=== PATIENT | female | born 1995 ===

== ENCOUNTER 2018-08-09 00:13 | Emergency (ER) | payer SELFPAY | END 2018-08-09 00:42 | disposition left against medical advice (07) | LOC: ED 00:13 | DX: F41.9 Anxiety disorder, unspecified (principal); Z53.21 Procedure and treatment not carried out due to patient leaving prior to being seen by health care provider ==

== ENCOUNTER 2018-11-16 14:07 | Inpatient (IN) | payer SELFPAY ==
[2018-11-16] MEDS ORDERED: NACL 0.9% 1000 ML 1,000 ML IV ONE ×2 (14:32→19:52)
[2018-11-16 15:27] LABS: Basophils % (Auto) 0.5 % (0.0-1.8); Eosinophils % (Auto) 0.5 % (0.0-4.3); Hematocrit 40.1 % (30.3-42.9); Hemoglobin 13.4 gm/dl (10.1-14.3); Lymphocytes # (Auto) 1.4 K/mm3 (1.2-5.4); Lymphocytes % (Auto) 19.7 % (13.4-35.0); Mean Corpuscular HGB Conc 33 % (30-34); Mean Corpuscular Volume 91 fl (79-97); Monocytes # (Auto) 0.7 K/mm3 (0.0-0.8); Monocytes % (Auto) 10.2 % (0.0-7.3); Platelet Count 155 K/mm3 (140-440); Red Blood Count 4.43 M/mm3 (3.65-5.03); Red Cell Distribution Width 18.9 % (13.2-15.2)
[2018-11-16 15:37] LABS: Alanine Aminotransferase 14 units/L (7-56); Albumin 4.5 g/dL (3.9-5); BUN/Creatinine Ratio 10; Blood Urea Nitrogen 9 mg/dL (7-17); Calcium 9.8 mg/dL (8.4-10.2); Hemolysis Index 5
[2018-11-16] MEDS ORDERED: DILAUDID IV ONE (17:46)
[2018-11-16] MEDS ORDERED: ZOFRAN IV ONE (17:46)
--- NOTE | 2018-11-16 17:53 | Emergency Department Report ---
<RODRI JONES - Last Filed: 11/16/18 21:58> ED Abdominal Pain HPI - General Chief Complaint: Abdominal Pain Stated Complaint: EXTREME GASTRIC PAIN Source: patient Mode of arrival: Ambulatory Limitations: No Limitations - History of Present Illness Initial Comments: This is a 22-year-old female that presents with abdominal pain, nausea, vomiting, and diarrhea for 3-4 days. Patient states diarrhea started 2 weeks ago and was intermittent. Patient states she drank 2 large beers per day. When symptoms subsided she will start drinking. Patient reports abdominal pain and vomiting increased since this morning. She also reports chest discomfort. She reports pain is 7 out of 10 on pain scale. A dull achy sensation to upper abdomen. She denies frequency, urgency, dysuria, vaginal bleeding, or vaginal discharge. MD Complaint: abdominal pain Onset/Timin -: days(s) Location: LUQ, RUQ Radiation: none Migration to: epigastric Severity: moderate Severity scale (0 -10): 7 Quality: aching, dull Consistency: constant Improves With: nothing Worsens With: eating, bowel movement Associated Symptoms: nausea, vomiting, diarrhea. denies: fever, chills, constipation, dysuria, hematemesis, hematochezia, melena, hematuria, anorexia, syncope Treatments Prior to Arrival: NSAIDs - Related Data LMP Date: 10/22/18 Allergies Allergy/AdvReac Type Severity Reaction Status Date / Time apple Allergy Itching Verified 11/16/18 14:29 Fish Containing Products Allergy Itching Verified 11/16/18 14:29 ED Review of Systems Constitutional: denies: chills, fever Respiratory: denies: cough, shortness of breath, wheezing Cardiovascular: chest pain (epigastric pain). denies: palpitations Gastrointestinal: abdominal pain (upper abdominal pain), nausea, vomiting, diarrhea Musculoskeletal: denies: back pain, joint swelling, arthralgia Skin: denies: rash, lesions Neurological: denies: headache, weakness, paresthesias Psychiatric: denies: anxiety, depression ED Past Medical Hx - Past Medical History Previous Medical History?: No - Surgical History Past Surgical History?: No - Social History Smoking Status: Current Every Day Smoker Substance Use Type: Alcohol ED Physical Exam - General Limitations: No Limitations General appearance: alert, in no apparent distress - Respiratory Respiratory exam: Present: normal lung sounds bilaterally. Absent: respiratory distress - Cardiovascular Cardiovascular Exam: Present: regular rate, normal rhythm. Absent: systolic murmur, diastolic murmur, rubs, gallop - GI/Abdominal GI/Abdominal exam: Present: soft, tenderness (left upper quadrant tenderness), normal bowel sounds. Absent: distended, guarding, rebound, rigid, organomegaly, mass - Back Exam Back exam: Absent: CVA tenderness (R), CVA tenderness (L) - Neurological Exam Neurological exam: Present: alert, oriented X3 - Psychiatric Psychiatric exam: Present: normal affect, normal mood - Skin Skin exam: Present: warm, dry, intact, normal color. Absent: rash ED Medical Decision Making - Lab Data Result diagrams: 11/16/18 15:08 11/16/18 15:08 Lab Results 11/16/18 11/16/18 11/16/18 Range/Units 15:08 15:08 19:38 WBC 7.1 (4.5-11.0) K/mm3 RBC 4.43 (3.65-5.03) M/mm3 Hgb 13.4 (10.1-14.3) gm/dl Hct 40.1 (30.3-42.9) % MCV 91 (79-97) fl MCH 30 (28-32) pg MCHC 33 (30-34) % RDW 18.9 H (13.2-15.2) % Plt Count 155 (140-440) K/mm3 Lymph % (Auto) 19.7 (13.4-35.0) % [place] % (Auto) 10.2 H (0.0-7.3) % Eos % (Auto) 0.5 (0.0-4.3) % Baso % (Auto) 0.5 (0.0-1.8) % Lymph # 1.4 (1.2-5.4) K/mm3 [place] # 0.7 (0.0-0.8) K/mm3 Eos # 0.0 (0.0-0.4) K/mm3 Baso # 0.0 (0.0-0.1) K/mm3 Seg Neutrophils % 69.1 (40.0-70.0) % Seg Neutrophils # 4.9 (1.8-7.7) K/mm3 Sodium 138 (137-145) mmol/L Potassium 3.8 (3.6-5.0) mmol/L Chloride 99.4 (98-107) mmol/L Carbon Dioxide 23 (22-30) mmol/L Anion Gap 19 mmol/L BUN 9 (7-17) mg/dL Creatinine 0.9 (0.7-1.2) mg/dL Estimated GFR > 60 ml/min BUN/Creatinine Ratio 10 % Glucose 110 H (65-100) mg/dL Calcium 9.8 (8.4-10.2) mg/dL Total Bilirubin 1.90 H (0.1-1.2) mg/dL AST 43 H (5-40) units/L ALT 14 (7-56) units/L Alkaline Phosphatase 73 (35-129) units/L Total Protein 8.3 H (6.3-8.2) g/dL Albumin 4.5 (3.9-5) g/dL Albumin/Globulin Ratio 1.2 % Lipase 464 H (13-60) units/L Urine Color Chey (Yellow) Urine Turbidity Slightly-cloudy (Clear) Urine pH 8.0 H (5.0-7.0) Ur Specific [place] 1.028 (1.003-1.030) Urine Protein 100 mg/dl (Negative) mg/dL Urine Glucose (UA) Neg (Negative) mg/dL Urine Ketones 20 (Negative) mg/dL Urine Blood Neg (Negative) Urine Nitrite Neg (Negative) Ur Reducing Substances Not Reportable Urine Bilirubin Sm (Negative) Urine Ictotest Negative (Negative) Urine Urobilinogen < 2.0 (<2.0) mg/dL Ur Leukocyte Esterase Tr (Negative) Urine WBC (Auto) 2.0 (0.0-6.0) /HPF Urine RBC (Auto) 1.0 (0.0-6.0) /HPF U Epithel Cells (Auto) 39.0 H (0-13.0) /HPF Urine Mucus 3+ /HPF Urine HCG, Qual Negative (Negative) - Radiology Data Radiology results: report reviewed FINAL REPORT PROCEDURE: US ABDOMEN LIMITED TECHNIQUE: Real-time sonography was performed of the right upper quadrant with image documentation. CPT 44844 HISTORY: LUQ tenderness, elevated lipase COMPARISON: No prior studies are available for comparison. FINDINGS: Liver, right kidney and visualized pancreatic head and body demonstrate normal echotexture. Gallbladder is well distended with normal outlines are normal wall thickness without calculi or pericholecystic collections. Common duct is 6 millimeters in caliber. Portal vein is patent with antegrade flow. Proximal abdominal aorta is 16 millimeters in caliber. Right kidney measures 10 x 4 x 4.4 centimeters without calculi or hydronephrosis.. IMPRESSION: Common duct is 6 millimeters in caliber. Otherwise negative study ultrasound right upper quadrant. - Medical Decision Making Patient was examined by me. Vitals are normal and patient is in slight distress. IV site obtained. Given normal saline 1 L bolus 2, Zofran 4 mg IV, and Dilaudid 2 mg IV. Obtained labs and ultrasound of abdomen. Ultrasound dictated by radiologist and report reviewed by myself. Common duct is 6 millimeters in caliber. Otherwise negative study ultrasound right upper quadrant. There is an elevation in bili young, liver enzymes, and lipase. Consulted with the attending Dr. Da Silva. Order CT of abdomen and pelvis with IV contrast, pending. Chart signed to Elise PACK J. ED Disposition Clinical Impression: Pancreatitis, alcoholic, acute Qualifiers: Acute pancreatitis complication: unspecified Qualified Code(s): K85.20 - Alcohol induced acute pancreatitis without necrosis or infection Disposition: OP ADMIT IP TO THIS HOSP Condition: Stable Instructions: Abdominal Pain (ED) Referrals: PRIMARY CARE, [Primary Care Provider] - 3-5 Days <ERICH CHOU - Last Filed: 11/17/18 01:51> ED Abdominal Pain HPI - History of Present Illness Initial Comments: Spoke to hospitalists regarding patient needed to be admitted. Hospitalist reports he'll be down to evaluate. ED Review of Systems ROS: Stated complaint: EXTREME GASTRIC PAIN Other details as noted in HPI ED Course Vital Signs 11/16/18 14:24 Temperature 97.8 F Pulse Rate 82 Respiratory 18 Rate Blood Pressure 152/109 O2 Sat by Pulse 100 Oximetry ED Medical Decision Making - Lab Data Result diagrams: 11/16/18 15:08 11/16/18 15:08 - Radiology Data FINAL REPORT EXAM: CT ABDOMEN PELVIS W CON HISTORY: LUQ tenderness, common bile duct 6 mm COMPARISON: Abdominal ultrasound from November 16, 2018. TECHNIQUE: Contiguous axial images were obtained. Additional sagittal and coronal reformatted images were obtained. Administration of IV contrast given per institution protocol. Images submitted for interpretation. FINDINGS: Mild linear atelectasis at the lung bases. No calcified gallstones or biliary dilatation. There is heterogeneous enhancement and edema of the pancreatic head and uncinate process with adjacent fat stranding or fluid. Findings compatible with acute pancreatitis. No abscess or evidence of pancreatic necrosis. There is secondary inflammation adjacent duodenum. Mild focal fatty infiltration of the liver along the falciform ligament. Mild diffuse fatty infiltration of the liver. Spleen is unremarkable. No adrenal mass. No solid renal lesion. No hydronephrosis. Aorta and IVC normal in caliber. Urinary bladder, uterus, right ovary grossly unremarkable. Dominant follicle left ovary measuring 1.7 centimeters. Small amount of free fluid in the pelvis. The appendix is normal in caliber. Left colon is decompressed causing accentuation of the colonic wall. Mild segmental colitis in that region is not excluded. Lumbar vertebral body heights are preserved. Bony pelvis is grossly intact. IMPRESSION: Findings compatible with [id number] acute pancreatitis involving the pancreatic head and uncinate process. There is reactive inflammation adjacent duodenum. Wall thickening left colon accentuated by decompressed state. Mild colitis in that region is not excluded. Transcribed By: LMA Dictated By: JETT PALUMBO MD Electronically Authenticated By: JETT PALUMBO MD Signed Date/Time: 11/17/18 0102 - Medical Decision Making Chart has been assigned to me by Ms. Cheryl Jones nurse practitioner. is aware of patient's case. Patient's CT shows a [id number] pancreatitis. We will light patient to be admitted to the hospital for pain control fluids. Critical care attestation.: If time is entered above; I have spent that time in minutes in the direct care of this critically ill patient, excluding procedure time. ED Disposition Is pt being admited?: Yes Does the pt Need Aspirin: No
[2018-11-16] MEDS ORDERED: DILAUDID ONE (18:12)
[2018-11-16] MEDS ORDERED: BENADRYL IV ONE (18:50)
[2018-11-16 20:10] LABS: HCG Qualitative,Urine Negative (Negative)
[2018-11-16 20:12] LABS: Bilirubin,Urine SM (Negative); Blood,Urine NEG (Negative); Color,Urine Amber (Yellow); Mucus,Urine 3+ /HPF; Urobilinogen,Urine < 2.0 mg/dL (<2.0)
[2018-11-16 20:21] LABS: Ictotest,Urine Negative (Negative)
--- NOTE | 2018-11-16 21:02 | Ultrasound Report ---
FINAL REPORT PROCEDURE: US ABDOMEN LIMITED TECHNIQUE: Real-time sonography was performed of the right upper quadrant with image documentation. CPT 61597 HISTORY: LUQ tenderness, elevated lipase COMPARISON: No prior studies are available for comparison. FINDINGS: Liver, right kidney and visualized pancreatic head and body demonstrate normal echotexture. Gallbladd er is well distended with normal outlines are normal wall thickness without calculi or pericholecysti c collections. Common duct is 6 millimeters in caliber. Portal vein is patent with antegrade flow. Pr oximal abdominal aorta is 16 millimeters in caliber. Right kidney measures 10 x 4 x 4.4 centimeters w ithout calculi or hydronephrosis.. IMPRESSION: Common duct is 6 millimeters in caliber. Otherwise negative study ultrasound right upper quadrant.
--- NOTE | 2018-11-17 01:02 | Cat Scan Report ---
FINAL REPORT EXAM: CT ABDOMEN PELVIS W CON HISTORY: LUQ tenderness, common bile duct 6 mm COMPARISON: Abdominal ultrasound from November 16, 2018. TECHNIQUE: Contiguous axial images were obtained. Additional sagittal and coronal reformatted images were obtained. Administration of IV contrast given per institution protocol. Images submitted for in terpretation. FINDINGS: Mild linear atelectasis at the lung bases. No calcified gallstones or biliary dilatation. There is he terogeneous enhancement and edema of the pancreatic head and uncinate process with adjacent fat stran ding or fluid. Findings compatible with acute pancreatitis. No abscess or evidence of pancreatic necr osis. There is secondary inflammation adjacent duodenum. Mild focal fatty infiltration of the liver along the falciform ligament. Mild diffuse fatty infiltrat ion of the liver. Spleen is unremarkable. No adrenal mass. No solid renal lesion. No hydronephrosis. Aorta and IVC normal in caliber. Urinary bladder, uterus, right ovary grossly unremarkable. Dominant follicle left ovary measuring 1.7 centimeters. Small amount of free fluid in the pelvis. The appendix is normal in caliber. Left colon is decompressed causing accentuation of the colonic wal l. Mild segmental colitis in that region is not excluded. Lumbar vertebral body heights are preserved. Bony pelvis is grossly intact. IMPRESSION: Findings compatible with hiua-bt-vnozngxo acute pancreatitis involving the pancreatic head and uncina te process. There is reactive inflammation adjacent duodenum. Wall thickening left colon accentuated by decompressed state. Mild colitis in that region is not excl uded.
[2018-11-17] MEDS ORDERED: ZOFRAN ONE (03:44)
[2018-11-17] MEDS ORDERED: DILAUDID ONE (03:44)
[2018-11-17] MEDS: ZOFRAN IV PRN ×2 (03:48→17:52)
[2018-11-17] MEDS: DILAUDID IV PRN ×2 (03:48→17:52)
[2018-11-17] MEDS ORDERED: BENADRYL IV PRN (04:12)
[2018-11-17] MEDS ORDERED: BENADRYL ONE (04:15)
[2018-11-17] MEDS: NACL 0.9% 1000 ML 1,000 ML IV SCH ×2 (06:00→17:51)
--- NOTE | 2018-11-17 07:43 | History and Physical Report ---
CHIEF COMPLAINT: Abdominal pain, nausea, vomiting, and diarrhea. HISTORY OF PRESENT ILLNESS: The patient is a 22-year-old female who has been having abdominal pain with nausea, vomiting, and diarrhea going on for 3-4 days. The patient said the diarrhea started about 2 weeks ago, but it was occurring intermittently with abdominal pain. The patient admitted to drinking 2 large beers every day and said that when her symptoms subside she will start drinking again. The patient states she has had similar symptoms before but did not have the pain get to this severe level. There is no history of fever or chills and no history of urinary frequency or dysuria. The patient presented for evaluation. PAST MEDICAL HISTORY: Pertinent for abdominal pain in the past. PAST SURGICAL HISTORY: Unremarkable. FAMILY HISTORY: Noncontributory. SOCIAL HISTORY: The patient drinks alcohol regularly. No cigarette, does not use illicit drugs. MEDICATIONS: The patient's home medications are not known at this time. ALLERGIES: THE PATIENT IS ALLERGIC TO APPLE, FISH, AND FISH CONTAINING PRODUCTS. REVIEW OF SYSTEMS: CONSTITUTIONAL: There is no fever, no chills, no diaphoresis. HEENT: There is no headache or sore throat. CARDIOVASCULAR SYSTEM: Show no chest pain or orthopnea. RESPIRATORY SYSTEM: There is no shortness of breath or cough. GASTROINTESTINAL SYSTEM: Abdominal pain is present. Nausea, vomiting, and diarrhea is present. No constipation. NEUROLOGICAL SYSTEM: There is no numbness, no dizziness, no altered mental status. MUSCULOSKELETAL SYSTEM: There is no joint pain or swelling. DERMATOLOGICAL SYSTEM: There is no skin rash or itching. GENITOURINARY SYSTEM: There is no dysuria, hematuria, or flank pain. Rest of system review is normal. PHYSICAL EXAMINATION: GENERAL: At the time of exam, the patient was found to be alert, oriented x 3, and not in acute distress. VITAL SIGNS: Shows temperature of 97.8 degrees Fahrenheit, pulse of 82, respirations 18, blood pressure 152/109, O2 sat of 100% on room air. HEENT: Shows pupils to be equal, round, and reactive to light and accommodating. Extraocular muscles are intact. NECK: Supple with no JVD or carotid bruits. CARDIOVASCULAR SYSTEM: Showed normal first and second heart sounds with no gallops or murmurs. RESPIRATORY SYSTEM: Show good air entry on both sides of the lungs with no abnormal breath sounds. GASTROINTESTINAL SYSTEM: Show abdomen to be full, soft, nontender with no organomegaly or rigidity. NEUROLOGIC: Shows no focal deficits. MUSCULOSKELETAL SYSTEM: Show no joint swelling or tenderness. DERMATOLOGICAL SYSTEM: Show no skin rash. GENITOURINARY SYSTEM: Showing no costovertebral angle tenderness. LABORATORY DATA AND IMAGING: The patient had a CT of the abdomen and pelvis done that shows findings compactable with mild to moderate acute pancreatitis involving the pancreatic head and the uncinate process, and also the CT report showed that there is reactive inflammation in the adjacent duodenum. The patient had abdominal ultrasound done that shows common bile duct of about 6 mm in caliber. DIAGNOSES: Acute pancreatitis. PLAN: 1. The patient will be admitted to medical surgical hurt. 2. The patient will remain n.p.o. until pain resolved. 3. The patient will be on IV normal saline at 125 mL an hour. 4. The patient will be on IV Dilaudid 1 mg every 4 hours as needed for pain and IV Zofran 4 mg every 8 hours for nausea and vomiting. 5. The patient will have a lipase level checked this morning. JOB# [id number] OCN/NTS
[2018-11-17] MEDS ORDERED: VASELINE LIP THERAPY TP PRN (08:01)
[2018-11-17] MEDS: HEPARIN SUB-Q SCH ×2 (09:43→21:34)
--- NOTE | 2018-11-17 11:04 | Event Note ---
Date: 11/17/18 Patient with abdominal pain, diagnosed with acute pancreatitis. Consult GI.
--- NOTE | 2018-11-17 11:44 | Gastroenterology Consultation ---
History of Present Illness - Reason for Consult Consult date: 11/17/18 acute pancreatitis Requesting physician: CISCO DOUGLASS - History of Present Illness 22 yo female with pmh of chronic alcohol use admitted for acute abdominal pain due to acute pancreatitis. She reports having upper abdominal pain for the past week, it was sharp nonradiating pain associated with nausea and vomiting. No fever, blood in the stool, or melena. She feels better this morning compared to last night. She wants to eat. No prior episode of pancreatitis. No weight loss. She drinks 2 beers daily at least for past several years. Past History Past Medical History: No medical history Past Surgical History: No surgical history Social history: alcohol abuse Medications and Allergies Allergies Allergy/AdvReac Type Severity Reaction Status Date / Time apple Allergy Itching Verified 11/16/18 14:29 Fish Containing Products Allergy Itching Verified 11/16/18 14:29 Home Medications Medication Instructions Recorded Confirmed Last Taken Type No Known Home Medications [No 11/17/18 11/17/18 Unknown History Reported Home Medications] Active Meds: Active Medications Diphenhydramine HCl (Benadryl) 25 mg IV Q6H PRN PRN Reason: Itching Last Admin: 11/17/18 04:18 Dose: 25 mg Documented by: Heparin Sodium (Porcine) (Heparin) 5,000 unit SUB-Q Q12HR DAMARIS Last Admin: 11/17/18 09:43 Dose: Not Given Documented by: Hydromorphone HCl (Dilaudid) 1 mg IV Q4H PRN PRN Reason: Pain , Severe (7-10) Last Admin: 11/17/18 03:48 Dose: 1 mg Documented by: Hydrophilic Ointment (Vaseline Lip Therapy) 1 applic TP DIRECT PRN PRN Reason: Dry Lips Sodium Chloride (Nacl 0.9% 1000 Ml) 1,000 mls @ 125 mls/hr IV DIRECT DAMARIS Last Admin: 11/17/18 06:00 Dose: 125 mls/hr Documented by: Ondansetron HCl (Zofran) 4 mg IV Q8H PRN PRN Reason: Nausea And Vomiting Last Admin: 11/17/18 03:48 Dose: 4 mg Documented by: Review of Systems - Review of Systems Constitutional: no weight loss, no weight gain Cardiovascular: no chest pain, no edema, no palpitations Gastrointestinal: abdominal pain, nausea, vomiting, no hematemesis Musculoskeletal: no joint pain, no muscle weakness Exam - Constitutional Vital Signs: Temp Pulse Resp BP Pulse Ox 98.7 F 80 14 132/89 99 11/17/18 04:30 11/17/18 06:00 11/17/18 06:00 11/17/18 04:30 11/17/18 04:30 General appearance: no acute distress - EENT Eyes: EOM intact ENT: hearing intact - Neck Neck: supple - Respiratory Respiratory effort: normal Respiratory: bilateral: CTA - Cardiovascular Rhythm: regular Heart Sounds: Present: S1 & S2 - Gastrointestinal General gastrointestinal: Present: soft, non-tender, non-distended, normal bowel sounds - Integumentary Integumentary: Present: clear, warm - Neurologic Neurological: alert and oriented x3 - Labs CBC & Chem 7: 11/16/18 15:08 11/16/18 15:08 Lab Results: Laboratory Results - last 24 hr 11/16/18 11/16/18 11/16/18 15:08 15:08 19:38 WBC 7.1 RBC 4.43 Hgb 13.4 Hct 40.1 MCV 91 MCH 30 MCHC 33 RDW 18.9 H Plt Count 155 Lymph % (Auto) 19.7 [place] % (Auto) 10.2 H Eos % (Auto) 0.5 Baso % (Auto) 0.5 Lymph # 1.4 [place] # 0.7 Eos # 0.0 Baso # 0.0 Seg Neutrophils % 69.1 Seg Neutrophils # 4.9 Sodium 138 Potassium 3.8 Chloride 99.4 Carbon Dioxide 23 Anion Gap 19 BUN 9 Creatinine 0.9 Estimated GFR > 60 BUN/Creatinine Ratio 10 Glucose 110 H Calcium 9.8 Total Bilirubin 1.90 H AST 43 H ALT 14 Alkaline Phosphatase 73 Total Protein 8.3 H Albumin 4.5 Albumin/Globulin Ratio 1.2 Lipase 464 H Urine Color Chey Urine Turbidity Slightly-cloudy Urine pH 8.0 H Ur Specific [place] 1.028 Urine Protein 100 mg/dl Urine Glucose (UA) Neg Urine Ketones 20 Urine Blood Neg Urine Nitrite Neg Ur Reducing Substances Not Reportable Urine Bilirubin Sm Urine Ictotest Negative Urine Urobilinogen < 2.0 Ur Leukocyte Esterase Tr Urine WBC (Auto) 2.0 Urine RBC (Auto) 1.0 U Epithel Cells (Auto) 39.0 H Urine Mucus 3+ Urine HCG, Qual Negative 11/17/18 05:30 WBC RBC Hgb Hct MCV MCH MCHC RDW Plt Count Lymph % (Auto) [place] % (Auto) Eos % (Auto) Baso % (Auto) Lymph # [place] # Eos # Baso # Seg Neutrophils % Seg Neutrophils # Sodium Potassium Chloride Carbon Dioxide Anion Gap BUN Creatinine Estimated GFR BUN/Creatinine Ratio Glucose Calcium Total Bilirubin AST ALT Alkaline Phosphatase Total Protein Albumin Albumin/Globulin Ratio Lipase 417 H Urine Color Urine Turbidity Urine pH Ur Specific [place] Urine Protein Urine Glucose (UA) Urine Ketones Urine Blood Urine Nitrite Ur Reducing Substances Urine Bilirubin Urine Ictotest Urine Urobilinogen Ur Leukocyte Esterase Urine WBC (Auto) Urine RBC (Auto) U Epithel Cells (Auto) Urine Mucus Urine HCG, Qual - Imaging CT Scan: report reviewed Assessment and Plan 22 yo female with h/o chronic alcohol use here with acute pancreatitis. - Patient Problems (1) Pancreatitis, alcoholic, acute Current Visit: Yes Status: Acute Qualifiers: Acute pancreatitis complication: unspecified Qualified Code(s): K85.20 - Alcohol induced acute pancreatitis without necrosis or infection Plan to address problem: Clinically improving. - Normal biliary duct and no gallstones seen on CT abdomen. - mild elevation of bilirubin and liver enzymes. Rec: - can start clear liquids and advance as tolerated. - continue with IVF. - recommend stool studies if continues to have diarrhea. - will follow.
[2018-11-18] MEDS: ZOFRAN IV PRN (05:56)
[2018-11-18] MEDS: NACL 0.9% 1000 ML 1,000 ML IV SCH (05:59)
[2018-11-18 06:07] LABS: Alanine Aminotransferase 9 units/L (7-56); Albumin 3.6 g/dL (3.9-5); BUN/Creatinine Ratio 7; Blood Urea Nitrogen 5 mg/dL (7-17); Calcium 8.5 mg/dL (8.4-10.2); Hemolysis Index 9
[2018-11-18 13:36] VITALS: BP 142/92
--- NOTE | 2018-11-18 14:10 | Discharge Summary ---
Providers - Providers Date of Admission: 11/17/18 01:50 Date of discharge: 11/18/18 Attending physician: CISCO DOUGLASS 11/17/18 11:02 Consult to Physician [CONS] Routine Comment: Consulting Provider: VICKY JURADO Physician Instructions: Reason For Exam: Acute pancreatitis Primary care physician: [facility]ETING [facility]EARCHER Hospitalization Condition: Fair Hospital course: Patient is 23 yo presented with abdominal pain, nausea and vomiting. She was evaluated in ED and diagnosed with acute pancreatitis. Patient was admitted, evaluated by GI. She improved, was started on liquid diet, tolearated diet and was advanced. She was then discharged home after pain resolved Disposition: DC-01 TO HOME OR SELFCARE - Discharge Diagnoses (1) Pancreatitis, alcoholic, acute Status: Acute Qualifiers: Acute pancreatitis complication: unspecified Qualified Code(s): K85.20 - Alcohol induced acute pancreatitis without necrosis or infection (2) Hypokalemia Status: Acute Core Measure Documentation - Palliative Care Palliative Care/ Comfort Measures: Not Applicable - Core Measures Any of the following diagnoses?: none Exam - Constitutional Vitals: Temp Pulse Resp BP Pulse Ox 98.1 F 65 20 142/92 97 11/18/18 11:38 11/18/18 11:38 11/18/18 11:38 11/18/18 11:38 11/18/18 11:38 Plan Activity: no restrictions Diet: low fat, low cholesterol, low salt Additional Instructions: 1.Follow up with PCP or [facility] in 1 week. 2.Follow up with [facility] in 1 week. 3.Avoid Alcohol Follow up with: PRIMARY CARE, [Primary Care Provider] - 3-5 Days Prescriptions: Promethazine [Phenergan TAB] 25 mg PO Q6HR PRN #20 tab PRN Reason: Nausea or vomiting Tramadol HCl [Ultram] 50 mg PO Q6H PRN #10 tablet PRN Reason: Pain , Severe (7-10)
--- NOTE | 2018-11-18 14:15 | Gastroenterology Progress Note ---
Addendum entered and electronically signed by VICKY JURADO MD 11/18/18 18:14: Patient seen and examined on 11/18/2017. Agree with A/P and recommendations as stated. Clinically improving and tolerating liquids. Ok for discharge if tolerating solids. Original Note: Assessment and Plan 1.acute pancreatitis 22 yo female with h/o chronic alcohol use here with acute pancreatitis. -afebrile -WBC WNL -LFTs now WNL -lipase trending down (285) -normal biliary duct and no gallstones see on CT -clinically, patient reports feeling better with abd pain now resolved and no N/V. Tolerating clears. -advance diet to GI soft -alcohol cessation discussed/encouraged with patient -continue to trend labs and supportive care -if tolerates advanced diet, okay to d/c per GI standpoint with follow up in clinic Subjective Date of service: 11/18/18 Principal diagnosis: pancreatitis Interval history: No acute distress. Reports feeling better with no abd pain or N/V. Tolerating clears. Objective - Constitutional Vitals: Temp Pulse Resp BP Pulse Ox 98.1 F 65 20 142/92 97 11/18/18 11:38 11/18/18 11:38 11/18/18 11:38 11/18/18 11:38 11/18/18 11:38 General appearance: no acute distress - Respiratory Respiratory: bilateral: CTA - Cardiovascular Rhythm: regular Heart Sounds: Present: S1 & S2 - Gastrointestinal General gastrointestinal: Present: soft, non-tender, non-distended, normal bowel sounds - Neurologic Neurological: alert and oriented x3 - Labs CBC & Chem 7: 11/16/18 15:08 11/18/18 05:26 Labs: Laboratory Results - last 24 hr 11/18/18 05:26 Sodium 136 L Potassium 3.5 L Chloride 99.9 Carbon Dioxide 23 Anion Gap 17 BUN 5 L Creatinine 0.7 Estimated GFR > 60 BUN/Creatinine Ratio 7 Glucose 89 Calcium 8.5 Total Bilirubin 1.10 AST 18 ALT 9 Alkaline Phosphatase 52 Total Protein 6.6 D Albumin 3.6 L Albumin/Globulin Ratio 1.2 Lipase 285 H
[2018-11-18] MEDS: HEPARIN SUB-Q SCH (16:18)
== END 2018-11-18 18:36 | disposition home or self-care (01) | DRG 440 ==
LOC: ED 14:07 → 3A 11-17 01:50
PROVIDERS: ADMIT Internal Medicine; ATTEND Internal Medicine
DX: K85.20 Alcohol induced acute pancreatitis without necrosis or infection (principal); F17.200 Nicotine dependence, unspecified, uncomplicated; F10.10 Alcohol abuse, uncomplicated
CPT/HCPCS: 36415; 74177; 76700; 80053; 81001; 81025; 83690; 85025; 96374; 99285; G0378; J1170; J1200; J1644; J2405; J7030; Q9967

== ENCOUNTER 2019-02-15 14:02 | Emergency (ER) | payer OTHER ==
[2019-02-15] MEDS ORDERED: D50W (25GM) Syringe IV ONE ×4 (14:05→21:35)
[2019-02-15] MEDS ORDERED: ATIVAN ONE (14:13)
[2019-02-15] MEDS ORDERED: ATIVAN IV ONE (14:14)
[2019-02-15] MEDS: D50W (25GM) Vial IV PRN ×2 (14:16→21:24)
--- NOTE | 2019-02-15 14:18 | Emergency Department Report ---
<CISCO MUNIZ - Last Filed: 02/15/19 18:53> ED General Adult HPI - General Chief complaint: Altered Mental Status Stated complaint: SEIZURE/FELL Time Seen by Provider: 02/15/19 14:11 Source: patient, RN notes reviewed Mode of arrival: Stretcher Limitations: Altered Mental Status, Physical Limitation - History of Present Illness Initial comments: This is a 23-year-old female. The patient is not known to this provider previously The patient apparently has a past medical history of alcohol abuse, and pancreatitis. The patient is brought to the hospital by an unknown person. Apparently, the patient was walking into the waiting room, for an unknown reason, and then apparently fell and had a seizure. The patient was brought back emergently. Initially in the emergency room, the patient is awake but confused, and moving 4 extremities. She is found to have evidence of self-inflicted wounds on her left upper extremities. One of these wounds appears to be fresh. Patient was found to be hypoglycemic with a sugar of less than 20. Patient was given 2 A of D50. After 2 A of D50, the patient became more awake. However, she was still confused, stated she was here to get checked out for . She then stated she wasn't sure if she was . She may note comments about homicidality or suicidality. When asked about the apparent self-inflicted wounds on her left upper extremity, the patient was not able to say when they were sustained, and she was evasive about whether or not she cut herself. She was placed on a 1013 for presumed self-injurious behavior, and inability to care for herself, as well as alcohol dependence. No active seizures so far since her initial seizure. Her initial ciwa score was 6 -: This afternoon Quality: constant Improves with: none Worsens with: none - Related Data Home Medications Medication Instructions Recorded Confirmed Last Taken No Known Home Medications [No 02/15/19 02/15/19 Unknown Reported Home Medications] Allergies Allergy/AdvReac Type Severity Reaction Status Date / Time apple Allergy Itching Verified 11/16/18 14:29 Fish Containing Products Allergy Itching Verified 11/16/18 14:29 ED Review of Systems Comment: Unobtainable due to pts medical conditions Constitutional: malaise Gastrointestinal: denies: vomiting Neurological: confusion Psychiatric: anxiety ED Past Medical Hx - Past Medical History Hx Congestive Heart Failure: No Hx Diabetes: No Hx Seizures: Yes Hx Asthma: Yes Hx COPD: No - Social History Smoking Status: Current Every Day Smoker - Medications Home Medications: Home Medications Medication Instructions Recorded Confirmed Last Taken Type No Known Home Medications [No 02/15/19 02/15/19 Unknown History Reported Home Medications] ED Physical Exam - General Limitations: Altered Mental Status General appearance: in no apparent distress - Head Head exam: Present: other (is a left infraorbital ecchymosis) - Eye Eye exam: Present: PERRL, EOMI. Absent: normal appearance - ENT ENT exam: Present: normal exam, normal orophraynx, mucous membranes moist, normal external ear exam - Neck Neck exam: Present: normal inspection, full ROM. Absent: tenderness, meningismus - Respiratory Respiratory exam: Present: normal lung sounds bilaterally. Absent: respiratory distress - Cardiovascular Cardiovascular Exam: Present: normal rhythm, tachycardia, normal heart sounds. Absent: systolic murmur, diastolic murmur, rubs, gallop - GI/Abdominal GI/Abdominal exam: Present: soft. Absent: distended, tenderness, guarding, rebound, rigid, pulsatile mass - Extremities Exam Extremities exam: Present: full ROM, other (2+ pulses noted in the bilateral upper, lower extremities. Compartments soft. No long bony tenderness. The pelvis is stable.). Absent: normal inspection (numerous linear cuts noted to the left upper extremity, many appear to be old, however, there is a fresh appearing cut with a scab on the distal volar aspect of the left upper extremity. This is associated with a 3-4 cm linear cut), pedal edema, calf tenderness - Back Exam Back exam: Present: normal inspection, full ROM - Neurological Exam Neurological exam: Present: altered, other (Extraocular movements intact. Tongue midline. No facial droop. Facial sensation intact to light touch in the V1, V2, V3 distribution bilaterally. 5 and 5 strength in 4 extremities.. Sensation is intact to light touch in 4 extremities.) - Psychiatric Psychiatric exam: Present: anxious - Skin Skin exam: Present: warm, dry, intact, normal color, ecchymosis (she has a left infraorbital ecchymosis. She cannot tell me she has she sustained this ecchymosis). Absent: rash ED Course - Reevaluation(s) Reevaluation #1: 02/15/19 17:12 Differential diagnosis, including not limited to: Alcohol dependence, alcohol withdrawal seizure, starvation ketosis, hypoglycemia, malnutrition, electrolyte derangement Assessment and plan: 23-year-old female with known history of alcohol abuse, dependence, who has evidence of self-inflicted wounds, and has an incongruous history as to how she got a left infraorbital ecchymosis, and left upper extremity, wound, with resolved hypoglycemia. Patient given 2 A of D50, and then screening laboratory studies were drawn. Therefore, I suspect her hyperglycemia is secondary to medications that were given. Her anion gap is reviewed and appreciated, and likely starvation ketosis, dehydration, secondary to seizure. Other screening laboratory studies so far have been unremarkable. Noncontrast CT scan of the brain is negative for acute disease. Patient now awake and alert, moving 4 extremities, has a nonfocal motor exam, with no cervical spine pain or tenderness. Currently, at this point time, she is clinically sober. I'm concerned about self-injurious behavior, suicidality, and alcohol dependence. The patient my pain at this point in time represents a danger to herself, manifested by left upper extremity wounds, consistent with self- mutilation, as well as alcohol dependence, alcohol withdrawal. She this point time does not damage straight the ability to independently care for herself. We will correct her electrolyte derangements, I started her on D5 half-normal, and obtain a psychiatric consultation. Reevaluation #2: 02/15/19 18:53 Patient reassessed She is afebrile with reassuring vital signs. She is now much more awake and alert. She reports that her boyfriend's mother brought her to the hospital. She reports that she was coming to the hospital for evaluation of one year of chest discomfort, and "intestinal discomfort." Her anion gap has improved, lactic acidosis is not present, patient tolerating liquid feeds and oral feeds, and has not had significant hypoglycemia. She is seen and evaluated by the psychiatric team, who agrees that patient is 1013 criteria. We will continue the patient on glycemic monitoring, Macrobid, alcohol withdrawal protocol, and potassium repletion. At this point in time, that is not appear to be in immediate medical contraindication to psychiatric admission, evaluation, consultation. Reevaluation #3: 02/15/19 18:56 Patient does not require laceration repair, the left distal volar wrist injury may be managed with soap, water, and as stated bacitracin. ED Medical Decision Making - Lab Data Result diagrams: 02/15/19 14:17 02/15/19 17:30 Vital Signs 02/15/19 02/15/19 02/15/19 14:05 14:20 14:26 Temperature 98.4 F 98.4 F Pulse Rate 110 H 107 H Respiratory 22 20 Rate Blood Pressure Blood Pressure 155/88 [Right] O2 Sat by Pulse 98 98 97 Oximetry 02/15/19 02/15/19 02/15/19 14:30 14:46 15:00 Temperature Pulse Rate 114 H 102 H 96 H Respiratory 18 22 22 Rate Blood Pressure 145/87 143/101 Blood Pressure [Right] O2 Sat by Pulse 97 99 98 Oximetry 02/15/19 02/15/19 02/15/19 15:02 15:24 15:30 Temperature Pulse Rate 97 H Respiratory 20 22 Rate Blood Pressure 143/101 128/100 Blood Pressure [Right] O2 Sat by Pulse 97 98 Oximetry 02/15/19 02/15/19 02/15/19 15:46 16:00 16:16 Temperature Pulse Rate 92 H 87 88 Respiratory 20 21 17 Rate Blood Pressure 143/101 135/93 135/93 Blood Pressure [Right] O2 Sat by Pulse 97 98 96 Oximetry Lab Results 02/15/19 02/15/19 02/15/19 Range/Units 14:17 14:17 14:17 WBC 5.2 (4.5-11.0) K/mm3 RBC 4.10 (3.65-5.03) M/mm3 Hgb 13.0 (10.1-14.3) gm/dl Hct 39.7 (30.3-42.9) % MCV 97 (79-97) fl MCH 32 (28-32) pg MCHC 33 (30-34) % RDW 16.1 H (13.2-15.2) % Plt Count 95 L (140-440) K/mm3 PT 14.5 (12.2-14.9) Sec. INR 1.06 (0.87-1.13) Sodium 130 L (137-145) mmol/L Potassium 3.8 (3.6-5.0) mmol/L Chloride 88.9 L (98-107) mmol/L Carbon Dioxide 13 L (22-30) mmol/L Anion Gap 32 mmol/L BUN 10 (7-17) mg/dL Creatinine 0.8 (0.7-1.2) mg/dL Estimated GFR > 60 ml/min BUN/Creatinine Ratio 13 % Glucose 426 H (65-100) mg/dL POC Glucose (70-105) Calcium 8.9 (8.4-10.2) mg/dL Magnesium 1.30 L (1.7-2.3) mg/dL Total Bilirubin 1.00 (0.1-1.2) mg/dL AST 60 H (5-40) units/L ALT 35 (7-56) units/L Alkaline Phosphatase 50 (35-129) units/L Total Creatine Kinase (30-135) units/L Total Protein 7.9 (6.3-8.2) g/dL Albumin 4.4 (3.9-5) g/dL Albumin/Globulin Ratio 1.3 % HCG, Quant (0-4) mIU/mL Urine Color (Yellow) Urine Turbidity (Clear) Urine pH (5.0-7.0) Ur Specific [place] (1.003-1.030) Urine Protein (Negative) mg/dL Urine Glucose (UA) (Negative) mg/dL Urine Ketones (Negative) mg/dL Urine Blood (Negative) Urine Nitrite (Negative) Urine Bilirubin (Negative) Urine Urobilinogen (<2.0) mg/dL Ur Leukocyte Esterase (Negative) Urine WBC (Auto) (0.0-6.0) /HPF Urine RBC (Auto) (0.0-6.0) /HPF U Epithel Cells (Auto) (0-13.0) /HPF Urine Bacteria (Auto) (Negative) /HPF Urine Mucus /HPF Salicylates (2.8-20.0) mg/dL Urine Opiates Screen Urine Methadone Screen Acetaminophen (10.0-30.0) ug/mL Ur Barbiturates Screen Ur Phencyclidine Scrn Ur Amphetamines Screen U Benzodiazepines Scrn Urine Cocaine Screen U Marijuana (THC) Screen Drugs of Abuse Note Plasma/Serum Alcohol (0-0.07) % 02/15/19 02/15/19 02/15/19 Range/Units 14:17 14:17 14:22 WBC (4.5-11.0) K/mm3 RBC (3.65-5.03) M/mm3 Hgb (10.1-14.3) gm/dl Hct (30.3-42.9) % MCV (79-97) fl MCH (28-32) pg MCHC (30-34) % RDW (13.2-15.2) % Plt Count (140-440) K/mm3 PT (12.2-14.9) Sec. INR (0.87-1.13) Sodium (137-145) mmol/L Potassium (3.6-5.0) mmol/L Chloride (98-107) mmol/L Carbon Dioxide (22-30) mmol/L Anion Gap mmol/L BUN (7-17) mg/dL Creatinine (0.7-1.2) mg/dL Estimated GFR ml/min BUN/Creatinine Ratio % Glucose (65-100) mg/dL POC Glucose (70-105) Calcium (8.4-10.2) mg/dL Magnesium (1.7-2.3) mg/dL Total Bilirubin (0.1-1.2) mg/dL AST (5-40) units/L ALT (7-56) units/L Alkaline Phosphatase (35-129) units/L Total Creatine Kinase 219 H (30-135) units/L Total Protein (6.3-8.2) g/dL Albumin (3.9-5) g/dL Albumin/Globulin Ratio % HCG, Quant < 2 (0-4) mIU/mL Urine Color (Yellow) Urine Turbidity (Clear) Urine pH (5.0-7.0) Ur Specific [place] (1.003-1.030) Urine Protein (Negative) mg/dL Urine Glucose (UA) (Negative) mg/dL Urine Ketones (Negative) mg/dL Urine Blood (Negative) Urine Nitrite (Negative) Urine Bilirubin (Negative) Urine Urobilinogen (<2.0) mg/dL Ur Leukocyte Esterase (Negative) Urine WBC (Auto) (0.0-6.0) /HPF Urine RBC (Auto) (0.0-6.0) /HPF U Epithel Cells (Auto) (0-13.0) /HPF Urine Bacteria (Auto) (Negative) /HPF Urine Mucus /HPF Salicylates (2.8-20.0) mg/dL Urine Opiates Screen Urine Methadone Screen Acetaminophen (10.0-30.0) ug/mL Ur Barbiturates Screen Ur Phencyclidine Scrn Ur Amphetamines Screen U Benzodiazepines Scrn Urine Cocaine Screen U Marijuana (THC) Screen Drugs of Abuse Note Plasma/Serum Alcohol < 0.01 (0-0.07) % 02/15/19 02/15/19 02/15/19 Range/Units 14:22 14:22 14:22 WBC (4.5-11.0) K/mm3 RBC (3.65-5.03) M/mm3 Hgb (10.1-14.3) gm/dl Hct (30.3-42.9) % MCV (79-97) fl MCH (28-32) pg MCHC (30-34) % RDW (13.2-15.2) % Plt Count (140-440) K/mm3 PT (12.2-14.9) Sec. INR (0.87-1.13) Sodium (137-145) mmol/L Potassium (3.6-5.0) mmol/L Chloride (98-107) mmol/L Carbon Dioxide (22-30) mmol/L Anion Gap mmol/L BUN (7-17) mg/dL Creatinine (0.7-1.2) mg/dL Estimated GFR ml/min BUN/Creatinine Ratio % Glucose (65-100) mg/dL POC Glucose (70-105) Calcium (8.4-10.2) mg/dL Magnesium (1.7-2.3) mg/dL Total Bilirubin (0.1-1.2) mg/dL AST (5-40) units/L ALT (7-56) units/L Alkaline Phosphatase (35-129) units/L Total Creatine Kinase (30-135) units/L Total Protein (6.3-8.2) g/dL Albumin (3.9-5) g/dL Albumin/Globulin Ratio % HCG, Quant (0-4) mIU/mL Urine Color [place]y (Yellow) Urine Turbidity Slightly-cloudy (Clear) Urine pH 6.0 (5.0-7.0) Ur Specific [place] 1.033 H (1.003-1.030) Urine Protein 30 mg/dl (Negative) mg/dL Urine Glucose (UA) 50 (Negative) mg/dL Urine Ketones 80 (Negative) mg/dL Urine Blood Neg (Negative) Urine Nitrite Pos (Negative) Urine Bilirubin Neg (Negative) Urine Urobilinogen < 2.0 (<2.0) mg/dL Ur Leukocyte Esterase Sm (Negative) Urine WBC (Auto) 12.0 H (0.0-6.0) /HPF Urine RBC (Auto) 5.0 (0.0-6.0) /HPF U Epithel Cells (Auto) 15.0 H (0-13.0) /HPF Urine Bacteria (Auto) 1+ (Negative) /HPF Urine Mucus 3+ /HPF Salicylates < 0.3 L (2.8-20.0) mg/dL Urine Opiates Screen Urine Methadone Screen Acetaminophen < 5.0 L (10.0-30.0) ug/mL Ur Barbiturates Screen Ur Phencyclidine Scrn Ur Amphetamines Screen U Benzodiazepines Scrn Urine Cocaine Screen U Marijuana (THC) Screen Drugs of Abuse Note Plasma/Serum Alcohol (0-0.07) % 02/15/19 02/15/19 02/15/19 Range/Units 14:22 15:03 16:07 WBC (4.5-11.0) K/mm3 RBC (3.65-5.03) M/mm3 Hgb (10.1-14.3) gm/dl Hct (30.3-42.9) % MCV (79-97) fl MCH (28-32) pg MCHC (30-34) % RDW (13.2-15.2) % Plt Count (140-440) K/mm3 PT (12.2-14.9) Sec. INR (0.87-1.13) Sodium (137-145) mmol/L Potassium (3.6-5.0) mmol/L Chloride (98-107) mmol/L Carbon Dioxide (22-30) mmol/L Anion Gap mmol/L BUN (7-17) mg/dL Creatinine (0.7-1.2) mg/dL Estimated GFR ml/min BUN/Creatinine Ratio % Glucose (65-100) mg/dL POC Glucose 206 H 137 H (70-105) Calcium (8.4-10.2) mg/dL Magnesium (1.7-2.3) mg/dL Total Bilirubin (0.1-1.2) mg/dL AST (5-40) units/L ALT (7-56) units/L Alkaline Phosphatase (35-129) units/L Total Creatine Kinase (30-135) units/L Total Protein (6.3-8.2) g/dL Albumin (3.9-5) g/dL Albumin/Globulin Ratio % HCG, Quant (0-4) mIU/mL Urine Color (Yellow) Urine Turbidity (Clear) Urine pH (5.0-7.0) Ur Specific [place] (1.003-1.030) Urine Protein (Negative) mg/dL Urine Glucose (UA) (Negative) mg/dL Urine Ketones (Negative) mg/dL Urine Blood (Negative) Urine Nitrite (Negative) Urine Bilirubin (Negative) Urine Urobilinogen (<2.0) mg/dL Ur Leukocyte Esterase (Negative) Urine WBC (Auto) (0.0-6.0) /HPF Urine RBC (Auto) (0.0-6.0) /HPF U Epithel Cells (Auto) (0-13.0) /HPF Urine Bacteria (Auto) (Negative) /HPF Urine Mucus /HPF Salicylates (2.8-20.0) mg/dL Urine Opiates Screen Presumptive negative Urine Methadone Screen Presumptive negative Acetaminophen (10.0-30.0) ug/mL Ur Barbiturates Screen Presumptive negative Ur Phencyclidine Scrn Presumptive negative Ur Amphetamines Screen Presumptive negative U Benzodiazepines Scrn Presumptive negative Urine Cocaine Screen Presumptive negative U Marijuana (THC) Screen Presumptive negative Drugs of Abuse Note Disclamer Plasma/Serum Alcohol (0-0.07) % - EKG Data -: EKG Interpreted by Me EKG shows normal: sinus rhythm - EKG Data When compared to previous EKG there are: previous EKG unavailable 02/15/19 17:15 This is a left axis deviation, sinus, 92 bpm, left anterior fascicular block, atrial enlargement, not having chest pain, this is abnormal EKG, this is not consistent with ST elevation myocardial infarction. - Radiology Data Radiology results: report reviewed, image reviewed interpreted by me: Noncontrast CT scan of the brain is interpreted as negative for acute disease. X-ray the chest is negative for acute disease. Critical Care Time: Yes Critical care time in (mins) excluding proc time.: 60 ED Disposition Clinical Impression: Hypokalemia, Alcohol withdrawal seizure, Self-injurious behavior, Nausea and vomiting, Hypomagnesemia, Thrombocytopenia, UTI (urinary tract infection), Medical clearance for psychiatric admission Disposition: DC/TX-65 PSY HOSP/PSY UNIT Is pt being admited?: No Does the pt Need Aspirin: No Condition: Stable Referrals: CAROLINA MONDRAGON MD [Primary Care Provider] - 3-5 Days <NIMO HOLLINGSWORTH - Last Filed: 02/16/19 04:03> ED Review of Systems ROS: Stated complaint: SEIZURE/FELL Other details as noted in HPI ED Course Vital Signs 02/15/19 02/15/19 02/15/19 14:05 14:20 14:26 Temperature 98.4 F 98.4 F Pulse Rate 110 H 107 H Respiratory 22 20 Rate Blood Pressure Blood Pressure 155/88 [Right] O2 Sat by Pulse 98 98 97 Oximetry 02/15/19 02/15/19 02/15/19 14:30 14:46 15:00 Temperature Pulse Rate 114 H 102 H 96 H Respiratory 18 22 22 Rate Blood Pressure 145/87 143/101 Blood Pressure [Right] O2 Sat by Pulse 97 99 98 Oximetry 02/15/19 02/15/19 02/15/19 15:02 15:24 15:30 Temperature Pulse Rate 97 H Respiratory 20 22 Rate Blood Pressure 143/101 128/100 Blood Pressure [Right] O2 Sat by Pulse 97 98 Oximetry 02/15/19 02/15/19 02/15/19 15:46 16:00 16:16 Temperature Pulse Rate 92 H 87 88 Respiratory 20 21 17 Rate Blood Pressure 143/101 135/93 135/93 Blood Pressure [Right] O2 Sat by Pulse 97 98 96 Oximetry 02/15/19 02/15/19 02/15/19 16:30 16:46 17:00 Temperature Pulse Rate Respiratory Rate Blood Pressure 139/103 139/103 139/103 Blood Pressure [Right] O2 Sat by Pulse 99 98 96 Oximetry 02/15/19 02/15/19 02/15/19 17:16 17:30 17:46 Temperature Pulse Rate 102 H 94 H Respiratory 22 16 Rate Blood Pressure 139/103 143/97 143/97 Blood Pressure [Right] O2 Sat by Pulse 97 100 99 Oximetry 02/15/19 02/15/19 02/15/19 19:00 19:30 19:40 Temperature 98.2 F Pulse Rate 96 H 82 Respiratory 21 18 15 Rate Blood Pressure 112/76 Blood Pressure 131/91 [Right] O2 Sat by Pulse 95 100 100 Oximetry 02/15/19 02/15/19 02/16/19 23:00 23:18 01:00 Temperature Pulse Rate 96 H 93 H 73 Respiratory 18 22 16 Rate Blood Pressure 131/91 131/91 139/103 Blood Pressure [Right] O2 Sat by Pulse 100 99 97 Oximetry - Reevaluation(s) Reevaluation #4: 02/16/19 00:02 RN informed me the patient complains of headache, pain with swallowing, and upper abdominal pain. Patient states she came here because she had nausea, vomiting for the past 2 days with upper abdominal pain. History of pancreatitis and gallstones as per patient. On previous medical record review patient was admitted here in November 2018 for acute pancreatitis. Right upper quadrant ultrasound did not show gallstones at that time. There was She has not had alcohol in 2 days due to these symptoms and has a history of alcohol withdrawal tremors. As per record patient presented with seizures when Dr. Muniz assessed the patient. Patient also is noted to have a UTI and recurrent hypoglycemia despite D5 saline infusion. Patient requiring repeated IV bolus of D50. Patient does have some mild epigastric pain. Lipase added to last lab draw. We will perform CT abdomen and pelvis. Macrobid ordered by Dr. Muniz To start tomorrow. Rocephin dose ordered in ED. I suspect that initial elevated anion gap due to alcohol ketosis vs starvation ketosis given elevated ketones in urine. Additional d5 1/2 Ns ordered at 200ml/hr 02/16/19 03:50 D5 1/2 NS was never started by RN after completion of 1L bolus ordered by Dr Muniz. RN has been providing juice to pt who is tolerating po intake. ct abd/pelvis does not show any acute findings and lipase only mildly elevated. 02/16/19 03:57 repeat glucose in 100 range. Nurse informed to continue IVF as ordered for another liter and encourge fluid intake. will add prn zofran orders for nausea. awaiting mental health assessment for placement. Thrombocytopenia noted likely secondary to chronic alcohol abuse. ED Medical Decision Making - Lab Data Result diagrams: 02/15/19 14:17 02/15/19 17:30 - Radiology Data PROCEDURE: CT ABDOMEN PELVIS W CON TECHNIQUE: Computerized axial tomography of the abdomen and pelvis was performed after the IV injection of iodinated nonionic contrast. CT DOSE LENGTH PRODUCT: mGycm HISTORY: upper abd pain n,v x2 days COMPARISONS: None . FINDINGS: Visualized lower thorax: No significant abnormality. Liver: The liver is enlarged and fatty. There is no discrete mass.. Spleen: Normal size and attenuation. Gallbladder and biliary system: Normal. Pancreas: Normal. Adrenals: Normal. Kidneys: Normal. GI tract: There is no bowel obstruction, colitis or enteritis. The appendix is normal. . Lymph nodes and mesentery: Normal. Vasculature: Normal.. Bladder: Normal. Reproductive organs: Uterus is unremarkable. There is a 4 cm cyst in the left ovary.. Peritoneum: There is no ascites or free air, abscess or adenopathy.. Musculoskeletal structures: No significant abnormality. IMPRESSION: The liver is enlarged and fatty. There is no discrete mass. There is no bowel obstruction, colitis or enteritis. The appendix is normal. Uterus is unremarkable. There is a 4 cm cyst in the left ovary. There is no ascites or free air, abscess or adenopathy. Critical care attestation.: If time is entered above; I have spent that time in minutes in the direct care of this critically ill patient, excluding procedure time. ED Disposition Time of Disposition: 04:01 (awaiting acceptance)
[2019-02-15 14:41] LABS: Hematocrit 39.7 % (30.3-42.9); Mean Corpuscular HGB Conc 33 % (30-34); Mean Corpuscular Volume 97 fl (79-97); Red Cell Distribution Width 16.1 % (13.2-15.2)
[2019-02-15 14:46] LABS: Bacteria,Urine 1+ /HPF (Negative); Bilirubin,Urine NEG (Negative); Blood,Urine NEG (Negative); Color,Urine Amber (Yellow); Mucus,Urine 3+ /HPF; Urobilinogen,Urine < 2.0 mg/dL (<2.0)
[2019-02-15 14:51] LABS: INR 1.06 (0.87-1.13)
[2019-02-15 14:52] LABS: Amphetamine Screen,Urine PRESUMPTIVE NEGATIVE; Benzodiazepines Screen,Urine PRESUMPTIVE NEGATIVE; Cannabinoid Screen,Urine PRESUMPTIVE NEGATIVE; Cocaine Screen,Urine PRESUMPTIVE NEGATIVE; Methadone Screen,Urine PRESUMPTIVE NEGATIVE; Opiate Screen,Urine PRESUMPTIVE NEGATIVE
[2019-02-15 14:57] LABS: Alanine Aminotransferase 35 units/L (7-56); Albumin 4.4 g/dL (3.9-5); BUN/Creatinine Ratio 13; Blood Urea Nitrogen 10 mg/dL (7-17); Calcium 8.9 mg/dL (8.4-10.2); Hemolysis Index 23
[2019-02-15 15:18] LABS: Platelet Count 95 K/mm3 (140-440)
[2019-02-15] MEDS ORDERED: MAGNESIUM SULFATE 2GM/50ML 2 GM/50 ML BAG IV ONE (15:46)
[2019-02-15] MEDS ORDERED: NACL 0.9% 1000 ML 2,000 ML IV ONE (15:46)
[2019-02-15] MEDS ORDERED: ATIVAN IV PRN ×2 (15:46)
--- NOTE | 2019-02-15 16:20 | Cat Scan Report ---
PROCEDURE: CT HEAD/BRAIN WO CON TECHNIQUE: Spiral CT imaging of the brain was obtained without the use of IV contrast. HISTORY: sz facial trauma` COMPARISONS: FINDINGS: Brain: Brain density appears normal. No evidence of intracranial hemorrhage. No parenchymal hemorr obdulia, mass lesions or mass effect are seen. No abnormal extra-axial fluid collects or masses are see n. Ventricles: Ventricles are normal size and are midline. Bone Windows: No evidence of skull fracture. Paranasal sinuses: There is mild mucosal thickening in posterior ethmoid air cells on the right. Smal l air-fluid levels are seen in the right side of the sphenoid sinus. Visualized paranasal sinuses oth erwise are clear. The maxillary sinuses are not visualized. Mastoid air cells: Clear. IMPRESSION: Negative unenhanced CT scan of the brain. Mild paranasal sinus disease as described. Very small air-fluid levels in the sphenoid sinuses are vi sualized. I cannot exclude minimal acute sinusitis. This document is electronically signed by Darvin Jefferson MD., February 15 2019 04:19:06 PM ET
[2019-02-15] MEDS ORDERED: MACROBID PO ONE (17:08)
[2019-02-15] MEDS ORDERED: PEPCID IV ONE ×2 (17:23→17:25)
[2019-02-15] MEDS ORDERED: MAG-OX PO STA (17:36)
--- NOTE | 2019-02-15 17:59 | XRay Report ---
PROCEDURE: XR CHEST 1V AP TECHNIQUE: Chest single AP HISTORY: chest pain COMPARISONS: FINDINGS: Cardiac and mediastinal contours are unremarkable. No pulmonary infiltrate identified. No pleural flu id collection seen. Pulmonary vasculature is unremarkable. IMPRESSION: Negative single view chest. This document is electronically signed by Eric Wei MD., February 15 2019 05:57:17 PM ET
[2019-02-15] MEDS ORDERED: D5/0.45NS 1,000 ML IV SCH (18:00)
[2019-02-15 18:06] LABS: BUN/Creatinine Ratio 13; Blood Urea Nitrogen 8 mg/dL (7-17); Hemolysis Index 9
[2019-02-15] MEDS ORDERED: K-DUR PO ONE (18:51)
[2019-02-15] MEDS ORDERED: ATIVAN IM PRN (18:53)
[2019-02-15] MEDS: ANTIBIOTIC OINT TP SCH (22:39)
[2019-02-15] MEDS ORDERED: ROCEPHIN/NS 1 GM/50 ML 1 GM/50 ML BAG IV ONE (23:56)
[2019-02-16] MEDS ORDERED: ZOFRAN IV ONE (02:09)
--- NOTE | 2019-02-16 03:36 | Cat Scan Report ---
PROCEDURE: CT ABDOMEN PELVIS W CON TECHNIQUE: Computerized axial tomography of the abdomen and pelvis was performed after the IV inject ion of iodinated nonionic contrast. CT DOSE LENGTH PRODUCT: mGycm HISTORY: upper abd pain n,v x2 days COMPARISONS: None . FINDINGS: Visualized lower thorax: No significant abnormality. Liver: The liver is enlarged and fatty. There is no discrete mass.. Spleen: Normal size and attenuation. Gallbladder and biliary system: Normal. Pancreas: Normal. Adrenals: Normal. Kidneys: Normal. GI tract: There is no bowel obstruction, colitis or enteritis. The appendix is normal. . Lymph nodes and mesentery: Normal. Vasculature: Normal.. Bladder: Normal. Reproductive organs: Uterus is unremarkable. There is a 4 cm cyst in the left ovary.. Peritoneum: There is no ascites or free air, abscess or adenopathy.. Musculoskeletal structures: No significant abnormality. IMPRESSION: The liver is enlarged and fatty. There is no discrete mass. There is no bowel obstruction, colitis or enteritis. The appendix is normal. Uterus is unremarkable. There is a 4 cm cyst in the left ovary. There is no ascites or free air, abscess or adenopathy. This document is electronically signed by Negro Presley MD., February 16 2019 03:34:17 AM ET
[2019-02-16] MEDS: D5/0.45NS 1,000 ML IV SCH ×2 (04:17→10:16)
[2019-02-16] MEDS: MACROBID PO SCH ×3 (06:35→22:15)
[2019-02-16] MEDS: K-DUR PO SCH ×3 (06:39→22:15)
[2019-02-16] MEDS: ATIVAN IV PRN ×2 (09:50→14:45)
[2019-02-16] MEDS: ANTIBIOTIC OINT TP SCH ×2 (09:52→22:15)
[2019-02-16] MEDS ORDERED: POTASSIUM CHLORIDE FEEDTUBE NR (10:00)
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
[2019-02-16] MEDS ORDERED: REMERON PO SCH (22:00)
[2019-02-17] MEDS: MACROBID PO SCH (10:00)
[2019-02-17] MEDS: ANTIBIOTIC OINT TP SCH (10:00)
[2019-02-17] MEDS: K-DUR PO SCH (10:00)
[2019-02-17] MEDS ORDERED: IBUPROFEN PO ONE (10:58)
--- NOTE | 2019-02-17 13:36 | Progress Note ---
Subjective - Reason for Consult Consult date: 02/17/19 Reason for consult: Psychiatric Follow-up Evaluation - Chief Complaint Chief complaint: "I feel fine." Patient is a 23 y.o. AA female who presented to the ER for seizure activity and self injury behavior. Today the patient is calm during the assessment. She stated that she has a drinking (etoh) issues that stem almost 10 yrs. She stated that she only want to "regulate" her alcohol consumption (etoh) at this time. She stated, " I feel fine. I want to go home." Patient denies withdrawal symptoms and cravings. She states, " I live with my boyfriend and his family." She reports appropriate sleep and appetite. She denies SI/HI's, A/VH's, and delusions. Mental Status Exam - Vital signs Last Vital Signs Temp 99.8 F H 02/17/19 08:00 Pulse 77 02/17/19 08:00 Resp 18 02/17/19 11:05 BP 124/93 02/17/19 08:00 Pulse Ox 99 02/17/19 08:00 - Exam Narrative exam: Mental Status Exam Appearance: calm, cooperative Behavior: regular eye contact Speech: regular rate and tone Mood:: "I feel fine " Affect: flat Thought Process: organized Thought Content: denies SI/HI's, AVH's, and delusions Motor Activity: ambulatory Cognition: A/O x 3 Insight: variable to fair Judgment: variable Assessment and Plan Impression: MDD. Alcohol Use DO. Hx of self injury. Today the patient is calm and cooperative during the assessment. Mild to moderate tremors noted (etoh). She denies SI/HI's, A/VH's, delusions, and cravings. Provider attempted to reach boyfriend at 4:30 pm. No answer. voicemail. Psychiatrist spoke with boyfriend on 02/16/19 at bedside. At the time of discharge patient is in no imminent danger to self/others. Discussed medications/coping skills/treatment modalities for alcohol abuse. Patient verbalizes understanding. Informed in case of a psychiatric emergency patient is to call 911, report to ER or call the crisis line. DDx: R/O Bipolar DO, Personality DO Recommendation/Plan: 1. Will rescind 1013. Patient will discharge to boyfriend's home. 2. Attempted to gain collateral information. spoke with Boyfriend Wally Dennis, on 02/16/19. 3. Continue Remeron 15 mg PO HS for depression. Discussed possible suicidality/medication induced j carlos with the patient reference Remeron. 4. Patient encouraged to abstain from recreational alcohol/drug use. Disposition: Will rescind 1013. Patient encouraged to follow-up with alcohol rehabilitation on an outpatient basis. Staffed with Dr. Leeanne Madrid.
[2019-02-17 14:38] VITALS: BP 124/89
== END 2019-02-17 18:45 | disposition home or self-care (01) ==
LOC: EEVIPCON 14:02 → ED 14:02
DX: E87.6 Hypokalemia (principal); F10.239 Alcohol dependence with withdrawal, unspecified; G40.909 Epilepsy, unspecified, not intractable, without status epilepticus; R11.2 Nausea with vomiting, unspecified; E83.42 Hypomagnesemia; D69.6 Thrombocytopenia, unspecified; N39.0 Urinary tract infection, site not specified; F17.200 Nicotine dependence, unspecified, uncomplicated; J45.909 Unspecified asthma, uncomplicated; Z91.013 Allergy to seafood
CPT/HCPCS: 36415; 70450; 71045; 74177; 80048; 80053; 80307; 81001; 82140; 82550; 82962; 83690; 83735; 84702; 85027; 85610; 87076; 87086; 87186; 93005; 93010; 96365; 96366; 96367; 96375; 96376; 99291; G0480; J0696; J2060; J2405; J3475; J7030; Q9967; 80320

== ENCOUNTER 2019-03-14 21:29 | Emergency (ER) | payer OTHER ==
[2019-03-14 22:29] VITALS: BP 142/102
--- NOTE | 2019-03-15 02:16 | Emergency Department Report ---
HPI - General Chief Complaint: Extremity Injury, Upper Time Seen by Provider: 03/15/19 02:00 - [facility] HPI: Room 18 The patient is 23-year-old female presents with a chief complaint right-sided tingling and bruising. The patient states for 1.5 years she's had intermittent tingling in her right arm and right leg. Patient states she's been ignoring it. The patient also states she's noticed bruising to bilateral upper extremities approximately 4 days ago. Patient denies history of trauma. Patient admits to daily alcohol consumption and use of multiple drugs including cocaine, MDMA, LSD and mushrooms. Location: [See above] Duration: [See above] Quality: [See above] Severity: [See above] Modifying factors: [see above] Context: [see above] Mode of transportation: [not driving] ED Past Medical Hx - Past Medical History Previous Medical History?: Yes Hx Seizures: Yes Hx Psychiatric Treatment: Yes (for depression) Hx Asthma: Yes - Surgical History Past Surgical History?: No - Family History Family history: no significant - Social History Smoking Status: Never Smoker Substance Use Type: Alcohol (1.5 pints daily), Cocaine, Marijuana, Other (LSD, mushrooms, MDMA) - Medications Home Medications: Home Medications Medication Instructions Recorded Confirmed Last Taken Type No Known Home Medications [No 02/15/19 02/15/19 Unknown History Reported Home Medications] ED Review of Systems ROS: Stated complaint: HEADACHE Other details as noted in HPI Constitutional: no symptoms reported Eyes: denies: eye pain ENT: denies: throat pain Respiratory: no symptoms reported Cardiovascular: denies: chest pain Endocrine: no symptoms reported Gastrointestinal: denies: abdominal pain Genitourinary: denies: dysuria Musculoskeletal: denies: back pain Neurological: paresthesias. denies: headache Hematological/Lymphatic: easy bruising Physical Exam - Physical Exam Vital Signs: Vital Signs 03/14/19 21:56 Temperature 98.0 F Pulse Rate 114 H Respiratory 18 Rate Blood Pressure 142/102 O2 Sat by Pulse 97 Oximetry Physical Exam: GENERAL: The patient is well-developed well-nourished female lying on stretcher not appearing to be in acute distress. [] HEENT: Normocephalic. Atraumatic. Extraocular motions are intact. Patient has moist mucous membranes. NECK: Supple. Trachea midline CHEST/LUNGS: Clear to auscultation. There is no respiratory distress noted. HEART/CARDIOVASCULAR: Regular. There is no tachycardia. There is no gallop rub or murmur. ABDOMEN: Abdomen is soft, nontender. Patient has normal bowel sounds. There is no abdominal distention. SKIN: There is no rash. There is no edema. There is no diaphoresis. Linear region of ecchymosis to the anterior aspect of bilateral biceps NEURO: The patient is awake, alert, and oriented. The patient is cooperative. The patient has no focal neurologic deficits. The patient has normal speech and gait. Cranial nerves II through XII grossly intact, no drift. Patient able to hold either leg at 30 angle for 5 seconds, MUSCULOSKELETAL: There is no evidence of acute injury. ED Course Vital Signs 03/14/19 21:56 Temperature 98.0 F Pulse Rate 114 H Respiratory 18 Rate Blood Pressure 142/102 O2 Sat by Pulse 97 Oximetry ED Medical Decision Making - Differential Diagnosis alcohol intoxication, multiple sclerosis, secondary gain Critical care attestation.: If time is entered above; I have spent that time in minutes in the direct care of this critically ill patient, excluding procedure time. ED Disposition Clinical Impression: Right sided numbness Disposition: Z-07 ELOPED Is pt being admited?: No Does the pt Need Aspirin: No Condition: Undetermined Referrals: CAROLINA MONDRAGON MD [Primary Care Provider] - 3-5 Days Time of Disposition: 02:26 (informed by nursing that the patient has eloped)
== END 2019-03-15 02:36 | disposition left against medical advice (07) ==
LOC: ED 21:29
DX: R20.0 Anesthesia of skin (principal); J45.909 Unspecified asthma, uncomplicated; F32.9 Major depressive disorder, single episode, unspecified; F14.10 Cocaine abuse, uncomplicated; F12.10 Cannabis abuse, uncomplicated; Z91.018 Allergy to other foods; Z91.013 Allergy to seafood
CPT/HCPCS: 99281

== ENCOUNTER 2019-04-05 23:49 | Emergency (ER) | payer SELFPAY ==
[2019-04-05 23:57] VITALS: BP 139/88
[2019-04-06 00:18] LABS: Hemoglobin 12.9 gm/dl (10.1-14.3); Mean Corpuscular HGB Conc 34 % (30-34); Mean Corpuscular Volume 92 fl (79-97); Platelet Count 122 K/mm3 (140-440); Red Blood Count 4.12 M/mm3 (3.65-5.03); Red Cell Distribution Width 16.1 % (13.2-15.2)
[2019-04-06 00:35] LABS: BUN/Creatinine Ratio 15; Blood Urea Nitrogen 9 mg/dL (7-17); Calcium 9.4 mg/dL (8.4-10.2); Hemolysis Index 5
== END 2019-04-06 01:50 | disposition left against medical advice (07) ==
LOC: ED 23:49
DX: R56.9 Unspecified convulsions (principal); Z53.21 Procedure and treatment not carried out due to patient leaving prior to being seen by health care provider
CPT/HCPCS: 36415; 80048; 85027

== ENCOUNTER 2019-04-23 04:33 | Inpatient (IN) | payer OTHER ==
[2019-04-23 05:17] LABS: Basophils % (Auto) 0.5 % (0.0-1.8); Eosinophils # (Auto) 0.1 K/mm3 (0.0-0.4); Hematocrit 41.4 % (30.3-42.9); Hemoglobin 13.9 gm/dl (10.1-14.3); Lymphocytes # (Auto) 1.4 K/mm3 (1.2-5.4); Lymphocytes % (Auto) 19.5 % (13.4-35.0); Mean Corpuscular HGB Conc 34 % (30-34); Mean Corpuscular Volume 92 fl (79-97); Monocytes # (Auto) 0.6 K/mm3 (0.0-0.8); Monocytes % (Auto) 8.5 % (0.0-7.3); Red Blood Count 4.52 M/mm3 (3.65-5.03); Red Cell Distribution Width 15.8 % (13.2-15.2)
[2019-04-23] MEDS ORDERED: ZOFRAN ODT PO ONE (05:32)
[2019-04-23] MEDS ORDERED: ZOFRAN ONE (05:36)
[2019-04-23] MEDS ORDERED: ZOFRAN IV ONE (05:38)
[2019-04-23 05:54] LABS: Platelet Count 115 K/mm3 (140-440)
--- NOTE | 2019-04-23 06:19 | Emergency Department Report ---
ED Alcohol HPI - General Chief Complaint: Alcohol Stated Complaint: NAUSEA & VOMITING Time Seen by Provider: 04/23/19 06:07 Source: patient, EMS Mode of arrival: Wheelchair Limitations: No Limitations - History of Present Illness Initial Comments: Patient is a 23-year-old female that presents emergency room for upper abdominal pain and nausea and vomiting. Patient states her symptoms started approximately 6 hours ago. Patient states that the pain is worsening. Patient states she drank a half a bottle of vodka and became acutely ill. Patient denies blood in her vomitus. Patient denies diarrhea. Patient states she has a history of pancreatitis secondary to drinking. Patient states the pain is 10. Patient states is better rest. Patient states it's worse with vomiting and movement. Patient states she can't sit still she is in so much pain. 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 denies: syncope, seizure, diaphoresis, tremors, hematemesis, melena, depression, suicidality Treatments Prior to Arrival: none - Related Data Home Medications Medication Instructions Recorded Confirmed Last Taken No Known Home Medications [No 02/15/19 02/15/19 Unknown Reported Home Medications] Allergies Allergy/AdvReac Type Severity Reaction Status Date / Time apple Allergy Itching Verified 11/16/18 14:29 Fish Containing Products Allergy Itching Verified 03/12/19 18:14 ED Review of Systems ROS: Stated complaint: NAUSEA & VOMITING Other details as noted in HPI Constitutional: denies: chills, fever Eyes: denies: eye pain, eye discharge, vision change ENT: denies: ear pain, throat pain Respiratory: denies: cough, shortness of breath, wheezing Cardiovascular: denies: chest pain, palpitations Endocrine: no symptoms reported Gastrointestinal: abdominal pain, nausea, vomiting. denies: diarrhea, constipation, hematemesis, melena, hematochezia Genitourinary: denies: urgency, dysuria, discharge Musculoskeletal: denies: back pain, joint swelling, arthralgia Skin: denies: rash, lesions Neurological: denies: headache, weakness, paresthesias Psychiatric: denies: anxiety, depression Hematological/Lymphatic: denies: easy bleeding, easy bruising ED Past Medical Hx - Past Medical History Previous Medical History?: Yes Hx Congestive Heart Failure: No Hx Diabetes: No Hx Seizures: Yes Hx Psychiatric Treatment: Yes (for depression, SI) Hx Asthma: Yes Hx COPD: No Additional medical history: Alcoholic pancreatitis - Surgical History Past Surgical History?: Yes Additional Surgical History: foot - Family History Family history: no significant - Social History Smoking Status: Current Every Day Smoker Substance Use Type: Alcohol - Medications Home Medications: Home Medications Medication Instructions Recorded Confirmed Last Taken Type No Known Home Medications [No 02/15/19 02/15/19 Unknown History Reported Home Medications] ED Physical Exam - General Limitations: No Limitations General appearance: alert, in no apparent distress - Head Head exam: Present: atraumatic, normocephalic - Eye Eye exam: Present: normal appearance - ENT ENT exam: Present: mucous membranes moist - Neck Neck exam: Present: normal inspection - Respiratory Respiratory exam: Present: normal lung sounds bilaterally. Absent: respiratory distress - Cardiovascular Cardiovascular Exam: Present: regular rate, normal rhythm. Absent: systolic murmur, diastolic murmur, rubs, gallop - GI/Abdominal GI/Abdominal exam: Present: soft, tenderness (left upper quadrant and epigastric tenderness to palpation), normal bowel sounds - Extremities Exam Extremities exam: Present: normal inspection - Back Exam Back exam: Present: normal inspection - Neurological Exam Neurological exam: Present: alert, oriented X3 - Psychiatric Psychiatric exam: Present: normal affect, normal mood - Skin Skin exam: Present: warm, dry, intact, normal color. Absent: rash ED Course Vital Signs 04/23/19 04:50 Temperature 98.4 F Pulse Rate 116 H Respiratory 18 Rate Blood Pressure 139/96 [Left] O2 Sat by Pulse 99 Oximetry - Reevaluation(s) Reevaluation #1: A she states pain is better. Discussed all results with patient. Patient will be admitted to the hospitalist service. Patient agrees to plan of care. 04/23/19 07:57 - Consultations Consultation #1: Hospitalist consulted for admission. Hospitalist to admit patient. Hospitalist to assume care patient. Bridging orders were placed 04/23/19 07:50 ED Medical Decision Making - Lab Data Result diagrams: 04/23/19 04:55 04/23/19 06:04 - Radiology Data Radiology results: report reviewed CT done and is consistent with acute pancreatitis. Full report reviewed. - Medical Decision Making Patient is a 23-year-old female that presents emergency room for nausea vomiting and abdominal pain. Patient's symptoms are secondary to acute pancreatitis. Patient is a daily drinker and has had pancreatitis in the past. Patient admitted to the hospitalist service. Pain is better with minimal efficacious. Nausea improved with antibiotics. Patient's labs unremarkable except for elevated lipase. Patient admitted to the hospitalist service. - Differential Diagnosis nausea vomiting abdominal pain pancreatitis Critical Care Time: Yes Critical care attestation.: If time is entered above; I have spent that time in minutes in the direct care of this critically ill patient, excluding procedure time. Critical Care Time: 35 MINUTES ED Disposition Clinical Impression: Pancreatitis, alcoholic, acute Qualifiers: Acute pancreatitis complication: no infection or necrosis Qualified Code(s): K85.20 - Alcohol induced acute pancreatitis without necrosis or infection Abdominal pain Qualifiers: Abdominal location: upper abdomen, unspecified Qualified Code(s): R10.10 - Upper abdominal pain, unspecified Nausea & vomiting Qualifiers: Vomiting type: unspecified Vomiting Intractability: intractable Qualified Code(s): R11.2 - Nausea with vomiting, unspecified Disposition: DC-09 OP ADMIT IP TO THIS HOSP Is pt being admited?: Yes Does the pt Need Aspirin: No Condition: Critical Time of Disposition: 07:59
[2019-04-23] MEDS ORDERED: DILAUDID IV ONE ×2 (06:22→23:16)
[2019-04-23] MEDS ORDERED: ATIVAN IV ONE (06:43)
[2019-04-23] MEDS ORDERED: ATIVAN ONE (06:47)
[2019-04-23 06:51] LABS: BUN/Creatinine Ratio 9; Blood Urea Nitrogen 7 mg/dL (7-17); Calcium 9.9 mg/dL (8.4-10.2); Hemolysis Index 5
[2019-04-23 06:53] LABS: Albumin 4.6 g/dL (3.9-5); Bilirubin,Direct 0.2 mg/dL (0-0.2)
--- NOTE | 2019-04-23 07:52 | Cat Scan Report ---
PROCEDURE: CT ABDOMEN PELVIS WO CON TECHNIQUE: Noncontrast CT through the abdomen and pelvis HISTORY: abd pain. COMPARISONS: 02/16/2019 FINDINGS: Imaged intrathoracic contents are unremarkable. Kidneys are normal in size, axis and position. No hydronephrosis or nephrolithiasis. The ureters are normal in course and caliber. No stones are seen within the urinary bladder. Anteverted uterus. Multi ple pelvic phleboliths. Hepatic steatosis. The gallbladder, spleen and adrenal glands are unremarkable. Enlarged and edematou s pancreas with surrounding stranding. No focal fluid collection identified to suggest abscess. There is fluid in the colon. Predominantly fluid-filled prominent cecum appears irregular due to inte rspersed foci of stool with fluid. The appendix is normal in caliber and fluid-filled. No intra-abdom inal free air/fluid or lymphadenopathy. Aorta is normal in course and caliber. Superficial soft tissues are unremarkable. No acute or aggressive appearing skeletal findings. IMPRESSION: Findings are compatible with acute pancreatitis. No focal fluid collection identified to suggest absc ess formation. Hepatic steatosis. Fluid throughout much of the colon may be infectious or inflammatory in etiology. This document is electronically signed by Bill Almonte MD., April 23 2019 07:50:10 AM ET
--- NOTE | 2019-04-23 08:22 | History and Physical Report ---
History of Present Illness Date of examination: 04/23/19 Chief complaint: Abdominal pains History of present illness: Patient is a 23 yo woman with a history of alcohol abuse, tobacco dependency, asthma and bipolar disorder who presents to [facility] ED with epigastric severe constant sharp radiating to the back abdominal pains associated with n/v without aggravating or relieving factors. She denies bloody vomitus. She admits to drinking alcohol 4 hours prior to coming to the ED. Serum alcohol level was 0.09 (normal is less than 0.07). PMH: as hpi PSH: Foot surgery to remove object SH: 1 ppd tobacco, fifth vodka daily, denies drug abuse FH: hypertension ROS: Constitutional: denies: fever ENT: denies: throat or neck pain Respiratory: denies: cough, shortness of breath Cardiovascular: denies: chest pain Endocrine: denies unexplained weight loss or gain Gastrointestinal: + abdominal pain, nausea Genitourinary: denies: dysuria Rectal: denies no incontinence, no bleeding, no itching, no discharge Musculoskeletal: denies swelling, myaglia, muscle weakness Skin: denies: rash Neurological: denies: headache Hematological/Lymphatic: denies: easy bleeding or easy bruising Allergic/Immunologic: no urticaria, no allergic rhinitis, no anaphylaxis Psych: denies sadness or hopelessness, SI/HI Medications and Allergies Allergies Allergy/AdvReac Type Severity Reaction Status Date / Time apple Allergy Itching Verified 11/16/18 14:29 Fish Containing Products Allergy Itching Verified 03/12/19 18:14 Home Medications Medication Instructions Recorded Confirmed Last Taken Type No Known Home Medications [No 02/15/19 02/15/19 Unknown History Reported Home Medications] Exam - Physical Exam Narrative exam: Gen: bmi 19.7, NAD, Awake, Alert, Orientated HEENT: NCAT, EOMI, PERRL, OP Clear Neck: supple, no adenopathy, no thyromegaly, no JVD CVS/Heart: RRR, normal S1S2, pulses present bilaterally Chest/Lungs: CTA B, Symmetrical chest expansion, good air entry bilaterally GI/Abdomen: soft, epigastric abd pains, good bowel sounds, mild guarding, no rebound /Bladder: no suprapubic tenderness, no CVA or paraspinal tenderness Extermity/Skin: no c/c/e, no obvious rash MSK: FROM x 4 Neuro: CN 2-12 grossly intact, no new focal deficits Psych: calm - Constitutional Vitals: Temp Pulse Resp BP Pulse Ox 98.4 F 116 H 18 139/96 99 04/23/19 04:50 04/23/19 04:50 04/23/19 04:50 04/23/19 04:50 04/23/19 04:50 Results - Labs CBC & Chem 7: 04/23/19 04:55 04/23/19 06:04 Labs: Abnormal lab results 04/23/19 04/23/19 04/23/19 Range/Units 04:55 06:04 06:04 RDW 15.8 H (13.2-15.2) % Plt Count 115 L (140-440) K/mm3 [place] % (Auto) 8.5 H (0.0-7.3) % Seg Neutrophils % 70.5 H (40.0-70.0) % Carbon Dioxide (22-30) mmol/L Glucose (65-100) mg/dL AST (5-40) units/L ALT (7-56) units/L Lipase (13-60) units/L Salicylates < 0.3 L (2.8-20.0) mg/dL Acetaminophen < 5.0 L (10.0-30.0) ug/mL Plasma/Serum Alcohol (0-0.07) % 04/23/19 04/23/19 04/23/19 Range/Units 06:04 06:04 06:04 RDW (13.2-15.2) % Plt Count (140-440) K/mm3 [place] % (Auto) (0.0-7.3) % Seg Neutrophils % (40.0-70.0) % Carbon Dioxide 20 L (22-30) mmol/L Glucose 119 H (65-100) mg/dL AST (5-40) units/L ALT (7-56) units/L Lipase 1933 H (13-60) units/L Salicylates (2.8-20.0) mg/dL Acetaminophen (10.0-30.0) ug/mL Plasma/Serum Alcohol 0.09 H (0-0.07) % 04/23/19 Range/Units 06:04 RDW (13.2-15.2) % Plt Count (140-440) K/mm3 [place] % (Auto) (0.0-7.3) % Seg Neutrophils % (40.0-70.0) % Carbon Dioxide (22-30) mmol/L Glucose (65-100) mg/dL AST 146 H (5-40) units/L ALT 65 H (7-56) units/L Lipase (13-60) units/L Salicylates (2.8-20.0) mg/dL Acetaminophen (10.0-30.0) ug/mL Plasma/Serum Alcohol (0-0.07) % Assessment and Plan Patient is a 23 yo woman with a history of alcohol abuse, tobacco dependency, asthma and bipolar disorder who presents to [facility] ED with epigastric severe constant sharp radiating to the back abdominal pains associated with n/v without aggravating or relieving factors. She denies bloody vomitus. She admits to drinking alcohol 4 hours prior to coming to the ED. Serum alcohol level was 0.09 (normal is less than 0.07) and lipase 1933. -Acute alcoholic pancreatitis: treat with ivf, iv narcotics, antiemetic IV and bowel rest. -Alcohol abuse: watch for withdrawal, treat with CIWA protocol -Tobacco dependency: executive assistant to general counsel on stopping, offered nicotine patch -Bipolar disorder per past records: continue present management. -Transaminitis due to ETOH, mild: monitor cmp closely -Thrombocytopenia due to ETOH: monitor cbc closely DVT prophylaxis: scd only due to low plt
[2019-04-23 08:52] LABS: Amphetamine Screen,Urine PRESUMPTIVE NEGATIVE; Benzodiazepines Screen,Urine PRESUMPTIVE NEGATIVE; Cannabinoid Screen,Urine PRESUMPTIVE NEGATIVE; Cocaine Screen,Urine PRESUMPTIVE NEGATIVE; Methadone Screen,Urine PRESUMPTIVE NEGATIVE; Opiate Screen,Urine PRESUMPTIVE NEGATIVE
[2019-04-23 08:57] LABS: Bilirubin,Urine Small (Negative); Color,Urine Straw (Yellow)
[2019-04-23 08:58] LABS: Urobilinogen,Urine < 2.0 mg/dL (<2.0)
[2019-04-23 08:59] LABS: Ictotest,Urine Negative (Negative); RBC,Urine < 1.0 /HPF (0.0-6.0)
[2019-04-23] MEDS ORDERED: REGLAN IV PRN (11:51)
[2019-04-23] MEDS ORDERED: ATIVAN IV PRN ×2 (11:53)
[2019-04-23] MEDS: MORPHINE IV PRN ×2 (12:29→19:44)
[2019-04-23] MEDS: PROTONIX IV SCH (12:29)
[2019-04-23] MEDS: ZOFRAN IV PRN ×2 (13:06→21:07)
[2019-04-23] MEDS: ATIVAN IV PRN ×2 (13:06→13:54)
[2019-04-23] MEDS: HABITROL TD SCH (13:53)
[2019-04-23] MEDS: NACL 0.9% 1000 ML 1,000 ML IV SCH ×2 (13:53→23:57)
[2019-04-23] MEDS: VITAMIN B-1 100 MG in NACL 0.9% 50 ML IV SCH (13:54)
[2019-04-23] MEDS: ROCEPHIN/NS 1 GM/50 ML 1 GM/50 ML BAG IV SCH (15:23)
[2019-04-24] MEDS: ZOFRAN IV PRN ×4 (02:30→20:06)
[2019-04-24] MEDS: MORPHINE IV PRN ×3 (04:25→11:17)
[2019-04-24 06:01] LABS: Hematocrit 36.7 % (30.3-42.9); Hemoglobin 12.1 gm/dl (10.1-14.3); Mean Corpuscular HGB Conc 33 % (30-34); Mean Corpuscular Volume 92 fl (79-97); Red Blood Count 3.98 M/mm3 (3.65-5.03); Red Cell Distribution Width 15.8 % (13.2-15.2)
[2019-04-24 06:10] LABS: Platelet Count 57 K/mm3 (140-440)
[2019-04-24 06:45] LABS: Alanine Aminotransferase 39 units/L (7-56); Albumin 4.1 g/dL (3.9-5); BUN/Creatinine Ratio 9; Blood Urea Nitrogen 6 mg/dL (7-17); Calcium 8.7 mg/dL (8.4-10.2); Hemolysis Index 2
[2019-04-24] MEDS: ROCEPHIN/NS 1 GM/50 ML 1 GM/50 ML BAG IV SCH (09:38)
[2019-04-24] MEDS: ATIVAN IV PRN (09:40)
[2019-04-24] MEDS: PROTONIX IV SCH (09:44)
[2019-04-24] MEDS: HABITROL TD SCH (09:44)
[2019-04-24] MEDS: VITAMIN B-1 100 MG in NACL 0.9% 50 ML IV SCH (10:37)
[2019-04-24] MEDS ORDERED: K-DUR PO ONE (13:28)
--- NOTE | 2019-04-24 13:32 | Progress Note ---
Assessment and Plan Assessment and plan: Patient is a 23 yo woman with a history of alcohol abuse, tobacco dependency, asthma and bipolar disorder who presents to [facility] ED with epigastric severe constant sharp radiating to the back abdominal pains associated with n/v without aggravating or relieving factors. She denies bloody vomitus. She admits to drinking alcohol 4 hours prior to coming to the ED. Serum alcohol level was 0.09 (normal is less than 0.07) and lipase 1933. -Acute alcoholic pancreatitis: treat with ivf, iv narcotics, antiemetic IV, advance diet and changed iv narcotics per patient wishes -Alcohol abuse: watch for withdrawal, treat with CIWA protocol -Tobacco dependency: admitting counselor on stopping, offered nicotine patch -Bipolar disorder per past records: continue present management. -Transaminitis due to ETOH, mild: monitor cmp closely -Thrombocytopenia due to ETOH: monitor cbc closely DVT prophylaxis: scd only due to low plt History Interval history: Patient was seen and examined. Follow-up on current diagnosis Pancreatitis. No overnight events reported to me. Patient denies any chest pain, shortness breath, nausea/vomiting or severe headaches. Imaging, nursing note, chart, labs and old chart reviewed. Discussed with patient. Hospitalist Physical - Physical exam Narrative exam: Gen: bmi 19.7, NAD, Awake, Alert, Orientated HEENT: NCAT, EOMI, PERRL, OP Clear Neck: supple, no adenopathy, no thyromegaly, no JVD CVS/Heart: RRR, normal S1S2, pulses present bilaterally Chest/Lungs: CTA B, Symmetrical chest expansion, good air entry bilaterally GI/Abdomen: soft, epigastric abd pains, good bowel sounds, mild guarding, no rebound /Bladder: no suprapubic tenderness, no CVA or paraspinal tenderness Extermity/Skin: no c/c/e, no obvious rash MSK: FROM x 4 Neuro: CN 2-12 grossly intact, no new focal deficits Psych: calm - Constitutional Vitals: Temp Pulse Resp BP Pulse Ox 98.6 F 102 H 20 146/99 94 04/24/19 00:21 04/24/19 00:21 04/24/19 00:21 04/24/19 00:21 04/24/19 00:21 Results - Labs CBC & Chem 7: 04/24/19 05:30 04/24/19 05:30 Labs: Laboratory Last Values WBC 7.4 K/mm3 (4.5-11.0) 04/24/19 05:30 RBC 3.98 M/mm3 (3.65-5.03) 04/24/19 05:30 Hgb 12.1 gm/dl (10.1-14.3) 04/24/19 05:30 Hct 36.7 % (30.3-42.9) 04/24/19 05:30 MCV 92 fl (79-97) 04/24/19 05:30 MCH 31 pg (28-32) 04/24/19 05:30 MCHC 33 % (30-34) 04/24/19 05:30 RDW 15.8 % (13.2-15.2) H 04/24/19 05:30 Plt Count 57 K/mm3 (140-440) L 04/24/19 05:30 Lymph % (Auto) 19.5 % (13.4-35.0) 04/23/19 04:55 [place] % (Auto) 8.5 % (0.0-7.3) H 04/23/19 04:55 Eos % (Auto) 1.0 % (0.0-4.3) 04/23/19 04:55 Baso % (Auto) 0.5 % (0.0-1.8) 04/23/19 04:55 Lymph # 1.4 K/mm3 (1.2-5.4) 04/23/19 04:55 [place] # 0.6 K/mm3 (0.0-0.8) 04/23/19 04:55 Eos # 0.1 K/mm3 (0.0-0.4) 04/23/19 04:55 Baso # 0.0 K/mm3 (0.0-0.1) 04/23/19 04:55 Seg Neutrophils % 70.5 % (40.0-70.0) H 04/23/19 04:55 Seg Neutrophils # 5.0 K/mm3 (1.8-7.7) 04/23/19 04:55 Sodium 138 mmol/L (137-145) 04/24/19 05:30 Potassium 3.2 mmol/L (3.6-5.0) L 04/24/19 05:30 Chloride 96.9 mmol/L (98-107) L 04/24/19 05:30 Carbon Dioxide 24 mmol/L (22-30) 04/24/19 05:30 20 mmol/L 04/24/19 05:30 BUN 6 mg/dL (7-17) L 04/24/19 05:30 0.7 mg/dL (0.7-1.2) 04/24/19 05:30 Estimated GFR > 60 ml/min 04/24/19 05:30 9 % 04/24/19 05:30 Glucose 127 mg/dL (65-100) H 04/24/19 05:30 Calcium 8.7 mg/dL (8.4-10.2) 04/24/19 05:30 0.90 mg/dL (0.1-1.2) 04/24/19 05:30 0.2 mg/dL (0-0.2) 04/23/19 06:04 0.7 mg/dL 04/23/19 06:04 AST 50 units/L (5-40) H 04/24/19 05:30 ALT 39 units/L (7-56) 04/24/19 05:30 47 units/L (35-129) 04/24/19 05:30 7.4 g/dL (6.3-8.2) 04/24/19 05:30 4.1 g/dL (3.9-5) 04/24/19 05:30 1.2 % 04/24/19 05:30 1295 units/L (13-60) H 04/24/19 05:30 HCG, Qual Negative (Negative) 04/23/19 04:55 Straw (Yellow) 04/23/19 08:12 Clear (Clear) 04/23/19 08:12 5.0 (5.0-7.0) 04/23/19 08:12 Ur Specific [place] 1.035 (1.003-1.030) H 04/23/19 08:12 100 mg/dl mg/dL (Negative) 04/23/19 08:12 Negative mg/dL (Negative) 04/23/19 08:12 Negative mg/dL (Negative) 04/23/19 08:12 Negative (Negative) 04/23/19 08:12 Ur Reducing Substances Negative (Negative) 04/23/19 08:12 Small (Negative) 04/23/19 08:12 Negative (Negative) 04/23/19 08:12 < 2.0 mg/dL (<2.0) 04/23/19 08:12 Ur Leukocyte Esterase Negative (Negative) 04/23/19 08:12 80.0 /HPF (0.0-6.0) H 04/23/19 08:12 < 1.0 /HPF (0.0-6.0) 04/23/19 08:12 U Epithel Cells (Auto) 15.0 /HPF (0-13.0) H 04/23/19 08:12 Salicylates < 0.3 mg/dL (2.8-20.0) L 04/23/19 06:04 Presumptive negative 04/23/19 08:12 Presumptive negative 04/23/19 08:12 Acetaminophen < 5.0 ug/mL (10.0-30.0) L 04/23/19 06:04 Ur Barbiturates Screen Presumptive negative 04/23/19 08:12 Ur Phencyclidine Scrn Presumptive negative 04/23/19 08:12 Ur Amphetamines Screen Presumptive negative 04/23/19 08:12 U Benzodiazepines Scrn Presumptive negative 04/23/19 08:12 Presumptive negative 04/23/19 08:12 U Marijuana (THC) Screen Presumptive negative 04/23/19 08:12 Disclamer 04/23/19 08:12 Plasma/Serum Alcohol 0.09 % (0-0.07) H 04/23/19 06:04 Active Medications - Current Medications Current Medications: Generic Name Dose Route Start Last Admin Trade Name Freq PRN Reason Stop Dose Admin Sodium Chloride 1,000 mls @ 125 mls/hr 04/23/19 12:00 04/23/19 23:57 Nacl 0.9% 1000 Ml IV 125 mls/hr DIRECT DAMARIS Administration Thiamine HCl 100 mg/ Sodium 51 mls @ 100 mls/hr 04/23/19 14:00 04/24/19 10:37 Chloride IV 100 mls/hr QDAY DAMARIS Administration Ceftriaxone Sodium 1 gm in 50 mls @ 100 mls/hr 04/23/19 14:00 04/24/19 09:38 Rocephin/Ns 1 Gm/50 Ml IV 100 mls/hr Q24HR DAMARIS Administration Protocol Lorazepam 1 mg 04/23/19 11:53 04/24/19 09:40 Ativan IV 1 mg Q1H PRN Administration CIWA-Ar 8-15 Lorazepam 2 mg 04/23/19 11:53 04/23/19 15:05 Ativan IV 2 mg Q1H PRN Administration CIWA-Ar 16-25 Lorazepam 4 mg 04/23/19 11:53 Ativan IV Q15MIN PRN CIWA-Ar >25 Metoclopramide HCl 10 mg 04/23/19 11:51 Reglan IV Q8H PRN Nausea And Vomiting Morphine Sulfate 2 mg 04/23/19 23:17 04/24/19 11:17 Morphine IV 2 mg Q3H PRN Administration Pain , Severe (7-10) Nicotine 21 mg 04/23/19 14:00 04/24/19 09:44 Habitrol TD 21 mg QDAY DAMARIS Administration Ondansetron HCl 4 mg 04/23/19 11:51 04/24/19 11:12 Zofran IV 4 mg Q4H PRN Administration N/V unrelieved by Reglan Pantoprazole Sodium 40 mg 04/23/19 12:00 04/24/19 09:44 Protonix IV 40 mg QDAY DAMARIS Administration Potassium Chloride 40 meq 04/24/19 13:28 K-Dur PO 04/24/19 13:29 ONCE ONE
[2019-04-24] MEDS: DILAUDID IV PRN ×2 (14:32→20:07)
[2019-04-24] MEDS: NACL 0.9% 1000 ML 1,000 ML IV SCH ×2 (14:41→22:20)
[2019-04-25] MEDS: DILAUDID IV PRN ×4 (02:33→16:33)
[2019-04-25 05:56] LABS: Hematocrit 36.2 % (30.3-42.9); Hemoglobin 12.2 gm/dl (10.1-14.3); Mean Corpuscular HGB Conc 34 % (30-34); Mean Corpuscular Volume 92 fl (79-97); Red Blood Count 3.96 M/mm3 (3.65-5.03); Red Cell Distribution Width 15.9 % (13.2-15.2)
[2019-04-25 06:15] LABS: Alanine Aminotransferase 28 units/L (7-56); Albumin 4.1 g/dL (3.9-5); BUN/Creatinine Ratio 4; Blood Urea Nitrogen 2 mg/dL (7-17); Calcium 8.9 mg/dL (8.4-10.2); Hemolysis Index 4
[2019-04-25 07:05] LABS: Platelet Count 57 K/mm3 (140-440)
[2019-04-25] MEDS: NACL 0.9% 1000 ML 1,000 ML IV SCH (07:08)
--- NOTE | 2019-04-25 08:42 | Progress Note ---
Assessment and Plan Assessment and plan: Patient is a 23 yo woman with a history of alcohol abuse, tobacco dependency, asthma and bipolar disorder who presents to [facility] ED with epigastric severe constant sharp radiating to the back abdominal pains associated with n/v without aggravating or relieving factors. She denies bloody vomitus. She admits to drinking alcohol 4 hours prior to coming to the ED. Serum alcohol level was 0.09 (normal is less than 0.07) and lipase 1933. -Acute alcoholic pancreatitis: treat with ivf, iv narcotics, antiemetic IV, advance diet and changed iv narcotics per patient wishes -Alcohol abuse: watch for withdrawal, treat with CIWA protocol -Tobacco dependency: area counselor on stopping, offered nicotine patch -Bipolar disorder per past records: continue present management. -Transaminitis due to ETOH, mild: monitor cmp closely -Thrombocytopenia due to ETOH: monitor cbc closely DVT prophylaxis: scd only due to low plt Hypokalemia, replete, recheck in am advance diet GNR in uA ctx, await results for discharge ciwa score 1 History Interval history: Patient was seen and examined. Follow-up on current diagnosis Pancreatitis. No overnight events reported to me. Patient denies any chest pain, shortness breath, nausea/vomiting or severe headaches. Imaging, nursing note, chart, labs and old chart reviewed. Discussed with patient. Hospitalist Physical - Physical exam Narrative exam: Gen: bmi 19.7, NAD, Awake, Alert, Orientated HEENT: NCAT, EOMI, PERRL, OP Clear Neck: supple, no adenopathy, no thyromegaly, no JVD CVS/Heart: RRR, normal S1S2, pulses present bilaterally Chest/Lungs: CTA B, Symmetrical chest expansion, good air entry bilaterally GI/Abdomen: soft, epigastric abd tenderness, good bowel sounds, mild guarding, no rebound /Bladder: no suprapubic tenderness, no CVA or paraspinal tenderness Extermity/Skin: no c/c/e, no obvious rash MSK: FROM x 4 Neuro: CN 2-12 grossly intact, no new focal deficits Psych: calm - Constitutional Vitals: Temp Pulse Resp BP Pulse Ox 98.2 F 104 H 20 147/103 97 04/25/19 05:58 04/25/19 05:58 04/25/19 05:58 04/25/19 05:58 04/25/19 05:58 Results - Labs CBC & Chem 7: 04/25/19 05:08 04/25/19 05:08 Labs: Laboratory Last Values WBC 8.6 K/mm3 (4.5-11.0) 04/25/19 05:08 RBC 3.96 M/mm3 (3.65-5.03) 04/25/19 05:08 Hgb 12.2 gm/dl (10.1-14.3) 04/25/19 05:08 Hct 36.2 % (30.3-42.9) 04/25/19 05:08 MCV 92 fl (79-97) 04/25/19 05:08 MCH 31 pg (28-32) 04/25/19 05:08 MCHC 34 % (30-34) 04/25/19 05:08 RDW 15.9 % (13.2-15.2) H 04/25/19 05:08 Plt Count 57 K/mm3 (140-440) L 04/25/19 05:08 Lymph % (Auto) 19.5 % (13.4-35.0) 04/23/19 04:55 [place] % (Auto) 8.5 % (0.0-7.3) H 04/23/19 04:55 Eos % (Auto) 1.0 % (0.0-4.3) 04/23/19 04:55 Baso % (Auto) 0.5 % (0.0-1.8) 04/23/19 04:55 Lymph # 1.4 K/mm3 (1.2-5.4) 04/23/19 04:55 [place] # 0.6 K/mm3 (0.0-0.8) 04/23/19 04:55 Eos # 0.1 K/mm3 (0.0-0.4) 04/23/19 04:55 Baso # 0.0 K/mm3 (0.0-0.1) 04/23/19 04:55 Seg Neutrophils % 70.5 % (40.0-70.0) H 04/23/19 04:55 Seg Neutrophils # 5.0 K/mm3 (1.8-7.7) 04/23/19 04:55 Sodium 134 mmol/L (137-145) L 04/25/19 05:08 Potassium 3.5 mmol/L (3.6-5.0) L 04/25/19 05:08 Chloride 95.9 mmol/L (98-107) L 04/25/19 05:08 Carbon Dioxide 23 mmol/L (22-30) 04/25/19 05:08 19 mmol/L 04/25/19 05:08 BUN 2 mg/dL (7-17) L 04/25/19 05:08 0.5 mg/dL (0.7-1.2) L 04/25/19 05:08 Estimated GFR > 60 ml/min 04/25/19 05:08 4 % 04/25/19 05:08 Glucose 112 mg/dL (65-100) H 04/25/19 05:08 Calcium 8.9 mg/dL (8.4-10.2) 04/25/19 05:08 0.80 mg/dL (0.1-1.2) 04/25/19 05:08 0.2 mg/dL (0-0.2) 04/23/19 06:04 0.7 mg/dL 04/23/19 06:04 AST 27 units/L (5-40) 04/25/19 05:08 ALT 28 units/L (7-56) 04/25/19 05:08 50 units/L (35-129) 04/25/19 05:08 7.3 g/dL (6.3-8.2) 04/25/19 05:08 4.1 g/dL (3.9-5) 04/25/19 05:08 1.3 % 04/25/19 05:08 481 units/L (13-60) H 04/25/19 05:08 HCG, Qual Negative (Negative) 04/23/19 04:55 Straw (Yellow) 04/23/19 08:12 Clear (Clear) 04/23/19 08:12 5.0 (5.0-7.0) 04/23/19 08:12 Ur Specific [place] 1.035 (1.003-1.030) H 04/23/19 08:12 100 mg/dl mg/dL (Negative) 04/23/19 08:12 Negative mg/dL (Negative) 04/23/19 08:12 Negative mg/dL (Negative) 04/23/19 08:12 Negative (Negative) 04/23/19 08:12 Ur Reducing Substances Negative (Negative) 04/23/19 08:12 Small (Negative) 04/23/19 08:12 Negative (Negative) 04/23/19 08:12 < 2.0 mg/dL (<2.0) 04/23/19 08:12 Ur Leukocyte Esterase Negative (Negative) 04/23/19 08:12 80.0 /HPF (0.0-6.0) H 04/23/19 08:12 < 1.0 /HPF (0.0-6.0) 04/23/19 08:12 U Epithel Cells (Auto) 15.0 /HPF (0-13.0) H 04/23/19 08:12 Salicylates < 0.3 mg/dL (2.8-20.0) L 04/23/19 06:04 Presumptive negative 04/23/19 08:12 Presumptive negative 04/23/19 08:12 Acetaminophen < 5.0 ug/mL (10.0-30.0) L 04/23/19 06:04 Ur Barbiturates Screen Presumptive negative 04/23/19 08:12 Ur Phencyclidine Scrn Presumptive negative 04/23/19 08:12 Ur Amphetamines Screen Presumptive negative 04/23/19 08:12 U Benzodiazepines Scrn Presumptive negative 04/23/19 08:12 Presumptive negative 04/23/19 08:12 U Marijuana (THC) Screen Presumptive negative 04/23/19 08:12 Disclamer 04/23/19 08:12 Plasma/Serum Alcohol 0.09 % (0-0.07) H 04/23/19 06:04 Active Medications - Current Medications Current Medications: Generic Name Dose Route Start Last Admin Trade Name Freq PRN Reason Stop Dose Admin Hydromorphone HCl 1 mg 04/24/19 13:30 04/25/19 08:21 Dilaudid IV 1 mg Q4H PRN Administration Pain , Severe (7-10) Thiamine HCl 100 mg/ Sodium 51 mls @ 100 mls/hr 04/23/19 14:00 04/24/19 10:37 Chloride IV 100 mls/hr QDAY DAMARIS Administration Ceftriaxone Sodium 1 gm in 50 mls @ 100 mls/hr 04/23/19 14:00 04/24/19 09:38 Rocephin/Ns 1 Gm/50 Ml IV 100 mls/hr Q24HR DAMARIS Administration Protocol Sodium Chloride 1,000 mls @ 100 mls/hr 04/25/19 09:00 Nacl 0.9% 1000 Ml IV DIRECT DAMARIS Lorazepam 1 mg 04/23/19 11:53 04/24/19 09:40 Ativan IV 1 mg Q1H PRN Administration CIWA-Ar 8-15 Lorazepam 2 mg 04/23/19 11:53 04/23/19 15:05 Ativan IV 2 mg Q1H PRN Administration CIWA-Ar 16-25 Lorazepam 4 mg 04/23/19 11:53 Ativan IV Q15MIN PRN CIWA-Ar >25 Metoclopramide HCl 10 mg 04/23/19 11:51 Reglan IV Q8H PRN Nausea And Vomiting Nicotine 21 mg 04/23/19 14:00 04/24/19 09:44 Habitrol TD 21 mg QDAY DAMARIS Administration Ondansetron HCl 4 mg 04/23/19 11:51 04/24/19 20:06 Zofran IV 4 mg Q4H PRN Administration N/V unrelieved by Reglan Pantoprazole Sodium 40 mg 04/23/19 12:00 04/24/19 09:44 Protonix IV 40 mg QDAY DAMARIS Administration
[2019-04-25] MEDS ORDERED: NACL 0.9% 1000 ML 1,000 ML IV SCH (09:00)
[2019-04-25] MEDS: ROCEPHIN/NS 1 GM/50 ML 1 GM/50 ML BAG IV SCH (10:44)
[2019-04-25] MEDS: PROTONIX IV SCH (10:46)
[2019-04-25] MEDS: HABITROL TD SCH ×2 (10:47→10:51)
[2019-04-25] MEDS: VITAMIN B-1 100 MG in NACL 0.9% 50 ML IV SCH (12:17)
--- NOTE | 2019-04-25 12:58 | Progress Note ---
Assessment and Plan Assessment and plan: Patient is a 23 yo woman with a history of alcohol abuse, tobacco dependency, asthma and bipolar disorder who presents to [facility] ED with epigastric severe constant sharp radiating to the back abdominal pains associated with n/v without aggravating or relieving factors. She denies bloody vomitus. She admits to drinking alcohol 4 hours prior to coming to the ED. Serum alcohol level was 0.09 (normal is less than 0.07) and lipase 1933 to 481. -Acute alcoholic pancreatitis: treat with ivf, iv narcotics, antiemetic IV, advance diet and changed iv narcotics per patient wishes -Alcohol abuse: watch for withdrawal, treat with CIWA protocol -E. Coli UTI: home Levaquin -Tobacco dependency: summer camp counselor on stopping, offered nicotine patch -Bipolar disorder per past records: continue present management. -Hypokalemia, replete, recheck in am -Transaminitis due to ETOH, mild: monitor cmp closely -Thrombocytopenia due to ETOH: monitor cbc closely DVT prophylaxis: scd only due to low plt History Interval history: Patient was seen and examined. Follow-up on current diagnosis Pancreatitis. No overnight events reported to me. Patient denies any chest pain, shortness leona th, nausea/vomiting or severe headaches. Imaging, nursing note, chart, labs and old chart reviewed. Discussed with patient. Hospitalist Physical - Physical exam Narrative exam: Gen: bmi 19.7, NAD, Awake, Alert, Orientated HEENT: NCAT, EOMI, PERRL, OP Clear Neck: supple, no adenopathy, no thyromegaly, no JVD CVS/Heart: RRR, normal S1S2, pulses present bilaterally Chest/Lungs: CTA B, Symmetrical chest expansion, good air entry bilaterally GI/Abdomen: soft, epigastric abd tenderness, good bowel sounds, mild guarding, no rebound /Bladder: no suprapubic tenderness, no CVA or paraspinal tenderness Extermity/Skin: no c/c/e, no obvious rash MSK: FROM x 4 Neuro: CN 2-12 grossly intact, no new focal deficits Psych: calm - Constitutional Vitals: Temp Pulse Resp BP Pulse Ox 98.2 F 104 H 20 147/103 97 04/25/19 05:58 04/25/19 05:58 04/25/19 05:58 04/25/19 05:58 04/25/19 05:58 Results - Labs CBC & Chem 7: 04/25/19 05:08 04/25/19 05:08 Labs: Laboratory Last Values WBC 8.6 K/mm3 (4.5-11.0) 04/25/19 05:08 RBC 3.96 M/mm3 (3.65-5.03) 04/25/19 05:08 Hgb 12.2 gm/dl (10.1-14.3) 04/25/19 05:08 Hct 36.2 % (30.3-42.9) 04/25/19 05:08 MCV 92 fl (79-97) 04/25/19 05:08 MCH 31 pg (28-32) 04/25/19 05:08 MCHC 34 % (30-34) 04/25/19 05:08 RDW 15.9 % (13.2-15.2) H 04/25/19 05:08 Plt Count 57 K/mm3 (140-440) L 04/25/19 05:08 Lymph % (Auto) 19.5 % (13.4-35.0) 04/23/19 04:55 [place] % (Auto) 8.5 % (0.0-7.3) H 04/23/19 04:55 Eos % (Auto) 1.0 % (0.0-4.3) 04/23/19 04:55 Baso % (Auto) 0.5 % (0.0-1.8) 04/23/19 04:55 Lymph # 1.4 K/mm3 (1.2-5.4) 04/23/19 04:55 [place] # 0.6 K/mm3 (0.0-0.8) 04/23/19 04:55 Eos # 0.1 K/mm3 (0.0-0.4) 04/23/19 04:55 Baso # 0.0 K/mm3 (0.0-0.1) 04/23/19 04:55 Seg Neutrophils % 70.5 % (40.0-70.0) H 04/23/19 04:55 Seg Neutrophils # 5.0 K/mm3 (1.8-7.7) 04/23/19 04:55 Sodium 134 mmol/L (137-145) L 04/25/19 05:08 Potassium 3.5 mmol/L (3.6-5.0) L 04/25/19 05:08 Chloride 95.9 mmol/L (98-107) L 04/25/19 05:08 Carbon Dioxide 23 mmol/L (22-30) 04/25/19 05:08 19 mmol/L 04/25/19 05:08 BUN 2 mg/dL (7-17) L 04/25/19 05:08 0.5 mg/dL (0.7-1.2) L 04/25/19 05:08 Estimated GFR > 60 ml/min 04/25/19 05:08 4 % 04/25/19 05:08 Glucose 112 mg/dL (65-100) H 04/25/19 05:08 Calcium 8.9 mg/dL (8.4-10.2) 04/25/19 05:08 0.80 mg/dL (0.1-1.2) 04/25/19 05:08 0.2 mg/dL (0-0.2) 04/23/19 06:04 0.7 mg/dL 04/23/19 06:04 AST 27 units/L (5-40) 04/25/19 05:08 ALT 28 units/L (7-56) 04/25/19 05:08 50 units/L (35-129) 04/25/19 05:08 7.3 g/dL (6.3-8.2) 04/25/19 05:08 4.1 g/dL (3.9-5) 04/25/19 05:08 1.3 % 04/25/19 05:08 481 units/L (13-60) H 04/25/19 05:08 HCG, Qual Negative (Negative) 04/23/19 04:55 Straw (Yellow) 04/23/19 08:12 Clear (Clear) 04/23/19 08:12 5.0 (5.0-7.0) 04/23/19 08:12 Ur Specific [place] 1.035 (1.003-1.030) H 04/23/19 08:12 100 mg/dl mg/dL (Negative) 04/23/19 08:12 Negative mg/dL (Negative) 04/23/19 08:12 Negative mg/dL (Negative) 04/23/19 08:12 Negative (Negative) 04/23/19 08:12 Ur Reducing Substances Negative (Negative) 04/23/19 08:12 Small (Negative) 04/23/19 08:12 Negative (Negative) 04/23/19 08:12 < 2.0 mg/dL (<2.0) 04/23/19 08:12 Ur Leukocyte Esterase Negative (Negative) 04/23/19 08:12 80.0 /HPF (0.0-6.0) H 04/23/19 08:12 < 1.0 /HPF (0.0-6.0) 04/23/19 08:12 U Epithel Cells (Auto) 15.0 /HPF (0-13.0) H 04/23/19 08:12 Salicylates < 0.3 mg/dL (2.8-20.0) L 04/23/19 06:04 Presumptive negative 04/23/19 08:12 Presumptive negative 04/23/19 08:12 Acetaminophen < 5.0 ug/mL (10.0-30.0) L 04/23/19 06:04 Ur Barbiturates Screen Presumptive negative 04/23/19 08:12 Ur Phencyclidine Scrn Presumptive negative 04/23/19 08:12 Ur Amphetamines Screen Presumptive negative 04/23/19 08:12 U Benzodiazepines Scrn Presumptive negative 04/23/19 08:12 Presumptive negative 04/23/19 08:12 U Marijuana (THC) Screen Presumptive negative 04/23/19 08:12 Disclamer 04/23/19 08:12 Plasma/Serum Alcohol 0.09 % (0-0.07) H 04/23/19 06:04 Active Medications - Current Medications Current Medications: Generic Name Dose Route Start Last Admin Trade Name Freq PRN Reason Stop Dose Admin Hydromorphone HCl 1 mg 04/24/19 13:30 04/25/19 12:27 Dilaudid IV 1 mg Q4H PRN Administration Pain , Severe (7-10) Thiamine HCl 100 mg/ Sodium 51 mls @ 100 mls/hr 04/23/19 14:00 04/25/19 12:17 Chloride IV 100 mls/hr QDAY DAMARIS Administration Ceftriaxone Sodium 1 gm in 50 mls @ 100 mls/hr 04/23/19 14:00 04/25/19 10:44 Rocephin/Ns 1 Gm/50 Ml IV 100 mls/hr Q24HR DAMARIS Administration Protocol Sodium Chloride 1,000 mls @ 100 mls/hr 04/25/19 09:00 04/25/19 12:30 Nacl 0.9% 1000 Ml IV 100 mls/hr DIRECT DAMARIS Administration Lorazepam 1 mg 04/23/19 11:53 04/24/19 09:40 Ativan IV 1 mg Q1H PRN Administration CIWA-Ar 8-15 Lorazepam 2 mg 04/23/19 11:53 04/23/19 15:05 Ativan IV 2 mg Q1H PRN Administration CIWA-Ar 16-25 Lorazepam 4 mg 04/23/19 11:53 Ativan IV Q15MIN PRN CIWA-Ar >25 Metoclopramide HCl 10 mg 04/23/19 11:51 Reglan IV Q8H PRN Nausea And Vomiting Nicotine 21 mg 04/23/19 14:00 04/25/19 10:51 Habitrol TD Not Given QDAY DAMARIS Ondansetron HCl 4 mg 04/23/19 11:51 04/24/19 20:06 Zofran IV 4 mg Q4H PRN Administration N/V unrelieved by Reglan Pantoprazole Sodium 40 mg 04/23/19 12:00 04/25/19 10:46 Protonix IV 40 mg QDAY DAMARIS Administration
--- NOTE | 2019-04-25 13:00 | Discharge Summary ---
Providers - Providers Date of Admission: 04/23/19 07:57 Date of discharge: 04/25/19 Attending physician: MADELYN HAYES 04/25/19 08:39 Consult to Mental Health [CONS] Urgent Reason For Exam: psych Place consult to:: director of first impressions commissioning agent Notified:: awaiting call back Comment:: fax to [phone] [facility] Condition: Stable Hospital course: Patient is a 23 yo woman with a history of alcohol abuse, tobacco dependency, asthma and bipolar disorder who presents to [facility] ED with epigastric severe constant sharp radiating to the back abdominal pains associated with n/v without aggravating or relieving factors. She denies bloody vomitus. She admits to drinking alcohol 4 hours prior to coming to the ED. Serum alcohol level was 0.09 (normal is less than 0.07) and lipase 1933 to 481. -Acute alcoholic pancreatitis: treat with ivf, iv narcotics, antiemetic IV, ad dee diet and changed iv narcotics per patient wishes -Alcohol abuse: watch for withdrawal, treat with CIWA protocol -E. Coli UTI: home Levaquin -Tobacco dependency: recreational counselor on stopping, offered nicotine patch -Bipolar disorder per past records: continue present management. -Hypokalemia, replete, recheck in am -Transaminitis due to ETOH, mild: monitor cmp closely -Thrombocytopenia due to ETOH: monitor cbc closely DVT prophylaxis: scd only due to low plt Disposition: DC-01 TO HOME OR SELFCARE Time spent for discharge: 37 minutes Core Measure Documentation - Palliative Care Palliative Care/ Comfort Measures: Not Applicable - Core Measures Any of the following diagnoses?: none - VTE Discharge Requirements Deep Vein Thrombosis/Pulmonary Embolism Present on Admission: No Has pt received <5 days of overlap therapy or INR<2.0: No Anticoagulant overlap therapy prescribed at discharge: No Contraindication No Overlap Therapy order at DC: Not Indicated Exam - Physical Exam Narrative exam: Gen: bmi 19.7, NAD, Awake, Alert, Orientated HEENT: NCAT, EOMI, PERRL, OP Clear Neck: supple, no adenopathy, no thyromegaly, no JVD CVS/Heart: RRR, normal S1S2, pulses present bilaterally Chest/Lungs: CTA B, Symmetrical chest expansion, good air entry bilaterally GI/Abdomen: soft, epigastric abd tenderness, good bowel sounds, mild guarding, no rebound /Bladder: no suprapubic tenderness, no CVA or paraspinal tenderness Extermity/Skin: no c/c/e, no obvious rash MSK: FROM x 4 Neuro: CN 2-12 grossly intact, no new focal deficits Psych: calm - Constitutional Vitals: Temp Pulse Resp BP Pulse Ox 98.2 F 104 H 20 147/103 97 04/25/19 05:58 04/25/19 05:58 04/25/19 05:58 04/25/19 05:58 04/25/19 05:58 Plan Activity: other (no strenous activity unless cleared by PCP) Diet: low salt Special Instructions: smoking cessation Follow up with: CAROLINA MONDRAGON MD [Primary Care Provider] - 3-5 Days Prescriptions: Nicotine [Habitrol] 21 mg TD QDAY #15 patch levoFLOXacin [Levaquin TAB] 500 mg PO QDAY #5 tablet Oxycodone HCl/Acetaminophen [Percocet 10/325 mg] 1 each PO Q6HR PRN #15 tablet PRN Reason: Pain , Severe (7-10) Thiamine [Vitamin B-1] 100 mg PO QDAY #30 tablet
[2019-04-25 14:33] VITALS: BP 132/81
--- NOTE | 2019-04-25 18:44 | Consultation ---
History of Present Illness - Reason for Consult Consult date: 04/25/19 Reason for consult: psychiatric evaluation consulted for "psych" - Chief Complaint Chief complaint: "Why was I have hallucinations?" - History of Present Psychiatric Illness 23 year old AAF seen for psychiatric evaluation on the medical floor where she was admitted for pancreatitis. She was detoxed with [facility] protocol. She has been drinking daily since age 14, with only a 4 day period of sobriety at the longest. She has a history of withdrawal seizure in 2018. She was hospitalized in a mental health facility at that time. She declines rehab or inpatient hospitalization at this time. She is open to outpatient referrals for mental health and substance abuse. She denies suicidal or homicidal ideation. She reports being diagnosed with depression, anxiety, bipolar, and schizophrenia previously. She reports recent visual hallucinations while drinking and during her hospital stay. She reports seeing family members and could see scenes of family members and familiar objects such a telephone. She says this would occur as she was waking from sleep and has occurred other times of day. Visual hallucinations improved and denies auditory hallucinations. Medications and Allergies Allergies Allergy/AdvReac Type Severity Reaction Status Date / Time apple Allergy Itching Verified 11/16/18 14:29 Fish Containing Products Allergy Itching Verified 03/12/19 18:14 Home Medications Medication Instructions Recorded Confirmed Last Taken Type Nicotine [Habitrol] 21 mg TD QDAY #15 patch 04/25/19 Unknown Rx Oxycodone HCl/Acetaminophen 1 each PO Q6HR PRN #15 tablet 04/25/19 Unknown Rx [Percocet 10/325 mg] Thiamine [Vitamin B-1] 100 mg PO QDAY #30 tablet 04/25/19 Unknown Rx levoFLOXacin [Levaquin TAB] 500 mg PO QDAY #5 tablet 04/25/19 Unknown Rx Active Meds: Active Medications Hydromorphone HCl (Dilaudid) 1 mg IV Q4H PRN PRN Reason: Pain , Severe (7-10) Last Admin: 04/25/19 16:33 Dose: 1 mg Documented by: Thiamine HCl 100 mg/ Sodium (Chloride) 51 mls @ 100 mls/hr IV QDAY DAMARIS Last Admin: 04/25/19 12:17 Dose: 100 mls/hr Documented by: Ceftriaxone Sodium (Rocephin/Ns 1 Gm/50 Ml) 1 gm in 50 mls @ 100 mls/hr IV Q24HR DAMARIS; Protocol Last Admin: 04/25/19 10:44 Dose: 100 mls/hr Documented by: Sodium Chloride (Nacl 0.9% 1000 Ml) 1,000 mls @ 100 mls/hr IV DIRECT DAMARIS Last Admin: 04/25/19 12:30 Dose: 100 mls/hr Documented by: Lorazepam (Ativan) 1 mg IV Q1H PRN PRN Reason: CIWA-Ar 8-15 Last Admin: 04/24/19 09:40 Dose: 1 mg Documented by: Lorazepam (Ativan) 2 mg IV Q1H PRN PRN Reason: CIWA-Ar 16-25 Last Admin: 04/23/19 15:05 Dose: 2 mg Documented by: Lorazepam (Ativan) 4 mg IV Q15MIN PRN PRN Reason: CIWA-Ar >25 Metoclopramide HCl (Reglan) 10 mg IV Q8H PRN PRN Reason: Nausea And Vomiting Nicotine (Habitrol) 21 mg TD QDAY [facility] Last Admin: 04/25/19 10:51 Dose: Not Given Documented by: Ondansetron HCl (Zofran) 4 mg IV Q4H PRN PRN Reason: N/V unrelieved by Reglan Last Admin: 04/24/19 20:06 Dose: 4 mg Documented by: Pantoprazole Sodium (Protonix) 40 mg IV QDAY [facility] Last Admin: 04/25/19 10:46 Dose: 40 mg Documented by: Past psychiatric history - Past Medical History Past Medical History: seizures - past Psychiatric treatment and history psychiatric treatment history: multiple diagnoses 2 years ago, she cut herself no current mental health treatment most recently, she received treatment at [facility] 2018 - Social History Social history: alcohol abuse (denies illicit substance use), other (lives with Wally, boyfriend) Mental Status Exam - Vital signs Last Vital Signs Temp 98.9 F 04/25/19 12:25 Pulse 85 04/25/19 12:25 Resp 16 04/25/19 12:25 BP 132/81 04/25/19 14:29 Pulse Ox 96 04/25/19 12:25 - Exam Orientation: time, place, person Affect: depressed Mood: congruent with affect Thought content: other (denies suicidal or homicidal ideation) Thought Process: Intact Perceptions: other (recent VH, see HPI, no AH) Concentration: focused Motor activity: normal Level of consciousness: alert Memory: Intact Sleep Symptoms: None Interaction: cooperative Results Result Diagrams: 04/25/19 05:08 04/25/19 05:08 Abnormal lab results 04/25/19 04/25/19 Range/Units 05:08 05:08 RDW 15.9 H (13.2-15.2) % Plt Count 57 L (140-440) K/mm3 Sodium 134 L (137-145) mmol/L Potassium 3.5 L (3.6-5.0) mmol/L Chloride 95.9 L (98-107) mmol/L BUN 2 L (7-17) mg/dL Creatinine 0.5 L (0.7-1.2) mg/dL Glucose 112 H (65-100) mg/dL Lipase 481 H (13-60) units/L All other labs normal. Assessment and Plan Assessment and plan: Impression: likely visual hallucinations related to alcohol withdrawal-resolving likely hypnopompic hallucinations history of major depression and anxiety disorder, unspecified differential: schizophrenia (symptoms are not consistent with a diagnosis of psychotic disorder) Recommendations: alcohol withdrawal treatment was ordered/addressed by her medical team She is recommended to abstain from drinking alcohol and seek outpatient treatment. She declines rehab or inpatient treatment. criteria not met. dispo: outpatient mental health referral provided to the [facility] and [facility] Crisis/Access line staffed with Dr. Madrid
== END 2019-04-25 17:15 | disposition home or self-care (01) | DRG 439 ==
LOC: ED 04:33 → 3A 07:57
PROVIDERS: ADMIT Internal Medicine; ATTEND Internal Medicine
DX: K85.20 Alcohol induced acute pancreatitis without necrosis or infection (principal); N39.0 Urinary tract infection, site not specified; R56.9 Unspecified convulsions; J45.909 Unspecified asthma, uncomplicated; F17.210 Nicotine dependence, cigarettes, uncomplicated; F10.10 Alcohol abuse, uncomplicated; F31.9 Bipolar disorder, unspecified; R74.0 Nonspecific elevation of levels of transaminase and lactic acid dehydrogenase [LDH]; D69.59 Other secondary thrombocytopenia; E87.6 Hypokalemia; B96.20 Unspecified Escherichia coli [E. coli] as the cause of diseases classified elsewhere
CPT/HCPCS: 36415; 74176; 80048; 80053; 80076; 80307; 80320; 81001; 83690; 84703; 85025; 85027; 87076; 87086; 87186; 99406; G0378; C9113; G0480; J0696; J1170; J2060; J2270; J2405; J3411; J7030

== ENCOUNTER 2019-04-30 09:21 | Emergency (ER) | payer OTHER ==
[2019-04-30] MEDS ORDERED: NACL 0.9% 1000 ML 1,000 ML IV ONE ×2 (09:42→09:50)
[2019-04-30] MEDS ORDERED: ZOFRAN IV ONE (09:43)
[2019-04-30] MEDS ORDERED: DILAUDID IV ONE ×2 (09:50→13:23)
[2019-04-30] MEDS ORDERED: PEPCID IV ONE (09:50)
[2019-04-30 10:19] LABS: Hematocrit 37.8 % (30.3-42.9); Hemoglobin 12.7 gm/dl (10.1-14.3); Mean Corpuscular HGB Conc 34 % (30-34); Mean Corpuscular Volume 91 fl (79-97); Red Blood Count 4.16 M/mm3 (3.65-5.03)
--- NOTE | 2019-04-30 10:20 | Emergency Department Report ---
ED Abdominal Pain HPI - General Chief Complaint: Abdominal Pain Stated Complaint: NAUSEA/VOMITTING/ABD PAIN Time Seen by Provider: 04/30/19 09:35 Source: patient, old records reviewed Mode of arrival: Ambulatory Limitations: No Limitations - History of Present Illness Initial Comments: 23-year-old female with a past medical history of alcohol abuse, seizures, depression, alcoholic pancreatitis is also complaining of epigastric pain, nausea, vomiting, by mouth intolerance for the past 8 hours. Patient was just admitted here April 23 until April 25 for the same symptoms. She was also diagnosed with Escherichia coli UTI. She was discharge meds and Levaquin. Patient did not fill the medication and went to [facility] the next day and was readmitted for alcohol pancreatitis. Patient was admitted April 26 until yesterday April 29 for acute pancreatitis. Once again, she re-presents similar symptoms less than 24 hours after most recent discharge. Pain is a constant epigastric burning pain worse with palpation. Pain is consistent in its intensity without alleviating factors. She denies melena, hematochezia, hematemesis, diarrhea, or fever. No previous abdominal surgeries reported. Patient is unsure of her last alcohol intake. Severity scale (0 -10): 10 - Related Data Previous Rx's Medication Instructions Recorded Last Taken Type Nicotine [Habitrol] 21 mg TD QDAY #15 patch 04/25/19 Unknown Rx Oxycodone HCl/Acetaminophen 1 each PO Q6HR PRN #15 tablet 04/25/19 Unknown Rx [Percocet 10/325 mg] Thiamine [Vitamin B-1] 100 mg PO QDAY #30 tablet 04/25/19 Unknown Rx levoFLOXacin [Levaquin TAB] 500 mg PO QDAY #5 tablet 04/25/19 Unknown Rx Ondansetron [Zofran Odt] 4 mg PO Q8HR PRN #20 tab.rapdis 04/30/19 Unknown Rx Promethazine [Phenergan] 25 mg PO Q6HR PRN #30 tab 04/30/19 Unknown Rx Allergies Allergy/AdvReac Type Severity Reaction Status Date / Time apple Allergy Itching Verified 04/30/19 09:22 Fish Containing Products Allergy Itching Verified 04/30/19 09:22 ED Review of Systems ROS: Stated complaint: NAUSEA/VOMITTING/ABD PAIN Other details as noted in HPI Comment: All other systems reviewed and negative ED Past Medical Hx - Past Medical History Hx Congestive Heart Failure: No Hx Diabetes: No Hx Seizures: Yes Hx Psychiatric Treatment: Yes (for depression, SI) Hx Asthma: Yes Hx COPD: No Additional medical history: Alcoholic pancreatitis - Surgical History Additional Surgical History: foot - Social History Smoking Status: Current Every Day Smoker Substance Use Type: Alcohol - Medications Home Medications: Home Medications Medication Instructions Recorded Confirmed Last Taken Type Nicotine [Habitrol] 21 mg TD QDAY #15 patch 04/25/19 04/30/19 Unknown Rx Oxycodone HCl/Acetaminophen 1 each PO Q6HR PRN #15 tablet 04/25/19 04/30/19 Unknown Rx [Percocet 10/325 mg] Thiamine [Vitamin B-1] 100 mg PO QDAY #30 tablet 04/25/19 04/30/19 Unknown Rx levoFLOXacin [Levaquin TAB] 500 mg PO QDAY #5 tablet 04/25/19 04/30/19 Unknown Rx Ondansetron [Zofran Odt] 4 mg PO Q8HR PRN #20 tab.rapdis 04/30/19 Unknown Rx Promethazine [Phenergan] 25 mg PO Q6HR PRN #30 tab 04/30/19 Unknown Rx ED Physical Exam - General Limitations: No Limitations - Other Other exam information: General: No limitations, patient is alert in no acute distress Head exam: Atraumatic, normocephalic Eyes exam: Normal appearance ENT: Dry mucous membranes Neck exam: Normal inspection, full range of motion, no meningismus nontender Respiratory exam: Clear to auscultation bilateral, no wheezes, rales, crackles Cardiovascular: Normal rate and rhythm, normal heart sounds Abdomen: Soft, nondistended, epigastric tenderness, with normal bowel sounds, no rebound, or guarding Extremity: Full range of motion normal inspection no deformity Back: Normal Inspection, full range of motion, no tenderness Neurologic: Alert, oriented x3, cranial nerves intact, no motor or sensory deficit Psychiatric: normal affect, normal mood Skin: Warm, dry, intact ED Course Vital Signs 04/30/19 04/30/19 04/30/19 09:24 10:05 10:23 Temperature 98.5 F Pulse Rate 108 H 101 H Respiratory 18 18 Rate Blood Pressure 96/72 Blood Pressure 143/105 [Left] O2 Sat by Pulse 98 98 98 Oximetry ED Medical Decision Making - Lab Data Result diagrams: 04/30/19 09:56 04/30/19 09:56 Lab Results 04/30/19 04/30/19 04/30/19 Range/Units 09:56 09:56 09:56 WBC 4.7 (4.5-11.0) K/mm3 RBC 4.16 (3.65-5.03) M/mm3 Hgb 12.7 (10.1-14.3) gm/dl Hct 37.8 (30.3-42.9) % MCV 91 (79-97) fl MCH 31 (28-32) pg MCHC 34 (30-34) % RDW 16.0 H (13.2-15.2) % Plt Count 211 (140-440) K/mm3 [place] % (Auto) Senior Radiation Therapist Add Manual Diff Complete Total Counted 100 Seg Neuts % (Manual) 75.0 H (40.0-70.0) % Band Neutrophils % 0 % Lymphocytes % (Manual) 10.0 L (13.4-35.0) % Reactive Lymphs % (Man) 0 % Monocytes % (Manual) 14.0 H (0.0-7.3) % Eosinophils % (Manual) 1.0 (0.0-4.3) % Basophils % (Manual) 0 (0.0-1.8) % Metamyelocytes % 0 % Myelocytes % 0 % Promyelocytes % 0 % Blast Cells % 0 % Nucleated RBC % Not Reportable Seg Neutrophils # Man 3.5 (1.8-7.7) K/mm3 Band Neutrophils # 0.0 K/mm3 Lymphocytes # (Manual) 0.5 L (1.2-5.4) K/mm3 Abs React Lymphs (Man) 0.0 K/mm3 Monocytes # (Manual) 0.7 (0.0-0.8) K/mm3 Eosinophils # (Manual) 0.0 (0.0-0.4) K/mm3 Basophils # (Manual) 0.0 (0.0-0.1) K/mm3 Metamyelocytes # 0.0 K/mm3 Myelocytes # 0.0 K/mm3 Promyelocytes # 0.0 K/mm3 Blast Cells # 0.0 K/mm3 WBC Morphology Not Reportable Hypersegmented Neuts Not Reportable Hyposegmented Neuts Not Reportable Hypogranular Neuts Not Reportable Smudge Cells Not Reportable Toxic Granulation Not Reportable Toxic Vacuolation Not Reportable Dohle Bodies Not Reportable Pelger-Huet Anomaly Not Reportable Flor Rods Not Reportable Platelet Estimate Consistent w auto Clumped Platelets Not Reportable Plt Clumps, EDTA Not Reportable Large Platelets Not Reportable Giant Platelets Not Reportable Platelet Satelliting Not Reportable Plt Morphology Comment Not Reportable RBC Morphology Normal Dimorphic RBCs Not Reportable Polychromasia Not Reportable Hypochromasia Not Reportable Poikilocytosis Not Reportable Anisocytosis Not Reportable Microcytosis Not Reportable Macrocytosis Not Reportable Spherocytes Not Reportable Pappenheimer Bodies Not Reportable Sickle Cells Not Reportable Target Cells Not Reportable Tear Drop Cells Not Reportable Ovalocytes Not Reportable Helmet Cells Not Reportable [place] Bodies Not Reportable Spooner Rings Not Reportable [place] Cells Not Reportable Bite Cells Not Reportable Crenated Cell Not Reportable Elliptocytes Not Reportable Acanthocytes (Spur) Not Reportable Rouleaux Not Reportable Hemoglobin C Crystals Not Reportable Schistocytes Not Reportable Malaria parasites Not Reportable Homero Bodies Not Reportable Hem Pathologist Commnt No Sodium 138 (137-145) mmol/L Potassium 4.6 (3.6-5.0) mmol/L Chloride 98.0 (98-107) mmol/L Carbon Dioxide 24 (22-30) mmol/L Anion Gap 21 mmol/L BUN 3 L (7-17) mg/dL Creatinine 0.7 (0.7-1.2) mg/dL Estimated GFR > 60 ml/min BUN/Creatinine Ratio 4 % Glucose 103 H (65-100) mg/dL Calcium 10.1 (8.4-10.2) mg/dL Magnesium 2.00 (1.7-2.3) mg/dL Total Bilirubin 0.60 (0.1-1.2) mg/dL AST 36 (5-40) units/L ALT 28 (7-56) units/L Alkaline Phosphatase 47 (35-129) units/L Total Protein 7.7 (6.3-8.2) g/dL Albumin 4.2 (3.9-5) g/dL Albumin/Globulin Ratio 1.2 % Lipase 139 H (13-60) units/L HCG, Qual (Negative) Urine Color (Yellow) Urine Turbidity (Clear) Urine pH (5.0-7.0) Ur Specific [place] (1.003-1.030) Urine Protein (Negative) mg/dL Urine Glucose (UA) (Negative) mg/dL Urine Ketones (Negative) mg/dL Urine Blood (Negative) Urine Nitrite (Negative) Urine Bilirubin (Negative) Urine Urobilinogen (<2.0) mg/dL Ur Leukocyte Esterase (Negative) Urine WBC (Auto) (0.0-6.0) /HPF Urine RBC (Auto) (0.0-6.0) /HPF U Epithel Cells (Auto) (0-13.0) /HPF Urine Mucus /HPF Urine Opiates Screen Urine Methadone Screen Ur Barbiturates Screen Ur Phencyclidine Scrn Ur Amphetamines Screen U Benzodiazepines Scrn Urine Cocaine Screen U Marijuana (THC) Screen Drugs of Abuse Note Plasma/Serum Alcohol < 0.01 (0-0.07) % 04/30/19 04/30/19 04/30/19 Range/Units 09:56 11:30 11:30 WBC (4.5-11.0) K/mm3 RBC (3.65-5.03) M/mm3 Hgb (10.1-14.3) gm/dl Hct (30.3-42.9) % MCV (79-97) fl MCH (28-32) pg MCHC (30-34) % RDW (13.2-15.2) % Plt Count (140-440) K/mm3 [place] % (Auto) Add Manual Diff Total Counted Seg Neuts % (Manual) (40.0-70.0) % Band Neutrophils % % Lymphocytes % (Manual) (13.4-35.0) % Reactive Lymphs % (Man) % Monocytes % (Manual) (0.0-7.3) % Eosinophils % (Manual) (0.0-4.3) % Basophils % (Manual) (0.0-1.8) % Metamyelocytes % % Myelocytes % % Promyelocytes % % Blast Cells % % Nucleated RBC % Seg Neutrophils # Man (1.8-7.7) K/mm3 Band Neutrophils # K/mm3 Lymphocytes # (Manual) (1.2-5.4) K/mm3 Abs React Lymphs (Man) K/mm3 Monocytes # (Manual) (0.0-0.8) K/mm3 Eosinophils # (Manual) (0.0-0.4) K/mm3 Basophils # (Manual) (0.0-0.1) K/mm3 Metamyelocytes # K/mm3 Myelocytes # K/mm3 Promyelocytes # K/mm3 Blast Cells # K/mm3 WBC Morphology Hypersegmented Neuts Hyposegmented Neuts Hypogranular Neuts Smudge Cells Toxic Granulation Toxic Vacuolation Dohle Bodies Pelger-Huet Anomaly Flor Rods Platelet Estimate Clumped Platelets Plt Clumps, EDTA Large Platelets Giant Platelets Platelet Satelliting Plt Morphology Comment RBC Morphology Dimorphic RBCs Polychromasia Hypochromasia Poikilocytosis Anisocytosis Microcytosis Macrocytosis Spherocytes Pappenheimer Bodies Sickle Cells Target Cells Tear Drop Cells Ovalocytes Helmet Cells Huerta-[place] Bodies Spooner Rings Marvin Cells Bite Cells Crenated Cell Elliptocytes Acanthocytes (Spur) Rouleaux Hemoglobin C Crystals Schistocytes Malaria parasites Homero Bodies Hem Pathologist Commnt Sodium (137-145) mmol/L Potassium (3.6-5.0) mmol/L Chloride (98-107) mmol/L Carbon Dioxide (22-30) mmol/L Anion Gap mmol/L BUN (7-17) mg/dL Creatinine (0.7-1.2) mg/dL Estimated GFR ml/min BUN/Creatinine Ratio % Glucose (65-100) mg/dL Calcium (8.4-10.2) mg/dL Magnesium (1.7-2.3) mg/dL Total Bilirubin (0.1-1.2) mg/dL AST (5-40) units/L ALT (7-56) units/L Alkaline Phosphatase (35-129) units/L Total Protein (6.3-8.2) g/dL Albumin (3.9-5) g/dL Albumin/Globulin Ratio % Lipase (13-60) units/L HCG, Qual Negative (Negative) Urine Color Yellow (Yellow) Urine Turbidity Clear (Clear) Urine pH 7.0 (5.0-7.0) Ur Specific [place] 1.008 (1.003-1.030) Urine Protein <15 mg/dl (Negative) mg/dL Urine Glucose (UA) Neg (Negative) mg/dL Urine Ketones Tr (Negative) mg/dL Urine Blood Neg (Negative) Urine Nitrite Neg (Negative) Urine Bilirubin Neg (Negative) Urine Urobilinogen < 2.0 (<2.0) mg/dL Ur Leukocyte Esterase Neg (Negative) Urine WBC (Auto) 1.0 (0.0-6.0) /HPF Urine RBC (Auto) 1.0 (0.0-6.0) /HPF U Epithel Cells (Auto) 1.0 (0-13.0) /HPF Urine Mucus Few /HPF Urine Opiates Screen Presumptive negative Urine Methadone Screen Presumptive negative Ur Barbiturates Screen Presumptive negative Ur Phencyclidine Scrn Presumptive negative Ur Amphetamines Screen Presumptive negative U Benzodiazepines Scrn Presumptive negative Urine Cocaine Screen Presumptive negative U Marijuana (THC) Screen Presumptive negative Drugs of Abuse Note Disclamer Plasma/Serum Alcohol (0-0.07) % - Medical Decision Making Patient better with ED treatment. Lipase S improved compared to previous value. Tolerating by mouth intake after each treatment included Pepcid, Zofran, normal saline, Dilaudid, Maalox, and viscous lidocaine. Patient states she is currently has Percocet, tramadol, Levaquin, and Protonix at home but she does not have anything for nausea. She'll be discharged on Zofran and Phenergan. Phenergan tablets and more affordable than suppositories. - Differential Diagnosis pancreatitis, gastritis, noncompliance Critical Care Time: No Critical care attestation.: If time is entered above; I have spent that time in minutes in the direct care of this critically ill patient, excluding procedure time. ED Disposition Clinical Impression: Epigastric abdominal pain, Recurrent pancreatitis, Alcohol abuse Gastritis Qualifiers: Chronicity: acute Gastritis bleeding: without bleeding Disposition: DC-01 TO HOME OR SELFCARE Is pt being admited?: No Does the pt Need Aspirin: No Condition: Stable Instructions: Gastritis (ED), Pancreatitis (ED), Abuse of Alcohol (ED) Additional Instructions: Take the medication as prescribed. Follow up with your doctor or the clini c/doctor provided. Return if symptoms worsen as indicated by your discharge instructions Prescriptions: Promethazine [Phenergan] 25 mg PO Q6HR PRN #30 tab PRN Reason: Nausea Ondansetron [Zofran Odt] 4 mg PO Q8HR PRN #20 tab.rapdis PRN Reason: Nausea And Vomiting Referrals: CAROLINA MONDRAGON MD [Primary Care Provider] - 3-5 Days [facility] [Provider Group] - 3-5 Days [facility] [Outside] - 3-5 Days (for help with alcohol addiction) Time of Disposition: 14:24
[2019-04-30 10:23] VITALS: BP 143/105
[2019-04-30 10:40] LABS: Alanine Aminotransferase 28 units/L (7-56); Albumin 4.2 g/dL (3.9-5); BUN/Creatinine Ratio 4; Blood Urea Nitrogen 3 mg/dL (7-17); Calcium 10.1 mg/dL (8.4-10.2); Hemolysis Index 18
[2019-04-30 11:27] LABS: Basophils % (Manual) 0 % (0.0-1.8); Total Cells Counted 100
[2019-04-30 11:28] LABS: Platelet Count 211 K/mm3 (140-440); Platelet Estimate Consistent w Auto; RBC Morphology Normal
[2019-04-30 12:03] LABS: Bilirubin,Urine NEG (Negative); Blood,Urine NEG (Negative); Color,Urine Yellow (Yellow); Mucus,Urine FEW /HPF; Protein,Urine <15 mg/dL mg/dL (Negative); Urobilinogen,Urine < 2.0 mg/dL (<2.0)
[2019-04-30 12:27] LABS: Amphetamine Screen,Urine PRESUMPTIVE NEGATIVE; Benzodiazepines Screen,Urine PRESUMPTIVE NEGATIVE; Cannabinoid Screen,Urine PRESUMPTIVE NEGATIVE; Cocaine Screen,Urine PRESUMPTIVE NEGATIVE; Methadone Screen,Urine PRESUMPTIVE NEGATIVE; Opiate Screen,Urine PRESUMPTIVE NEGATIVE
[2019-04-30] MEDS ORDERED: ALUM-MAG HYDROX-SIMETH 200-200-20MG/5ML PO ONE (13:26)
[2019-04-30] MEDS ORDERED: LIDOCAINE VISCOUS 2% PO ONE (13:26)
== END 2019-04-30 15:00 | disposition home or self-care (01) ==
LOC: ED 09:21
DX: K29.00 Acute gastritis without bleeding (principal); K86.1 Other chronic pancreatitis; E11.9 Type 2 diabetes mellitus without complications; F32.9 Major depressive disorder, single episode, unspecified; J45.909 Unspecified asthma, uncomplicated; F17.200 Nicotine dependence, unspecified, uncomplicated
CPT/HCPCS: 36415; 80053; 80307; 81001; 83690; 83735; 84703; 85007; 85025; 96361; 96374; 96375; 99284; G0480; J1170; J2405; J7030; 80320

== ENCOUNTER 2019-05-02 13:40 | Emergency (ER) | payer OTHER ==
--- NOTE | 2019-05-02 14:02 | Event Note ---
ED Screening Note Date of service: 05/02/19 Time: 13:57 ED Screening Note: 23 y/o female comes in for abdominal pain and N/V started 9am. Hx/o pancreatitis. This initial assessment/diagnostic orders/clinical plan/treatment(s) is/are subject to change based on patients health status, clinical progression and re- assessment by fellow clinical providers in the ED. Further treatment and workup at subsequent clinical providers discretion. Patient/guardian urged not to elope from the ED as their condition may be serious if not clinically assessed and managed. Initial orders include:
[2019-05-02] MEDS ORDERED: ZOFRAN ODT PO ONE (14:23)
[2019-05-02 15:09] LABS: Hematocrit 38.9 % (30.3-42.9); Hemoglobin 12.9 gm/dl (10.1-14.3); Mean Corpuscular HGB Conc 33 % (30-34); Mean Corpuscular Volume 92 fl (79-97); Red Blood Count 4.22 M/mm3 (3.65-5.03); Red Cell Distribution Width 15.9 % (13.2-15.2)
[2019-05-02 15:13] LABS: Platelet Count 241 K/mm3 (140-440)
[2019-05-02 15:25] LABS: Alanine Aminotransferase 25 units/L (7-56); Albumin 4.2 g/dL (3.9-5); BUN/Creatinine Ratio 8; Blood Urea Nitrogen 6 mg/dL (7-17); Calcium 9.6 mg/dL (8.4-10.2); Hemolysis Index 9
[2019-05-02 15:34] LABS: Bilirubin,Direct < 0.2 mg/dL (0-0.2)
[2019-05-02] MEDS ORDERED: NACL 0.9% 1000 ML 1,000 ML IV ONE ×2 (16:01→17:23)
[2019-05-02] MEDS ORDERED: ZOFRAN IV ONE (16:01)
[2019-05-02 16:03] LABS: Basophils % (Manual) 0 % (0.0-1.8); Total Cells Counted 100
[2019-05-02 16:04] LABS: Poikilocytosis Few
[2019-05-02 17:12] LABS: HCG Qualitative,Urine Negative (Negative)
[2019-05-02 17:15] LABS: Bilirubin,Urine NEG (Negative); Blood,Urine NEG (Negative); Color,Urine Amber (Yellow); Mucus,Urine 3+ /HPF
[2019-05-02] MEDS ORDERED: DILAUDID IV ONE (17:22)
[2019-05-02] MEDS ORDERED: REGLAN IV ONE (17:22)
[2019-05-02] MEDS ORDERED: LIDOCAINE VISCOUS 2% PO ONE (18:28)
[2019-05-02] MEDS ORDERED: ALUM-MAG HYDROX-SIMETH 200-200-20MG/5ML PO ONE (18:28)
--- NOTE | 2019-05-02 19:51 | Emergency Department Report ---
ED Abdominal Pain HPI - General Chief Complaint: Abdominal Pain Stated Complaint: ABDOMINAL PAIN/NAUSEA Time Seen by Provider: 05/02/19 18:26 Source: patient Mode of arrival: Ambulatory Limitations: No Limitations - History of Present Illness Initial Comments: 23 y/o female comes in for abdominal pain and N/V started 9am. Hx/o pancreatitis. seen on 04/23/2019 for , this is chronic problem for this patient she continues to refuse admission and is nonadherent to GI follow up and Protonix , last n/v 6 hrs ago pt is now tolerating po intake without n/v there is no fever no chills no cp or sob, no melena no hemoptysis MD Complaint: abdominal pain Onset/Timin -: week(s) Location: LUQ Radiation: none Migration to: LUQ Severity scale (0 -10): 4 Quality: aching, burning Consistency: constant Improves With: rest, other (PPI when adherent ) Worsens With: eating Associated Symptoms: nausea, vomiting. denies: diarrhea, fever, chills, hematemesis, melena, hematuria Treatments Prior to Arrival: antacids - Related Data LMP (females 10-50): 3 weeks Previous Rx's Medication Instructions Recorded Last Taken Type Nicotine [Habitrol] 21 mg TD QDAY #15 patch 04/25/19 Unknown Rx Oxycodone HCl/Acetaminophen 1 each PO Q6HR PRN #15 tablet 04/25/19 Unknown Rx [Percocet 10/325 mg] Thiamine [Vitamin B-1] 100 mg PO QDAY #30 tablet 04/25/19 Unknown Rx levoFLOXacin [Levaquin TAB] 500 mg PO QDAY #5 tablet 04/25/19 Unknown Rx Ondansetron [Zofran Odt] 4 mg PO Q8HR PRN #20 tab.rapdis 04/30/19 Unknown Rx Promethazine [Phenergan] 25 mg PO Q6HR PRN #30 tab 04/30/19 Unknown Rx Dicyclomine [Bentyl] 10 mg PO QID PRN #40 capsule 05/02/19 Unknown Rx Sucralfate [Carafate] 1 gm PO ACHS 7 Days #28 tablet 05/02/19 Unknown Rx Allergies Allergy/AdvReac Type Severity Reaction Status Date / Time apple Allergy Itching Verified 04/30/19 09:22 Fish Containing Products Allergy Itching Verified 04/30/19 09:22 ED Review of Systems ROS: Stated complaint: ABDOMINAL PAIN/NAUSEA Other details as noted in HPI Constitutional: denies: chills, fever Eyes: denies: eye pain, eye discharge, vision change ENT: denies: ear pain, throat pain Respiratory: denies: cough, shortness of breath, wheezing Cardiovascular: denies: chest pain, palpitations Endocrine: no symptoms reported Gastrointestinal: abdominal pain, nausea, vomiting. denies: diarrhea, constipation, hematemesis, melena, hematochezia Genitourinary: frequency, hematuria, dyspareunia. denies: urgency, dysuria, discharge Musculoskeletal: denies: back pain, joint swelling, arthralgia Skin: denies: rash, lesions Neurological: denies: headache, weakness, paresthesias Psychiatric: denies: anxiety, depression Hematological/Lymphatic: denies: easy bleeding, easy bruising ED Past Medical Hx - Past Medical History Previous Medical History?: Yes Hx Congestive Heart Failure: No Hx Diabetes: No Hx Seizures: Yes Hx Psychiatric Treatment: Yes (for depression, SI) Hx Asthma: Yes Hx COPD: No Additional medical history: Alcoholic pancreatitis - Surgical History Past Surgical History?: Yes Additional Surgical History: foot - Social History Smoking Status: Current Every Day Smoker Substance Use Type: Alcohol - Medications Home Medications: Home Medications Medication Instructions Recorded Confirmed Last Taken Type Nicotine [Habitrol] 21 mg TD QDAY #15 patch 04/25/19 04/30/19 Unknown Rx Oxycodone HCl/Acetaminophen 1 each PO Q6HR PRN #15 tablet 04/25/19 04/30/19 Unknown Rx [Percocet 10/325 mg] Thiamine [Vitamin B-1] 100 mg PO QDAY #30 tablet 04/25/19 04/30/19 Unknown Rx levoFLOXacin [Levaquin TAB] 500 mg PO QDAY #5 tablet 04/25/19 04/30/19 Unknown Rx Ondansetron [Zofran Odt] 4 mg PO Q8HR PRN #20 tab.rapdis 04/30/19 Unknown Rx Promethazine [Phenergan] 25 mg PO Q6HR PRN #30 tab 04/30/19 Unknown Rx Dicyclomine [Bentyl] 10 mg PO QID PRN #40 capsule 05/02/19 Unknown Rx Sucralfate [Carafate] 1 gm PO ACHS 7 Days #28 tablet 05/02/19 Unknown Rx ED Physical Exam - General Limitations: No Limitations General appearance: alert, in no apparent distress - Head Head exam: Present: atraumatic, normocephalic - Eye Eye exam: Present: normal appearance, PERRL, EOMI Pupils: Present: normal accommodation - ENT ENT exam: Present: mucous membranes moist - Neck Neck exam: Present: normal inspection, full ROM. Absent: tenderness, lymphadenopathy - Respiratory Respiratory exam: Present: normal lung sounds bilaterally. Absent: respiratory distress, wheezes, stridor, chest wall tenderness - Cardiovascular Cardiovascular Exam: Present: regular rate, normal rhythm, normal heart sounds. Absent: systolic murmur, diastolic murmur, rubs, gallop - GI/Abdominal GI/Abdominal exam: Present: soft, tenderness (LUQ ), normal bowel sounds. Absent: guarding, rebound, rigid, bruit, hernia - Rectal Rectal exam: Present: deferred - Extremities Exam Extremities exam: Present: normal inspection, full ROM, normal capillary refill. Absent: tenderness, pedal edema, joint swelling, calf tenderness - Back Exam Back exam: Present: normal inspection, full ROM, tenderness. Absent: CVA tenderness (R), CVA tenderness (L), muscle spasm, rash noted - Neurological Exam Neurological exam: Present: alert, oriented X3, CN II-XII intact, normal gait, reflexes normal - Psychiatric Psychiatric exam: Present: normal affect, normal mood - Skin Skin exam: Present: warm, dry, intact, normal color. Absent: rash ED Medical Decision Making - Lab Data Result diagrams: 05/02/19 14:24 05/02/19 14:24 Labs 05/02/19 05/02/19 05/02/19 14:24 14:24 14:24 WBC 5.1 RBC 4.22 Hgb 12.9 Hct 38.9 MCV 92 MCH 31 MCHC 33 RDW 15.9 H Plt Count 241 [place] % (Auto) Light Truck Driver Add Manual Diff Complete Total Counted 100 Seg Neuts % (Manual) 58.0 Band Neutrophils % 0 Lymphocytes % (Manual) 30.0 Reactive Lymphs % (Man) 0 Monocytes % (Manual) 11.0 H Eosinophils % (Manual) 1.0 Basophils % (Manual) 0 Metamyelocytes % 0 Myelocytes % 0 Promyelocytes % 0 Blast Cells % 0 Nucleated RBC % Not Reportable Seg Neutrophils # Man 3.0 Band Neutrophils # 0.0 Lymphocytes # (Manual) 1.5 Abs React Lymphs (Man) 0.0 Monocytes # (Manual) 0.6 Eosinophils # (Manual) 0.1 Basophils # (Manual) 0.0 Metamyelocytes # 0.0 Myelocytes # 0.0 Promyelocytes # 0.0 Blast Cells # 0.0 WBC Morphology Not Reportable Hypersegmented Neuts Not Reportable Hyposegmented Neuts Not Reportable Hypogranular Neuts Not Reportable Smudge Cells Not Reportable Toxic Granulation Not Reportable Toxic Vacuolation Not Reportable Dohle Bodies Not Reportable Pelger-Huet Anomaly Not Reportable Flor Rods Not Reportable Platelet Estimate Appears normal Clumped Platelets Not Reportable Plt Clumps, EDTA Not Reportable Large Platelets Not Reportable Giant Platelets Not Reportable Platelet Satelliting Not Reportable Plt Morphology Comment Not Reportable RBC Morphology Not Reportable Dimorphic RBCs Not Reportable Polychromasia Not Reportable Hypochromasia Not Reportable Poikilocytosis Few Anisocytosis Not Reportable Microcytosis Not Reportable Macrocytosis Not Reportable Spherocytes Not Reportable Pappenheimer Bodies Not Reportable Sickle Cells Not Reportable Target Cells Not Reportable Tear Drop Cells Not Reportable Ovalocytes Not Reportable Helmet Cells Not Reportable [place] Bodies Not Reportable Avery Rings Not Reportable [place] Cells Not Reportable Bite Cells Not Reportable Crenated Cell Not Reportable Elliptocytes Not Reportable Acanthocytes (Spur) Not Reportable Rouleaux Not Reportable Hemoglobin C Crystals Not Reportable Schistocytes Not Reportable Malaria parasites Not Reportable Homero Bodies Not Reportable Hem Pathologist Commnt No Sodium 139 Potassium 3.6 D Chloride 98.3 Carbon Dioxide 25 Anion Gap 19 BUN 6 L Creatinine 0.8 Estimated GFR > 60 BUN/Creatinine Ratio 8 Glucose 107 H Calcium 9.6 Total Bilirubin 0.70 Direct Bilirubin < 0.2 Indirect Bilirubin 0.5 AST 28 ALT 25 Alkaline Phosphatase 46 Total Protein 7.9 Albumin 4.2 Albumin/Globulin Ratio 1.1 Amylase 41 Lipase 174 H HCG, Qual Negative Urine Color Urine Turbidity Urine pH Ur Specific [employer] Urine Protein Urine Glucose (UA) Urine Ketones Urine Blood Urine Nitrite Ur Reducing Substances Urine Bilirubin Urine Ictotest Urine Urobilinogen Ur Leukocyte Esterase Urine WBC (Auto) Urine RBC (Auto) U Epithel Cells (Auto) Urine Mucus Urine HCG, Qual 05/02/19 16:51 WBC RBC Hgb Hct MCV MCH MCHC RDW Plt Count [place] % (Auto) Add Manual Diff Total Counted Seg Neuts % (Manual) Band Neutrophils % Lymphocytes % (Manual) Reactive Lymphs % (Man) Monocytes % (Manual) Eosinophils % (Manual) Basophils % (Manual) Metamyelocytes % Myelocytes % Promyelocytes % Blast Cells % Nucleated RBC % Seg Neutrophils # Man Band Neutrophils # Lymphocytes # (Manual) Abs React Lymphs (Man) Monocytes # (Manual) Eosinophils # (Manual) Basophils # (Manual) Metamyelocytes # Myelocytes # Promyelocytes # Blast Cells # WBC Morphology Hypersegmented Neuts Hyposegmented Neuts Hypogranular Neuts Smudge Cells Toxic Granulation Toxic Vacuolation Dohle Bodies Pelger-Huet Anomaly Flor Rods Platelet Estimate Clumped Platelets Plt Clumps, EDTA Large Platelets Giant Platelets Platelet Satelliting Plt Morphology Comment RBC Morphology Dimorphic RBCs Polychromasia Hypochromasia Poikilocytosis Anisocytosis Microcytosis Macrocytosis Spherocytes Pappenheimer Bodies Sickle Cells Target Cells Tear Drop Cells Ovalocytes Helmet Cells [place] Bodies Avery Rings [place] Cells Bite Cells Crenated Cell Elliptocytes Acanthocytes (Spur) Rouleaux Hemoglobin C Crystals Schistocytes Malaria parasites Homero Bodies Hem Pathologist Commnt Sodium Potassium Chloride Carbon Dioxide Anion Gap BUN Creatinine Estimated GFR BUN/Creatinine Ratio Glucose Calcium Total Bilirubin Direct Bilirubin Indirect Bilirubin AST ALT Alkaline Phosphatase Total Protein Albumin Albumin/Globulin Ratio Amylase Lipase HCG, Qual Urine Color Chey Urine Turbidity Cloudy Urine pH 6.0 Ur Specific Fe [employer] 1.019 Urine Protein 30 mg/dl Urine Glucose (UA) Neg Urine Ketones 20 Urine Blood Neg Urine Nitrite Neg Ur Reducing Substances Not Reportable Urine Bilirubin Neg Urine Ictotest Not Reportable Urine Urobilinogen 2.0 Ur Leukocyte Esterase Neg Urine WBC (Auto) 8.0 H Urine RBC (Auto) 2.0 U Epithel Cells (Auto) 61.0 H Urine Mucus 3+ Urine HCG, Qual Negative - Radiology Data Radiology results: report reviewed, image reviewed pt is tolerating po intake without n/v declines admission for acute tachycardia status plan continue Protonix at home She 7 days continue Ultram when necessary pain followed by GI tomorrow discharge emergency department to tolerate by mouth patient verbalized agreement and understanding of discharge plan DC'd home in stable condition at this time. - Medical Decision Making pt is tolerating po intake without n/v cbc is normal , lipase 174, pt refuses offered admission, start taking protonix, carafate , bentyl, pt has tramadol and protonix at home, will follow up with GI tomorrow, pt will return to ed if sym ptoms worsen. pt dc'd to home in stable condtion at this time. Critical care attestation.: If time is entered above; I have spent that time in minutes in the direct care of this critically ill patient, excluding procedure time. ED Disposition Clinical Impression: Acute pancreatitis Qualifiers: Pancreatitis type: unspecified pancreatitis type Acute pancreatitis complication: unspecified Qualified Code(s): K85.90 - Acute pancreatitis without necrosis or infection, unspecified Nausea and vomiting Qualifiers: Vomiting type: unspecified Vomiting Intractability: unspecified Qualified Code(s): R11.2 - Nausea with vomiting, unspecified Disposition: DC-01 TO HOME OR SELFCARE Is pt being admited?: No Does the pt Need Aspirin: No Condition: Stable Instructions: Abdominal Pain (ED), Pancreatitis (ED), Acute Nausea and Vomiting (ED) Prescriptions: Dicyclomine [Bentyl] 10 mg PO QID PRN #40 capsule PRN Reason: abdominal spasm Sucralfate [Carafate] 1 gm PO ACHS 7 Days #28 tablet Referrals: [facility] [Provider Group] - 3-5 Days [facility] [Outside] - 3-5 Days Forms: Work/School Release Form(ED) Time of Disposition: 19:54
[2019-05-02 20:03] VITALS: BP 145/97
--- NOTE | 2019-05-02 20:15 | Ultrasound Report ---
PROCEDURE: Abdominal ultrasound. TECHNIQUE: Real-time sonography in multiple planes of the abdomen was performed with image documenta tion. HISTORY: Abdominal pain. COMPARISONS: None. FINDINGS: The pancreas is grossly normal but suboptimally visualized. The echogenicity of the liver appears inc reased compared to the kidney. This suggests fatty metamorphosis. There are no focal liver masses alexi ntified. The portal vein is patent by color flow imaging. The common hepatic duct measures 6.4 mm. Th e gallbladder is well-distended with normal wall thickness. There are no gallstones. Both kidneys nallely ear normal in size and have normal echogenicity. There is no hydronephrosis. The spleen appears homog eneous. The inferior vena cava is patent. The proximal portion of the abdominal aorta has a normal ca liber. IMPRESSION: Probable fatty metamorphosis of the liver. Mild dilatation of the common hepatic duct. This document is electronically signed by Bill Metcalf MD., May 02 2019 08:13:36 PM ET
== END 2019-05-02 20:04 | disposition home or self-care (01) ==
LOC: ED 13:40
DX: K85.90 Acute pancreatitis without necrosis or infection, unspecified (principal); R11.2 Nausea with vomiting, unspecified; F32.9 Major depressive disorder, single episode, unspecified; J45.909 Unspecified asthma, uncomplicated; F17.200 Nicotine dependence, unspecified, uncomplicated; Z91.018 Allergy to other foods; Z91.013 Allergy to seafood; Z79.899 Other long term (current) drug therapy
CPT/HCPCS: 36415; 76700; 80048; 80076; 81001; 81025; 82150; 83690; 84703; 85007; 85025; 96361; 96374; 96375; 99284; J1170; J2405; J2765; J7030; Q0162

== ENCOUNTER 2019-11-27 04:05 | Emergency (ER) | payer SELFPAY ==
--- NOTE | 2019-11-27 04:31 | Emergency Department Report ---
HPI - HPI HPI: 23 year-old female presents to the emergency department via EMS with complaint of suicidal ideations and possible attempt. Apparently the patient was laying down in the street hoping that she would be run over by a car. She is here with her significant other who seems to have convinced her to get out of the road, and EMS was called and they waited for them in a parking lot. The patient says that she has a psychiatric history of depression, anxiety, bipolar disorder and schizophrenia. She denies any homicidal ideations. She admits to some auditory and visual hallucinations. She says that the hallucinations occur intermittently and she has unable to explain them. She also says that she is unable to explain the reasons why she wants to harm herself. She says that she has been to inpatient psych at least 2 times in the past to [facility] and says she does not want to go back there. The patient previously was on risperidone and Prozac. She stopped taking the risp eridone as she says it worsened her suicidal ideations and she is out of the Prozac and cannot afford any more. She is a tobacco smoker but denies any illicit drug use. <NORMA ROMAN - Last Filed: 11/27/19 06:01> <DEVANTE BOLTON - Last Filed: 11/28/19 14:40> - General Time Seen by Provider: 11/27/19 04:20 ED Past Medical Hx - Past Medical History Hx Congestive Heart Failure: No Hx Diabetes: No Hx Seizures: Yes Hx Psychiatric Treatment: Yes (for depression, SI) Hx Asthma: Yes Hx COPD: No Additional medical history: Alcoholic pancreatitis - Surgical History Additional Surgical History: foot - Social History Smoking Status: Current Every Day Smoker Substance Use Type: Alcohol <NORMA ROMAN - Last Filed: 11/27/19 06:01> <DEVANTE BOLTON - Last Filed: 11/28/19 14:40> - Medications Home Medications: Home Medications Medication Instructions Recorded Confirmed Last Taken Type Nicotine [Habitrol] 21 mg TD QDAY #15 patch 04/25/19 04/30/19 Unknown Rx Oxycodone HCl/Acetaminophen 1 each PO Q6HR PRN #15 tablet 04/25/19 04/30/19 Unknown Rx [Percocet 10/325 mg] Thiamine [Vitamin B-1] 100 mg PO QDAY #30 tablet 04/25/19 04/30/19 Unknown Rx levoFLOXacin [Levaquin TAB] 500 mg PO QDAY #5 tablet 04/25/19 04/30/19 Unknown Rx Ondansetron [Zofran Odt] 4 mg PO Q8HR PRN #20 tab.rapdis 04/30/19 Unknown Rx Promethazine [Phenergan] 25 mg PO Q6HR PRN #30 tab 04/30/19 Unknown Rx Dicyclomine [Bentyl] 10 mg PO QID PRN #40 capsule 05/02/19 Unknown Rx Sucralfate [Carafate] 1 gm PO ACHS 7 Days #28 tablet 05/02/19 Unknown Rx FLUoxetine [PROzac] 20 mg PO QDAY #30 capsule 11/28/19 Unknown Rx risperiDONE [RisperDAL] 0.5 mg PO BID #60 tablet 11/28/19 Unknown Rx ED Review of Systems ROS: Stated complaint: SUICIDAL Other details as noted in HPI Comment: All other systems reviewed and negative Constitutional: denies: chills, fever Respiratory: denies: shortness of breath Cardiovascular: denies: chest pain Gastrointestinal: denies: abdominal pain Musculoskeletal: denies: back pain Neurological: denies: headache, weakness Psychiatric: depression, auditory hallucinations, visual hallucinations, suicidal thoughts. denies: homicidal thoughts <NORMA ROMAN - Last Filed: 11/27/19 06:01> ROS: Stated complaint: SUICIDAL Other details as noted in HPI <DEVANTE BOLTON - Last Filed: 11/28/19 14:40> Physical Exam - Physical Exam Physical Exam: GENERAL: The patient is well-developed well-nourished. HEENT: Normocephalic. Atraumatic. Patient has moist mucous membranes. EYES: Extraocular motions are intact. NECK: Supple. Trachea is midline. CHEST/LUNGS: Clear to auscultation. There is no respiratory distress noted. HEART/CARDIOVASCULAR: Regular. There is no tachycardia. There is no murmur. ABDOMEN: There is no abdominal distention. SKIN:Skin is warm and dry. . NEURO: The patient is awake, alert, and oriented. The patient is cooperative. The patient has no focal neurologic deficits. Normal speech. MUSCULOSKELETAL: There is no tenderness or deformity. There is no evidence of acute injury. <NORMA ROMAN - Last Filed: 11/27/19 06:01> - Physical Exam Vital Signs: Vital Signs 11/27/19 11/27/19 11/27/19 04:26 08:32 15:21 Temperature 98 F 97.3 F L 98.7 F Pulse Rate 74 88 92 H Respiratory 18 18 20 Rate Blood Pressure 126/91 125/73 125/88 [Left] O2 Sat by Pulse 96 100 97 Oximetry 11/27/19 11/27/19 11/28/19 19:33 19:47 01:50 Temperature 98.8 F 98.5 F Pulse Rate 88 62 Respiratory 18 20 18 Rate Blood Pressure 136/102 132/87 [Left] O2 Sat by Pulse 99 97 98 Oximetry 11/28/19 11/28/19 11/28/19 07:30 07:58 14:09 Temperature 98.5 F 98.7 F Pulse Rate 78 83 Respiratory 20 18 18 Rate Blood Pressure 137/88 135/90 [Left] O2 Sat by Pulse 98 98 99 Oximetry <DEVANTE BOLTON - Last Filed: 11/28/19 14:40> ED Course Vital Signs 11/27/19 11/27/19 11/27/19 04:26 08:32 15:21 Temperature 98 F 97.3 F L 98.7 F Pulse Rate 74 88 92 H Respiratory 18 18 20 Rate Blood Pressure 126/91 125/73 125/88 [Left] O2 Sat by Pulse 96 100 97 Oximetry 11/27/19 11/27/19 11/28/19 19:33 19:47 01:50 Temperature 98.8 F 98.5 F Pulse Rate 88 62 Respiratory 18 20 18 Rate Blood Pressure 136/102 132/87 [Left] O2 Sat by Pulse 99 97 98 Oximetry 11/28/19 11/28/19 11/28/19 07:30 07:58 14:09 Temperature 98.5 F 98.7 F Pulse Rate 78 83 Respiratory 20 18 18 Rate Blood Pressure 137/88 135/90 [Left] O2 Sat by Pulse 98 98 99 Oximetry <DEVANTE BOLTON Filed: 11/28/19 14:40> ED Medical Decision Making - Lab Data Result diagrams: 11/27/19 04:29 11/27/19 04:29 - Medical Decision Making This patient presents to the emergency department with suicidal ideations and questionable attempt. Apparently the patient was laying down in the road with the intent of having a car run over her. However she was convinced by her significant other to seek help. The patient does admit to both auditory and visual hallucinations but they are nonspecific. She admits to suicidal ideations. For this reason the patient was made a 1013. Patient's labs are mostly unremarkable except for alcohol intoxication with a blood alcohol level of 0.28. She does have a history of previous alcohol abuse in the past. However despite this alcohol level patient is awake and oriented. The patient's blood alcohol level will obviously decreased over time. Otherwise, the patient appears medically cleared for psychiatric placement. She'll be seen by the psychiatric team in the morning. - Differential Diagnosis bipolar disorder, schizophrenia, schizoaffective, alcohol intoxication <NORMA ROMAN - Last Filed: 11/27/19 06:01> - Lab Data Result diagrams: 11/27/19 04:29 11/27/19 04:29 - Medical Decision Making Patient was seen by mental health assessment team. Patient admits that she was just upset she sat in the road just for several seconds and got out she did not want her boyfriend call 911. Patient is adamant that she is not homicidal or suicidal. Patient's 1013 has been rescinded by mental health staff and the patient be discharged home. Patient has been off of her medications and medications refilled. <DEVANTE BOLTON - Last Filed: 11/28/19 14:40> Critical Care Time: No Critical care attestation.: If time is entered above; I have spent that time in minutes in the direct care of this critically ill patient, excluding procedure time. <NORMA ROMAN - Last Filed: 11/27/19 06:01> Critical care attestation.: If time is entered above; I have spent that time in minutes in the direct care of this critically ill patient, excluding procedure time. <DEVANTE BOLTON Last Filed: 11/28/19 14:40> ED Disposition Is pt being admited?: No Time of Disposition: 06:02 <NORMA ROMAN - Last Filed: 11/27/19 06:01> Is pt being admited?: No Does the pt Need Aspirin: No <DEVANTE BOLTON Last Filed: 11/28/19 14:40> Clinical Impression: Disruptive behavior, Medication refill Disposition: DC-01 TO HOME OR SELFCARE Condition: Stable Prescriptions: FLUoxetine [PROzac] 20 mg PO QDAY #30 capsule risperiDONE [RisperDAL] 0.5 mg PO BID #60 tablet Referrals: PRIMARY CARE, [Primary Care Provider] - 3-5 Days
[2019-11-27 05:03] LABS: Basophils % (Auto) 0.5 % (0.0-1.8); Eosinophils % (Auto) 0.7 % (0.0-4.3); Hematocrit 40.1 % (30.3-42.9); Hemoglobin 13.1 gm/dl (10.1-14.3); Lymphocytes # (Auto) 2.7 K/mm3 (1.2-5.4); Lymphocytes % (Auto) 42.1 % (13.4-35.0); Mean Corpuscular HGB Conc 33 % (30-34); Mean Corpuscular Volume 85 fl (79-97); Monocytes # (Auto) 0.3 K/mm3 (0.0-0.8); Monocytes % (Auto) 5.2 % (0.0-7.3); Platelet Count 207 K/mm3 (140-440); Red Blood Count 4.72 M/mm3 (3.65-5.03); Red Cell Distribution Width 16.8 % (13.2-15.2)
[2019-11-27 05:24] LABS: BUN/Creatinine Ratio 19; Blood Urea Nitrogen 13 mg/dL (7-17); Calcium 9.5 mg/dL (8.4-10.2); Hemolysis Index 3
[2019-11-27 05:47] LABS: Bacteria,Urine 3+ /HPF (Negative); Bilirubin,Urine NEG (Negative); Blood,Urine SM (Negative); Color,Urine Yellow (Yellow); Mucus,Urine 3+ /HPF; Protein,Urine <15 mg/dL mg/dL (Negative); Urobilinogen,Urine < 2.0 mg/dL (<2.0)
[2019-11-27 05:52] LABS: HCG Qualitative,Urine Negative (Negative)
[2019-11-27 06:07] LABS: Amphetamine Screen,Urine PRESUMPTIVE NEGATIVE; Benzodiazepines Screen,Urine PRESUMPTIVE NEGATIVE; Methadone Screen,Urine PRESUMPTIVE NEGATIVE; Opiate Screen,Urine PRESUMPTIVE NEGATIVE
[2019-11-27 06:21] LABS: Cannabinoid Screen,Urine PRESUMPTIVE POSITIVE; Cocaine Screen,Urine PRESUMPTIVE POSITIVE
[2019-11-27] MEDS ORDERED: LORazepam 2 MG/ML VIAL IV PRN (10:44)
[2019-11-27] MEDS ORDERED: LORazepam 2 MG TAB PO PRN (10:44)
[2019-11-27] MEDS: LORazepam 2 MG TAB PO PRN ×2 (10:54→17:30)
[2019-11-27] MEDS ORDERED: ACETAMINOPHEN 325 MG TAB PO ONE (17:22)
[2019-11-28] MEDS: LORazepam 2 MG TAB PO PRN (10:53)
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
[2019-11-28 14:10] VITALS: BP 135/90
== END 2019-11-28 14:45 | disposition home or self-care (01) ==
LOC: ED 04:05 → EEVIPCON 04:05 → ED 11-28 14:45
DX: F32.9 Major depressive disorder, single episode, unspecified (principal); F10.10 Alcohol abuse, uncomplicated; J45.909 Unspecified asthma, uncomplicated; F17.200 Nicotine dependence, unspecified, uncomplicated; F98.8 Other specified behavioral and emotional disorders with onset usually occurring in childhood and adolescence; Z79.899 Other long term (current) drug therapy; Z76.0 Encounter for issue of repeat prescription; Z88.8 Allergy status to other drugs, medicaments and biological substances
CPT/HCPCS: 36415; 80048; 80307; 80320; 81001; 81025; 85025; 87076; 87086; 87186; 99284; G0480

== ENCOUNTER 2020-01-17 10:16 | Emergency (ER) | payer SELFPAY ==
[2020-01-17] MEDS ORDERED: SODIUM CHLORIDE 0.9% 1000 ML 1,000 ML IV ONE ×2 (10:48→12:55)
[2020-01-17] MEDS ORDERED: ONDANSETRON 4 MG/2 ML INJ IV ONE (10:48)
[2020-01-17] MEDS ORDERED: MORPHINE 4 MG/1 ML INJ IV ONE (11:28)
[2020-01-17] MEDS ORDERED: METOCLOPRAMIDE 10 MG/2 ML INJ IV ONE (11:29)
--- NOTE | 2020-01-17 11:32 | Emergency Department Report ---
HPI - General Chief Complaint: Abdominal Pain Time Seen by Provider: 01/17/20 10:42 - HPI HPI: 24-year-old -[place] female presents to the emergency department with complaint of generalized abdominal pain, nausea and vomiting that has been going on since early this morning. The patient says that she has a history of alcoholic pancreatitis and says that she did have a drink of alcohol last night. She also has a past medical history of asthma and depression. She has not taken anything for symptoms prior to presentation. No recent travel or sick contacts at home. She denies any fever, vaginal bleeding or discharge, dysuria. ED Past Medical Hx - Past Medical History Previous Medical History?: Yes Hx Congestive Heart Failure: No Hx Diabetes: No Hx Seizures: Yes Hx Psychiatric Treatment: Yes (for depression, SI) Hx Asthma: Yes Hx COPD: No Additional medical history: Alcoholic pancreatitis - Surgical History Past Surgical History?: Yes Additional Surgical History: foot - Social History Smoking Status: Current Every Day Smoker Substance Use Type: Alcohol - Medications Home Medications: Home Medications Medication Instructions Recorded Confirmed Last Taken Type Nicotine [Habitrol] 21 mg TD QDAY #15 patch 04/25/19 04/30/19 Unknown Rx Oxycodone HCl/Acetaminophen 1 each PO Q6HR PRN #15 tablet 04/25/19 04/30/19 Unknown Rx [Percocet 10/325 mg] Thiamine [Vitamin B-1] 100 mg PO QDAY #30 tablet 04/25/19 04/30/19 Unknown Rx levoFLOXacin [Levaquin TAB] 500 mg PO QDAY #5 tablet 04/25/19 04/30/19 Unknown Rx Ondansetron [Zofran Odt] 4 mg PO Q8HR PRN #20 tab.rapdis 04/30/19 Unknown Rx Promethazine [Phenergan] 25 mg PO Q6HR PRN #30 tab 04/30/19 Unknown Rx Dicyclomine [Bentyl] 10 mg PO QID PRN #40 capsule 05/02/19 Unknown Rx Sucralfate [Carafate] 1 gm PO ACHS 7 Days #28 tablet 05/02/19 Unknown Rx FLUoxetine [PROzac] 20 mg PO QDAY #30 capsule 11/28/19 Unknown Rx risperiDONE [RisperDAL] 0.5 mg PO BID #60 tablet 11/28/19 Unknown Rx Ondansetron [Zofran Odt] 4 mg PO Q8HR PRN #15 tab.rapdis 01/17/20 Unknown Rx ED Review of Systems ROS: Stated complaint: STOMACH PAIN/N/PANCREATITIS Other details as noted in HPI Comment: All other systems reviewed and negative Constitutional: denies: chills, fever Eyes: denies: eye pain, vision change ENT: denies: ear pain, throat pain Respiratory: denies: cough, shortness of breath Cardiovascular: denies: chest pain, palpitations Gastrointestinal: abdominal pain, nausea, vomiting Genitourinary: denies: dysuria, discharge Musculoskeletal: denies: back pain, arthralgia Skin: denies: rash, lesions Neurological: denies: headache, weakness Physical Exam - Physical Exam Vital Signs: Vital Signs 01/17/20 10:23 Temperature 97.8 F Pulse Rate 102 H Respiratory 24 Rate Blood Pressure 149/105 O2 Sat by Pulse 99 Oximetry Physical Exam: GENERAL: The patient is well-developed well-nourished. HENT: Normocephalic. Atraumatic. Patient has moist mucous membranes. EYES: Extraocular motions are intact. NECK: Supple. Trachea is midline. CHEST/LUNGS: Clear to auscultation. There is no respiratory distress noted. HEART/CARDIOVASCULAR: Regular. There is no tachycardia. ABDOMEN: Abdomen is soft. There is some left upper quadrant abdominal tenderness to palpation. No guarding. Patient has normal bowel sounds. There is no abdominal distention. SKIN: Skin is warm and dry. NEURO: The patient is awake, alert, and oriented. The patient is cooperative. The patient has no focal neurologic deficits. Normal speech. MUSCULOSKELETAL: There is no tenderness or deformity. There is no evidence of acute injury. ED Course Vital Signs 01/17/20 10:23 Temperature 97.8 F Pulse Rate 102 H Respiratory 24 Rate Blood Pressure 149/105 O2 Sat by Pulse 99 Oximetry ED Medical Decision Making - Lab Data Result diagrams: 01/17/20 10:55 01/17/20 10:55 - Radiology Data Radiology results: report reviewed, image reviewed interpreted by me: Abdominal x-ray shows nonspecific nonobstructive bowel gas ULTRASOUND ABDOMEN, LIMITED (RIGHT UPPER QUADRANT) INDICATION: upper abd pain, hx of pancreatitis. COMPARISON: Complete abdominal ultrasound from 05/02/2019. FINDINGS: Pancreas: Visualized portion shows no significant abnormality. Liver: Normal in size with generalized increased echotexture, consistent with steatosis. No additional significant abnormality. Gallbladder: No significant abnormality. Sonographic Streeter's sign: Not performed. Bile ducts: No significant abnormality. Common Bile Duct measures 6.1 mm. Free fluid: None. Additional Findings: None. IMPRESSION: 1. Hepatic steatosis. 2. No additional significant sonographic abnormality of the right upper quadrant. - Medical Decision Making This patient presents to the emergency department with complaint of upper abdominal pain, nausea and vomiting since drinking alcohol last night. She has a history of alcoholic pancreatitis. Her blood alcohol level at about 11 AM was 0.14. The rest the patient's labs were unremarkable including a normal lipase level. Abdominal ultrasound was done that shows some hepatic steatosis but no signs of any pancreatitis in the visualized portion of the pancreas. Abdominal x-ray does not show any signs of obstruction or any other acute process. Vital signs stable throughout her ED course including being afebrile. The patient was given doses of antiemetics and 1 dose of IV pain medication and appears to be improved. The only lab abnormality found was a decreased bicarb level most likely consistent with dehydration. The patient was given 2 L of IV fluid resuscitation and afterwards was able to pass an oral challenge. She will be discharged home with antiemetics and referral for gastroenterology. She will return to the ER with any worsening of her symptoms or any acute distress. - Differential Diagnosis Gastritis, pancreatitis, hepatitis, food poisoning Critical Care Time: No Critical care attestation.: If time is entered above; I have spent that time in minutes in the direct care of this critically ill patient, excluding procedure time. ED Disposition Clinical Impression: Dehydration, Alcohol abuse Abdominal pain Qualifiers: Abdominal location: upper abdomen, unspecified Qualified Code(s): R10.10 - Upper abdominal pain, unspecified Nausea & vomiting Qualifiers: Vomiting type: unspecified Vomiting Intractability: non-intractable Qualified Code(s): R11.2 - Nausea with vomiting, unspecified Disposition: DC-01 TO HOME OR SELFCARE Is pt being admited?: No Condition: Stable Instructions: Dehydration (ED), Abuse of Alcohol (ED), Acute Nausea and Vomiting (ED), Abdominal Pain (ED) Additional Instructions: Please avoid any further alcohol use/abuse. Return to the emergency department with any worsening of your symptoms or any acute distress. Increase your oral rehydration. I am giving you a referral for a local gastroenterology group to follow-up regarding your abdominal pains. Prescriptions: Ondansetron [Zofran Odt] 4 mg PO Q8HR PRN #15 tab.rapdis PRN Reason: Nausea Referrals: [facility] [Provider Group] - 2-3 Days Time of Disposition: 14:09
[2020-01-17 11:34] LABS: Basophils % (Auto) 0.7 % (0.0-1.8); Eosinophils % (Auto) 0.5 % (0.0-4.3); Hematocrit 39.1 % (30.3-42.9); Hemoglobin 13.3 gm/dl (10.1-14.3); Lymphocytes # (Auto) 2.2 K/mm3 (1.2-5.4); Lymphocytes % (Auto) 35.8 % (13.4-35.0); Mean Corpuscular HGB Conc 34 % (30-34); Mean Corpuscular Volume 84 fl (79-97); Monocytes # (Auto) 0.4 K/mm3 (0.0-0.8); Red Blood Count 4.68 M/mm3 (3.65-5.03); Red Cell Distribution Width 16.6 % (13.2-15.2)
[2020-01-17 11:35] LABS: Platelet Count 205 K/mm3 (140-440)
[2020-01-17 12:16] LABS: Alanine Aminotransferase 9 units/L (7-56); Albumin 4.7 g/dL (3.9-5); BUN/Creatinine Ratio 21; Blood Urea Nitrogen 17 mg/dL (7-17); Calcium 9.6 mg/dL (8.4-10.2); Hemolysis Index 16
[2020-01-17 12:29] LABS: Bilirubin,Direct < 0.2 mg/dL (0-0.2)
--- NOTE | 2020-01-17 12:44 | Ultrasound Report ---
ULTRASOUND ABDOMEN, LIMITED (RIGHT UPPER QUADRANT) INDICATION: upper abd pain, hx of pancreatitis. COMPARISON: Complete abdominal ultrasound from 05/02/2019. FINDINGS: Pancreas: Visualized portion shows no significant abnormality. Liver: Normal in size with generalized increased echotexture, consistent with steatosis. No additiona l significant abnormality. Gallbladder: No significant abnormality. Sonographic Streeter's sign: Not performed. Bile ducts: No significant abnormality. Common Bile Duct measures 6.1 mm. Free fluid: None. Additional Findings: None. IMPRESSION: 1. Hepatic steatosis. 2. No additional significant sonographic abnormality of the right upper quadrant. Signer Name: Kip Philippe MD Signed: 01/17/2020 12:40 PM Workstation Name: [id number]
--- NOTE | 2020-01-17 14:05 | XRay Report ---
ABDOMEN 2 VIEWS INDICATION / CLINICAL INFORMATION: Abd pain. COMPARISON: None available. FINDINGS: The lower portion of the pelvis is not included on this exam. Bowel gas pattern appears to be normal without evidence of obstruction Signer Name: Wilberto Cardona MD FACR Signed: 01/17/2020 2:01 PM Workstation Name: [id number]
[2020-01-17 14:43] VITALS: BP 135/76
== END 2020-01-17 14:43 | disposition home or self-care (01) ==
LOC: ED 10:16
DX: E86.0 Dehydration (principal); R10.84 Generalized abdominal pain; R11.2 Nausea with vomiting, unspecified; R56.9 Unspecified convulsions; F10.10 Alcohol abuse, uncomplicated; F32.9 Major depressive disorder, single episode, unspecified; J45.909 Unspecified asthma, uncomplicated; K86.0 Alcohol-induced chronic pancreatitis; F17.200 Nicotine dependence, unspecified, uncomplicated; Z98.890 Other specified postprocedural states; Z79.899 Other long term (current) drug therapy; Z91.013 Allergy to seafood; Z91.018 Allergy to other foods; Z88.8 Allergy status to other drugs, medicaments and biological substances
CPT/HCPCS: 36415; 74019; 76705; 80048; 80076; 83690; 84703; 85025; 96361; 96374; 96375; 99284; J2270; J2405; J2765; J7030; 80320; G0480

== ENCOUNTER 2020-02-05 15:28 | Emergency (ER) | payer SELFPAY ==
[2020-02-05] MEDS ORDERED: HYOSCYAMINE SUBL 0.125 MG TAB SL ONE (16:21)
[2020-02-05] MEDS ORDERED: SODIUM CHLORIDE 0.9% 1000 ML 2,000 ML IV ONE (16:21)
[2020-02-05] MEDS ORDERED: ONDANSETRON 4 MG/2 ML INJ IV STA (16:21)
[2020-02-05] MEDS ORDERED: fentaNYL 100 MCG/2 ML INJ IV STA (16:22)
[2020-02-05] MEDS ORDERED: FAMOTIDINE 20 MG/2 ML INJ IV ONE (16:24)
--- NOTE | 2020-02-05 16:26 | Emergency Department Report ---
ED Abdominal Pain HPI - General Chief Complaint: Abdominal Pain Stated Complaint: ABD PAIN Time Seen by Provider: 02/05/20 16:16 Source: patient Mode of arrival: Wheelchair Limitations: No Limitations - History of Present Illness Initial Comments: 24-year-old -[place] female with past medical history of asthma, depression, recurrent alcoholic induced pancreatitis and and current continued alcoholism presents emergency department complaining of another emergence of abdomen abdominal pain with associated nausea and vomiting went to alcohol abu se. She had drank a pint and a half this morning and a few hours following she began to develop this abdominal pain. She states that she has improved her drinking from every day heavily to every other day heavily. She reports no hemoptysis no hematemesis no hematochezia. No fevers chills or sweats no dysuria. - Related Data Previous Rx's Medication Instructions Recorded Last Taken Type Nicotine [Habitrol] 21 mg TD QDAY #15 patch 04/25/19 Unknown Rx Oxycodone HCl/Acetaminophen 1 each PO Q6HR PRN #15 tablet 04/25/19 Unknown Rx [Percocet 10/325 mg] Thiamine [Vitamin B-1] 100 mg PO QDAY #30 tablet 04/25/19 Unknown Rx levoFLOXacin [Levaquin TAB] 500 mg PO QDAY #5 tablet 04/25/19 Unknown Rx Ondansetron [Zofran Odt] 4 mg PO Q8HR PRN #20 tab.rapdis 04/30/19 Unknown Rx Promethazine [Phenergan] 25 mg PO Q6HR PRN #30 tab 04/30/19 Unknown Rx Dicyclomine [Bentyl] 10 mg PO QID PRN #40 capsule 05/02/19 Unknown Rx Sucralfate [Carafate] 1 gm PO ACHS 7 Days #28 tablet 05/02/19 Unknown Rx FLUoxetine [PROzac] 20 mg PO QDAY #30 capsule 11/28/19 Unknown Rx risperiDONE [RisperDAL] 0.5 mg PO BID #60 tablet 11/28/19 Unknown Rx Ondansetron [Zofran Odt] 4 mg PO Q8HR PRN #15 tab.rapdis 01/17/20 Unknown Rx Omeprazole 40 mg PO DAILY #20 capsule. 02/05/20 Unknown Rx Allergies Allergy/AdvReac Type Severity Reaction Status Date / Time apple Allergy Itching Verified 04/30/19 09:22 Fish Containing Products Allergy Itching Verified 04/30/19 09:22 hydromorphone [From Dilaudid] Allergy Itching Verified 11/27/19 04:33 ED Review of Systems ROS: Stated complaint: ABD PAIN Other details as noted in HPI Comment: All other systems reviewed and negative ED Past Medical Hx - Past Medical History Previous Medical History?: Yes Hx Congestive Heart Failure: No Hx Diabetes: No Hx Seizures: Yes Hx Psychiatric Treatment: Yes (for depression, SI) Hx Asthma: Yes Hx COPD: No Additional medical history: Alcoholic pancreatitis - Surgical History Past Surgical History?: Yes Additional Surgical History: foot - Social History Smoking Status: Never Smoker Substance Use Type: None - Medications Home Medications: Home Medications Medication Instructions Recorded Confirmed Last Taken Type Nicotine [Habitrol] 21 mg TD QDAY #15 patch 04/25/19 04/30/19 Unknown Rx Oxycodone HCl/Acetaminophen 1 each PO Q6HR PRN #15 tablet 04/25/19 04/30/19 Unknown Rx [Percocet 10/325 mg] Thiamine [Vitamin B-1] 100 mg PO QDAY #30 tablet 04/25/19 04/30/19 Unknown Rx levoFLOXacin [Levaquin TAB] 500 mg PO QDAY #5 tablet 04/25/19 04/30/19 Unknown Rx Ondansetron [Zofran Odt] 4 mg PO Q8HR PRN #20 tab.rapdis 04/30/19 Unknown Rx Promethazine [Phenergan] 25 mg PO Q6HR PRN #30 tab 04/30/19 Unknown Rx Dicyclomine [Bentyl] 10 mg PO QID PRN #40 capsule 05/02/19 Unknown Rx Sucralfate [Carafate] 1 gm PO ACHS 7 Days #28 tablet 05/02/19 Unknown Rx FLUoxetine [PROzac] 20 mg PO QDAY #30 capsule 11/28/19 Unknown Rx risperiDONE [RisperDAL] 0.5 mg PO BID #60 tablet 11/28/19 Unknown Rx Ondansetron [Zofran Odt] 4 mg PO Q8HR PRN #15 tab.rapdis 01/17/20 Unknown Rx Omeprazole 40 mg PO DAILY #20 rosey. 02/05/20 Unknown Rx ED Physical Exam - General Limitations: No Limitations General appearance: alert, other (Appears to be uncomfortable but nontoxic. Patient is standing at the sink drinking water out of the faucet complaining of nausea) - Head Head exam: Present: atraumatic, normocephalic - Eye Eye exam: Present: normal appearance, PERRL, EOMI. Absent: scleral icterus, conjunctival injection Pupils: Present: normal accommodation - ENT ENT exam: Present: mucous membranes moist - Neck Neck exam: Present: normal inspection - Respiratory Respiratory exam: Present: normal lung sounds bilaterally. Absent: respiratory distress - Cardiovascular Cardiovascular Exam: Present: regular rate, normal rhythm. Absent: systolic murmur, diastolic murmur, rubs, gallop - GI/Abdominal GI/Abdominal exam: Present: soft, tenderness, normal bowel sounds. Absent: rebound, hyperactive bowel sounds, hypoactive bowel sounds, organomegaly, mass, bruit, pulsatile mass - Extremities Exam Extremities exam: Present: normal inspection - Back Exam Back exam: Present: normal inspection. Absent: CVA tenderness (R), CVA tenderness (L) - Neurological Exam Neurological exam: Present: alert, oriented X3, CN II-XII intact, normal gait - Psychiatric Psychiatric exam: Present: normal affect, normal mood - Skin Skin exam: Present: warm, dry, intact, normal color. Absent: rash ED Course Vital Signs 02/05/20 15:37 Temperature 98 F Pulse Rate 98 H Respiratory 16 Rate O2 Sat by Pulse 96 Oximetry ED Medical Decision Making - Lab Data Result diagrams: 02/05/20 16:49 02/05/20 16:49 Lab Results 02/05/20 02/05/20 02/05/20 Range/Units 16:49 16:49 Unknown WBC 9.2 (4.5-11.0) K/mm3 RBC 4.87 (3.65-5.03) M/mm3 Hgb 13.5 (10.1-14.3) gm/dl Hct 40.7 (30.3-42.9) % MCV 84 (79-97) fl MCH 28 (28-32) pg MCHC 33 (30-34) % RDW 16.0 H (13.2-15.2) % Plt Count 178 (140-440) K/mm3 Lymph % (Auto) 10.2 L (13.4-35.0) % Motley % (Auto) 1.8 (0.0-7.3) % Eos % (Auto) 0.1 (0.0-4.3) % Baso % (Auto) 0.9 (0.0-1.8) % Lymph # 0.9 L (1.2-5.4) K/mm3 Motley # 0.2 (0.0-0.8) K/mm3 Eos # 0.0 (0.0-0.4) K/mm3 Baso # 0.1 (0.0-0.1) K/mm3 Seg Neutrophils % 87.0 H (40.0-70.0) % Seg Neutrophils # 8.0 H (1.8-7.7) K/mm3 Sodium 139 (137-145) mmol/L Potassium 4.2 (3.6-5.0) mmol/L Chloride 100.4 (98-107) mmol/L Carbon Dioxide 15 L (22-30) mmol/L Anion Gap 28 mmol/L BUN 16 (7-17) mg/dL Creatinine 0.8 (0.7-1.2) mg/dL Estimated GFR > 60 ml/min BUN/Creatinine Ratio 20 % Glucose 96 (65-100) mg/dL Calcium 9.9 (8.4-10.2) mg/dL Total Bilirubin 0.50 (0.1-1.2) mg/dL AST 22 (5-40) units/L ALT 12 (7-56) units/L Alkaline Phosphatase 72 (35-129) units/L Total Protein 8.7 H (6.3-8.2) g/dL Albumin 4.9 (3.9-5) g/dL Albumin/Globulin Ratio 1.3 % Lipase 11 L (13-60) units/L Urine Color Yellow (Yellow) Urine Turbidity Slightly-cloudy (Clear) Urine pH 5.0 (5.0-7.0) Ur Specific [place] 1.027 (1.003-1.030) Urine Protein 30 mg/dl (Negative) mg/dL Urine Glucose (UA) Neg (Negative) mg/dL Urine Ketones 20 (Negative) mg/dL Urine Blood Neg (Negative) Urine Nitrite Neg (Negative) Urine Bilirubin Neg (Negative) Urine Urobilinogen < 2.0 (<2.0) mg/dL Ur Leukocyte Esterase Neg (Negative) Urine WBC (Auto) 6.0 (0.0-6.0) /HPF Urine RBC (Auto) 1.0 (0.0-6.0) /HPF U Epithel Cells (Auto) 3.0 (0-13.0) /HPF Urine Bacteria (Auto) 1+ (Negative) /HPF Urine Mucus 3+ /HPF Urine HCG, Qual Negative (Negative) - Medical Decision Making This patient presents with abdominal pain of unclear etiology. Labs were performed to evaluate for potential causes of the abdominal pain, however, neither the clinical exam nor the labs has identified an emergent etiology for the abdominal pain. Ms. Salmeron reports having a recurrent issue with alcoholic pancreatitis and admits to to drinking a pint and a half this morning that preceded her symptoms however all of the labs were normal. Her symptoms significantly improve with the medication given. She is a symptomatic at current talking on cell phone no acute distress. Specifically, given the benign exam, the laboratory studies were unremarkable. I have a very low suspicion for appendicitis, ischemic bowel, bowel perforation, or any other life threatening d isease. I have discussed with the patient the level of uncertainty with undifferentiated abdominal pain and clearly explained the need to follow-up as noted on the discharge instructions, or return to the Emergency Department immediately if the pain worsens, develops fever, persistent and uncontrollable vomiting, or for any new symptoms or concerns. Educated Ms. Salmeron on the need to decrease the alcohol abuse and the need to follow-up with GI for definitive treatment and evaluation of this condition. Also advised her on some substance abuse locations to help with her alcoholism Critical care attestation.: If time is entered above; I have spent that time in minutes in the direct care of this critically ill patient, excluding procedure time. ED Disposition Clinical Impression: Alcohol abuse, Abdominal pain Disposition: - TO HOME OR SELFCARE Is pt being admited?: No Does the pt Need Aspirin: No Condition: Stable Instructions: Abdominal Pain (ED), Gastritis (ED), Diet for Ulcers and Gas tritis (ED) Prescriptions: Omeprazole 40 mg PO DAILY #20 capsule. Referrals: EUGENIE HARRELLASHLEY MD [facility] [Primary Care Provider] - 3-5 Days [facility] [Provider Group] - 3-5 Days
[2020-02-05 17:00] LABS: Basophils # (Auto) 0.1 K/mm3 (0.0-0.1); Basophils % (Auto) 0.9 % (0.0-1.8); Eosinophils % (Auto) 0.1 % (0.0-4.3); Hematocrit 40.7 % (30.3-42.9); Hemoglobin 13.5 gm/dl (10.1-14.3); Lymphocytes # (Auto) 0.9 K/mm3 (1.2-5.4); Lymphocytes % (Auto) 10.2 % (13.4-35.0); Mean Corpuscular HGB Conc 33 % (30-34); Mean Corpuscular Volume 84 fl (79-97); Monocytes # (Auto) 0.2 K/mm3 (0.0-0.8); Monocytes % (Auto) 1.8 % (0.0-7.3); Platelet Count 178 K/mm3 (140-440); Red Blood Count 4.87 M/mm3 (3.65-5.03)
[2020-02-05 17:23] LABS: Alanine Aminotransferase 12 units/L (7-56); Albumin 4.9 g/dL (3.9-5); BUN/Creatinine Ratio 20; Blood Urea Nitrogen 16 mg/dL (7-17); Calcium 9.9 mg/dL (8.4-10.2); Hemolysis Index 5
[2020-02-05 18:25] LABS: Bacteria,Urine 1+ /HPF (Negative); Bilirubin,Urine NEG (Negative); Blood,Urine NEG (Negative); Color,Urine Yellow (Yellow); Mucus,Urine 3+ /HPF; Urobilinogen,Urine < 2.0 mg/dL (<2.0)
[2020-02-05 18:26] LABS: HCG Qualitative,Urine Negative (Negative)
[2020-02-05 20:48] VITALS: BP 121/67
== END 2020-02-05 19:20 | disposition home or self-care (01) ==
LOC: ED 15:28
DX: F10.10 Alcohol abuse, uncomplicated (principal); R10.9 Unspecified abdominal pain; R11.2 Nausea with vomiting, unspecified; R56.9 Unspecified convulsions; F32.9 Major depressive disorder, single episode, unspecified; J45.909 Unspecified asthma, uncomplicated; Z98.890 Other specified postprocedural states; Z79.899 Other long term (current) drug therapy; Z91.013 Allergy to seafood; Z91.018 Allergy to other foods; Z88.8 Allergy status to other drugs, medicaments and biological substances
CPT/HCPCS: 36415; 80053; 81001; 81025; 83690; 85025; 96361; 96374; 96375; 99284; J2405; J3010; J7030

== ENCOUNTER 2020-05-12 03:31 | Emergency (ER) | payer SELFPAY ==
[2020-05-12 04:50] LABS: Basophils % (Auto) 1.1 % (0.0-1.8); Eosinophils # (Auto) 0.1 K/mm3 (0.0-0.4); Eosinophils % (Auto) 1.4 % (0.0-4.3); Hematocrit 41.7 % (30.3-42.9); Hemoglobin 13.9 gm/dl (10.1-14.3); Lymphocytes # (Auto) 1.5 K/mm3 (1.2-5.4); Lymphocytes % (Auto) 38.7 % (13.4-35.0); Mean Corpuscular HGB Conc 33 % (30-34); Mean Corpuscular Volume 89 fl (79-97); Monocytes # (Auto) 0.5 K/mm3 (0.0-0.8); Monocytes % (Auto) 11.7 % (0.0-7.3); Platelet Count 105 K/mm3 (140-440); Red Cell Distribution Width 18.2 % (13.2-15.2)
[2020-05-12 05:12] LABS: BUN/Creatinine Ratio 16; Blood Urea Nitrogen 11 mg/dL (7-17); Calcium 9.2 mg/dL (8.4-10.2); Hemolysis Index 27
[2020-05-12 13:07] LABS: Alanine Aminotransferase 45 units/L (7-56); Albumin 4.8 g/dL (3.9-5)
[2020-05-12 13:20] LABS: Bilirubin,Direct < 0.2 mg/dL (0-0.2)
[2020-05-12] MEDS ORDERED: ONDANSETRON 4 MG ODT TAB PO STA (13:28)
[2020-05-12] MEDS ORDERED: HYOSCYAMINE SUBL 0.125 MG TAB SL ONE (13:28)
--- NOTE | 2020-05-12 14:24 | Emergency Department Report ---
ED Abdominal Pain HPI - General Chief Complaint: GI Bleed Stated Complaint: EMESIS/BLOOD/DIZZINESS Time Seen by Provider: 05/12/20 13:28 Source: patient Mode of arrival: Ambulatory Limitations: No Limitations - History of Present Illness Initial Comments: 24-year-old -Portuguese female presents emergency department complaining of nausea with an single episode of vomiting on yesterday which she reports her boyfriend stated he thinks he may have seen some blood in the emesis. The patient states she did not taste any blurred know that she have a history of having any hematemesis she would does report a history of alcoholism when she consumes nearly 1 pint of alcohol per day and has a history of pancreatitis. States that she did begin to have some nausea and abdominal discomfort on yesterday prior to the vomiting episode but at this point has vague aches and pains to the abdomen off and on. Reports no fevers, chills, sweats no chest pain or palpitations no hemoptysis no hematochezia. Location: diffuse Radiation: none Severity: mild Consistency: constant Improves With: nothing Worsens With: nothing Associated Symptoms: denies other symptoms. denies: fever, constipation, dysuria, melena, anorexia, syncope - Related Data Previous Rx's Medication Instructions Recorded Last Taken Type Nicotine [Habitrol] 21 mg TD QDAY #15 patch 04/25/19 Unknown Rx Oxycodone HCl/Acetaminophen 1 each PO Q6HR PRN #15 tablet 04/25/19 Unknown Rx [Percocet 10/325 mg] Thiamine [Vitamin B-1] 100 mg PO QDAY #30 tablet 04/25/19 Unknown Rx levoFLOXacin [Levaquin TAB] 500 mg PO QDAY #5 tablet 04/25/19 Unknown Rx Ondansetron [Zofran Odt] 4 mg PO Q8HR PRN #20 tab.rapdis 04/30/19 Unknown Rx Promethazine [Phenergan] 25 mg PO Q6HR PRN #30 tab 04/30/19 Unknown Rx Dicyclomine [Bentyl] 10 mg PO QID PRN #40 capsule 05/02/19 Unknown Rx Sucralfate [Carafate] 1 gm PO ACHS 7 Days #28 tablet 05/02/19 Unknown Rx FLUoxetine [PROzac] 20 mg PO QDAY #30 capsule 11/28/19 Unknown Rx risperiDONE [RisperDAL] 0.5 mg PO BID #60 tablet 11/28/19 Unknown Rx Ondansetron [Zofran Odt] 4 mg PO Q8HR PRN #15 tab.rapdis 01/17/20 Unknown Rx Omeprazole 40 mg PO DAILY #20 capsule. 02/05/20 Unknown Rx Hyoscyamine Subl [Levsin Sl 0.125 0.125 mg PO Q6HR #14 tablet 05/12/20 Unknown Rx TAB] Ondansetron (Nf) [Zofran TAB] 8 mg PO Q8HR #14 tablet 05/12/20 Unknown Rx Allergies Allergy/AdvReac Type Severity Reaction Status Date / Time apple Allergy Itching Verified 04/30/19 09:22 Fish Containing Products Allergy Itching Verified 04/30/19 09:22 hydromorphone [From Dilaudid] Allergy Itching Verified 11/27/19 04:33 ED Review of Systems ROS: Stated complaint: EMESIS/BLOOD/DIZZINESS Other details as noted in HPI Comment: All other systems reviewed and negative ED Past Medical Hx - Past Medical History Previous Medical History?: Yes Hx Congestive Heart Failure: No Hx Diabetes: No Hx Seizures: Yes Hx Psychiatric Treatment: Yes (for depression, SI) Hx Asthma: Yes Hx COPD: No Additional medical history: Alcoholic pancreatitis - Surgical History Past Surgical History?: Yes Additional Surgical History: foot - Social History Smoking Status: Current Every Day Smoker Substance Use Type: Alcohol, Marijuana - Medications Home Medications: Home Medications Medication Instructions Recorded Confirmed Last Taken Type Nicotine [Habitrol] 21 mg TD QDAY #15 patch 04/25/19 04/30/19 Unknown Rx Oxycodone HCl/Acetaminophen 1 each PO Q6HR PRN #15 tablet 04/25/19 04/30/19 Unknown Rx [Percocet 10/325 mg] Thiamine [Vitamin B-1] 100 mg PO QDAY #30 tablet 04/25/19 04/30/19 Unknown Rx levoFLOXacin [Levaquin TAB] 500 mg PO QDAY #5 tablet 04/25/19 04/30/19 Unknown Rx Ondansetron [Zofran Odt] 4 mg PO Q8HR PRN #20 tab.rapdis 04/30/19 Unknown Rx Promethazine [Phenergan] 25 mg PO Q6HR PRN #30 tab 04/30/19 Unknown Rx Dicyclomine [Bentyl] 10 mg PO QID PRN #40 capsule 05/02/19 Unknown Rx Sucralfate [Carafate] 1 gm PO ACHS 7 Days #28 tablet 05/02/19 Unknown Rx FLUoxetine [PROzac] 20 mg PO QDAY #30 capsule 11/28/19 Unknown Rx risperiDONE [RisperDAL] 0.5 mg PO BID #60 tablet 11/28/19 Unknown Rx Ondansetron [Zofran Odt] 4 mg PO Q8HR PRN #15 tab.rapdis 01/17/20 Unknown Rx Omeprazole 40 mg PO DAILY #20 capsule.dr 02/05/20 Unknown Rx Hyoscyamine Subl [Levsin Sl 0.125 0.125 mg PO Q6HR #14 tablet 05/12/20 Unknown Rx TAB] Ondansetron (Nf) [Zofran TAB] 8 mg PO Q8HR #14 tablet 05/12/20 Unknown Rx ED Physical Exam - General Limitations: No Limitations General appearance: alert, in no apparent distress - Head Head exam: Present: atraumatic, normocephalic - Eye Eye exam: Present: normal appearance, PERRL, EOMI - ENT ENT exam: Present: mucous membranes moist - Neck Neck exam: Present: normal inspection - Respiratory Respiratory exam: Present: normal lung sounds bilaterally. Absent: respiratory distress - Cardiovascular Cardiovascular Exam: Present: regular rate, normal rhythm. Absent: systolic murmur, diastolic murmur, rubs, gallop - GI/Abdominal GI/Abdominal exam: Present: soft, normal bowel sounds - Extremities Exam Extremities exam: Present: normal inspection - Back Exam Back exam: Present: normal inspection - Neurological Exam Neurological exam: Present: alert, oriented X3 - Psychiatric Psychiatric exam: Present: normal affect, normal mood - Skin Skin exam: Present: warm, dry, intact, normal color. Absent: rash ED Course Vital Signs 05/12/20 05/12/20 03:45 11:17 Temperature 98.4 F Pulse Rate 84 Respiratory 18 18 Rate Blood Pressure 119/86 O2 Sat by Pulse 95 99 Oximetry ED Medical Decision Making - Lab Data Result diagrams: 05/12/20 03:50 05/12/20 03:50 Lab Results 05/12/20 05/12/20 05/12/20 Range/Units 03:50 03:50 12:06 WBC 3.9 L (4.5-11.0) K/mm3 RBC 4.70 (3.65-5.03) M/mm3 Hgb 13.9 (10.1-14.3) gm/dl Hct 41.7 (30.3-42.9) % MCV 89 (79-97) fl MCH 30 (28-32) pg MCHC 33 (30-34) % RDW 18.2 H (13.2-15.2) % Plt Count 105 L (140-440) K/mm3 Lymph % (Auto) 38.7 H (13.4-35.0) % [place] % (Auto) 11.7 H (0.0-7.3) % Eos % (Auto) 1.4 (0.0-4.3) % Baso % (Auto) 1.1 (0.0-1.8) % Lymph # 1.5 (1.2-5.4) K/mm3 [place] # 0.5 (0.0-0.8) K/mm3 Eos # 0.1 (0.0-0.4) K/mm3 Baso # 0.0 (0.0-0.1) K/mm3 Seg Neutrophils % 47.1 (40.0-70.0) % Seg Neutrophils # 1.8 (1.8-7.7) K/mm3 Sodium 138 (137-145) mmol/L Potassium 4.0 (3.6-5.0) mmol/L Chloride 60.0 L (98-107) mmol/L Carbon Dioxide 17 L (22-30) mmol/L Anion Gap 65 mmol/L BUN 11 (7-17) mg/dL Creatinine < 0.2 L (0.7-1.2) mg/dL Estimated GFR > 60 ml/min BUN/Creatinine Ratio 16 % Glucose 67 (65-100) mg/dL Calcium 9.2 (8.4-10.2) mg/dL Total Bilirubin 0.90 (0.1-1.2) mg/dL Direct Bilirubin < 0.2 (0-0.2) mg/dL Indirect Bilirubin 0.7 mg/dL AST 74 H (5-40) units/L ALT 45 (7-56) units/L Alkaline Phosphatase 49 (35-129) units/L Total Protein 8.3 H (6.3-8.2) g/dL Albumin 4.8 (3.9-5) g/dL Albumin/Globulin Ratio 1.4 % Lipase 62 H (13-60) units/L - Medical Decision Making This patient presents with abdominal pain of unclear etiology. Their evaluation has not identified a emergent etiology for the abdominal pain. Specifically, given the very benign exam, normal laboratory studies, and lack of significant risk factors, I have a very low suspicion for appendicitis, ischemic bowel, bowel perforation, or any other life threatening disease. I have discussed with the patient the level of uncertainty with undifferentiated abdominal pain and clearly explained the need to follow-up as noted on the discharge instructions, or return to the Emergency Department immediately if the pain worsens, develops fever, persistent and uncontrollable vomiting, or for any new symptoms or concerns. I discussed with the patient that this presentation today for abdominal pain could represent a significant risk for an acute abdominal process. Although the tests in the ED were essentially normal, there is still a possibility of a process such as appendicitis, diverticulitis, cholecystitis, ulcer, early bowel obstruction, mesenteric ischemia, kidney stone, or even kidney infection which could subsequently cause disability or . The patient understands that they must return within 24 hours for a recheck or see their physician within 24 hours for re-exam due to the possibility of significant surgical or medical process. Critical care attestation.: If time is entered above; I have spent that time in minutes in the direct care of this critically ill patient, excluding procedure time. ED Disposition Clinical Impression: Abdominal pain, Nausea & vomiting, Alcoholism Is pt being admited?: No Does the pt Need Aspirin: No Condition: Stable Instructions: Acute Nausea and Vomiting (ED), Alcohol Intoxication (ED), Abdominal Pain (ED) Prescriptions: Hyoscyamine Subl [Levsin Sl 0.125 TAB] 0.125 mg PO Q6HR #14 tablet Ondansetron (Nf) [Zofran TAB] 8 mg PO Q8HR #14 tablet Referrals: CAROLINA MONDRAGON MD [Primary Care Provider] - 3-5 Days [facility] [Provider Group] - 3-5 Days
[2020-05-12 15:32] VITALS: BP 137/93
== END 2020-05-12 15:35 ==
LOC: ED 03:31
DX: R10.84 Generalized abdominal pain (principal); R11.2 Nausea with vomiting, unspecified; F10.20 Alcohol dependence, uncomplicated; J45.909 Unspecified asthma, uncomplicated; F17.200 Nicotine dependence, unspecified, uncomplicated; F12.10 Cannabis abuse, uncomplicated; F32.89 Other specified depressive episodes; Z79.899 Other long term (current) drug therapy; Z88.6 Allergy status to analgesic agent; Z91.013 Allergy to seafood; Z91.018 Allergy to other foods
CPT/HCPCS: 36415; 80048; 80076; 83690; 85025; 99283; Q0162

== ENCOUNTER 2020-07-21 04:30 | Emergency (ER) | payer SELFPAY ==
[2020-07-21 05:32] LABS: Hematocrit 40.9 % (30.3-42.9); Hemoglobin 13.3 gm/dl (10.1-14.3); Mean Corpuscular HGB Conc 33 % (30-34); Mean Corpuscular Volume 91 fl (79-97); Platelet Count 156 K/mm3 (140-440); Red Blood Count 4.49 M/mm3 (3.65-5.03); Red Cell Distribution Width 15.8 % (13.2-15.2)
[2020-07-21 05:45] LABS: BUN/Creatinine Ratio 13; Blood Urea Nitrogen 12 mg/dL (7-17); Calcium 8.8 mg/dL (8.4-10.2); Hemolysis Index 9
[2020-07-21 06:30] LABS: Eosinophils % (Manual) 0 % (0.0-4.3); Total Cells Counted 100
[2020-07-21 06:31] LABS: Large Platelets Few; Platelet Estimate Consistent w Auto; RBC Morphology Normal
[2020-07-21] MEDS ORDERED: levETIRAcetam 1000 MG/NS 0.75% 1,000 MG/100 ML BAG IV ONE (08:59)
[2020-07-21] MEDS ORDERED: SODIUM CHLORIDE 0.9% 1000 ML 1,000 ML IV ONE (08:59)
[2020-07-21] MEDS ORDERED: LORazepam 2 MG/ML VIAL IV ONE (08:59)
--- NOTE | 2020-07-21 09:12 | Emergency Department Report ---
ED Seizure HPI - General Chief Complaint: Seizure Stated Complaint: SEIZURE Time Seen by Provider: 07/21/20 08:49 Source: family Mode of arrival: Stretcher Limitations: No Limitations - History of Present Illness Initial Comments: Patient is a 24-year-old female presents emergency room with complaints of a seizure that occurred this morning. She states that she had multiple seizures this morning. She states that it was witnessed by family members. She states that she has a history of seizures but has never been on a seizure medication. She denies any fever, nausea, vomiting, diarrhea, cough, shortness of breath, chest pain, abdominal pain. She has no physical complaints at this time. She denies biting her tongue. She denies any past medical history. No allergies to medications. She is currently on her menstrual cycle. She endorses daily alcohol use and states that she last drank last night. She endorses marijuana use. Patient was last seen for a seizure last month but states that she did not follow-up with a neurologist or primary care doctor. She states that she has never seen a neurologist for seizures. She reports that she had the seizures prior to her daily alcohol habit. She denies any SI, HI, hallucinations. - Related Data Previous Rx's Medication Instructions Recorded Last Taken Type Nicotine [Habitrol] 21 mg TD QDAY #15 patch 04/25/19 Unknown Rx Oxycodone HCl/Acetaminophen 1 each PO Q6HR PRN #15 tablet 04/25/19 Unknown Rx [Percocet 10/325 mg] Thiamine [Vitamin B-1] 100 mg PO QDAY #30 tablet 04/25/19 Unknown Rx levoFLOXacin [Levaquin TAB] 500 mg PO QDAY #5 tablet 04/25/19 Unknown Rx Ondansetron [Zofran Odt] 4 mg PO Q8HR PRN #20 tab.rapdis 04/30/19 Unknown Rx Promethazine [Phenergan] 25 mg PO Q6HR PRN #30 tab 04/30/19 Unknown Rx Dicyclomine [Bentyl] 10 mg PO QID PRN #40 capsule 05/02/19 Unknown Rx Sucralfate [Carafate] 1 gm PO ACHS 7 Days #28 tablet 05/02/19 Unknown Rx FLUoxetine [PROzac] 20 mg PO QDAY #30 capsule 11/28/19 Unknown Rx risperiDONE [RisperDAL] 0.5 mg PO BID #60 tablet 11/28/19 Unknown Rx Ondansetron [Zofran Odt] 4 mg PO Q8HR PRN #15 tab.rapdis 01/17/20 Unknown Rx Omeprazole 40 mg PO DAILY #20 capsule. 02/05/20 Unknown Rx Hyoscyamine Subl [Levsin Sl 0.125 0.125 mg PO Q6HR #14 tablet 05/12/20 Unknown R x TAB] Ondansetron (Nf) [Zofran TAB] 8 mg PO Q8HR #14 tablet 05/12/20 Unknown Rx levETIRAcetam [Keppra TAB] 1,000 mg PO BID 30 Days #60 tab 07/21/20 Unknown Rx Allergies Allergy/AdvReac Type Severity Reaction Status Date / Time apple Allergy Itching Verified 04/30/19 09:22 Fish Containing Products Allergy Itching Verified 04/30/19 09:22 hydromorphone [From Dilaudid] Allergy Itching Verified 11/27/19 04:33 ED Review of Systems ROS: Stated complaint: SEIZURE Other details as noted in HPI Comment: All other systems reviewed and negative ED Past Medical Hx - Past Medical History Previous Medical History?: Yes Hx Congestive Heart Failure: No Hx Diabetes: No Hx Seizures: Yes Hx Psychiatric Treatment: Yes (Depression, SI, Cutter, Schizophrenia) Hx Asthma: Yes Hx COPD: No Additional medical history: Alcoholic pancreatitis - Surgical History Past Surgical History?: Yes Additional Surgical History: foot - Social History Smoking Status: Current Every Day Smoker Substance Use Type: Marijuana - Medications Home Medications: Home Medications Medication Instructions Recorded Confirmed Last Taken Type Nicotine [Habitrol] 21 mg TD QDAY #15 patch 04/25/19 04/30/19 Unknown Rx Oxycodone HCl/Acetaminophen 1 each PO Q6HR PRN #15 tablet 04/25/19 04/30/19 Unknown Rx [Percocet 10/325 mg] Thiamine [Vitamin B-1] 100 mg PO QDAY #30 tablet 04/25/19 04/30/19 Unknown Rx levoFLOXacin [Levaquin TAB] 500 mg PO QDAY #5 tablet 04/25/19 04/30/19 Unknown Rx Ondansetron [Zofran Odt] 4 mg PO Q8HR PRN #20 tab.rapdis 04/30/19 Unknown Rx Promethazine [Phenergan] 25 mg PO Q6HR PRN #30 tab 04/30/19 Unknown Rx Dicyclomine [Bentyl] 10 mg PO QID PRN #40 capsule 05/02/19 Unknown Rx Sucralfate [Carafate] 1 gm PO ACHS 7 Days #28 tablet 05/02/19 Unknown Rx FLUoxetine [PROzac] 20 mg PO QDAY #30 capsule 11/28/19 Unknown Rx risperiDONE [RisperDAL] 0.5 mg PO BID #60 tablet 11/28/19 Unknown Rx Ondansetron [Zofran Odt] 4 mg PO Q8HR PRN #15 tab.rapdis 01/17/20 Unknown Rx Omeprazole 40 mg PO DAILY #20 capsule. 02/05/20 Unknown Rx Hyoscyamine Subl [Levsin Sl 0.125 0.125 mg PO Q6HR #14 tablet 05/12/20 Unknown Rx TAB] Ondansetron (Nf) [Zofran TAB] 8 mg PO Q8HR #14 tablet 05/12/20 Unknown Rx levETIRAcetam [Keppra TAB] 1,000 mg PO BID 30 Days #60 tab 07/21/20 Unknown Rx ED Physical Exam - General Limitations: No Limitations General appearance: alert, in no apparent distress - Head Head exam: Present: atraumatic, normocephalic - Eye Eye exam: Present: normal appearance - ENT ENT exam: Present: mucous membranes moist - Respiratory Respiratory exam: Present: normal lung sounds bilaterally. Absent: respiratory distress, wheezes, rales, rhonchi, stridor, chest wall tenderness, accessory muscle use, decreased breath sounds, prolonged expiratory - Cardiovascular Cardiovascular Exam: Present: regular rate, normal rhythm, normal heart sounds. Absent: systolic murmur, diastolic murmur, rubs, gallop - Neurological Exam Neurological exam: Present: alert, oriented X3 - Psychiatric Psychiatric exam: Present: normal affect, normal mood - Skin Skin exam: Present: warm, dry ED Course Vital Signs 07/21/20 07/21/20 04:37 17:59 Temperature 97.9 F 98.2 F Pulse Rate 67 78 Respiratory 12 18 Rate Blood Pressure 142/104 Blood Pressure 140/90 [Left] O2 Sat by Pulse 94 98 Oximetry ED Medical Decision Making - Lab Data Result diagrams: 07/21/20 05:20 07/21/20 05:20 Lab Results 07/21/20 07/21/20 07/21/20 Range/Units 05:20 05:20 05:20 WBC 4.5 (4.5-11.0) K/mm3 RBC 4.49 (3.65-5.03) M/mm3 Hgb 13.3 (10.1-14.3) gm/dl Hct 40.9 (30.3-42.9) % MCV 91 (79-97) fl MCH 30 (28-32) pg MCHC 33 (30-34) % RDW 15.8 H (13.2-15.2) % Plt Count 156 (140-440) K/mm3 Lymph % (Auto) Disciplinary Hearing Officer Add Manual Diff Complete Total Counted 100 Seg Neutrophils % Disciplinary Hearing Officer Seg Neuts % (Manual) 44.0 (40.0-70.0) % Band Neutrophils % 0 % Lymphocytes % (Manual) 48.0 H (13.4-35.0) % Reactive Lymphs % (Man) 1.0 % Monocytes % (Manual) 5.0 (0.0-7.3) % Eosinophils % (Manual) 0 (0.0-4.3) % Basophils % (Manual) 2.0 H (0.0-1.8) % Metamyelocytes % 0 % Myelocytes % 0 % Promyelocytes % 0 % Blast Cells % 0 % Nucleated RBC % Not Reportable Seg Neutrophils # Man 2.0 (1.8-7.7) K/mm3 Band Neutrophils # 0.0 K/mm3 Lymphocytes # (Manual) 2.2 (1.2-5.4) K/mm3 Abs React Lymphs (Man) 0.0 K/mm3 Monocytes # (Manual) 0.2 (0.0-0.8) K/mm3 Eosinophils # (Manual) 0.0 (0.0-0.4) K/mm3 Basophils # (Manual) 0.1 (0.0-0.1) K/mm3 Metamyelocytes # 0.0 K/mm3 Myelocytes # 0.0 K/mm3 Promyelocytes # 0.0 K/mm3 Blast Cells # 0.0 K/mm3 WBC Morphology Not Reportable Hypersegmented Neuts Not Reportable Hyposegmented Neuts Not Reportable Hypogranular Neuts Not Reportable Smudge Cells Not Reportable Toxic Granulation Not Reportable Toxic Vacuolation Not Reportable Dohle Bodies Not Reportable Pelger-Huet Anomaly Not Reportable Flor Rods Not Reportable Platelet Estimate Consistent w auto Clumped Platelets Not Reportable Plt Clumps, EDTA Not Reportable Large Platelets Few Giant Platelets Not Reportable Platelet Satelliting Not Reportable Plt Morphology Comment Not Reportable RBC Morphology Normal Dimorphic RBCs Not Reportable Polychromasia Not Reportable Hypochromasia Not Reportable Poikilocytosis Not Reportable Anisocytosis Not Reportable Microcytosis Not Reportable Macrocytosis Not Reportable Spherocytes Not Reportable Pappenheimer Bodies Not Reportable Sickle Cells Not Reportable Target Cells Not Reportable Tear Drop Cells Not Reportable Ovalocytes Not Reportable Helmet Cells Not Reportable Hu[place]-Gotham Bodies Not Reportable [place] Rings Not Reportable Marvin Cells Not Reportable Bite Cells Not Reportable Crenated Cell Not Reportable Elliptocytes Not Reportable Acanthocytes (Spur) Not Reportable Rouleaux Not Reportable Hemoglobin C Crystals Not Reportable Schistocytes Not Reportable Malaria parasites Not Reportable Homero Bodies Not Reportable Hem Pathologist Commnt No Sodium 145 (137-145) mmol/L Potassium 3.9 (3.6-5.0) mmol/L Chloride 102.9 (98-107) mmol/L Carbon Dioxide 22 (22-30) mmol/L Anion Gap 24 mmol/L BUN 12 (7-17) mg/dL Creatinine 0.9 (0.6-1.2) mg/dL Estimated GFR > 60 ml/min BUN/Creatinine Ratio 13 % Glucose 79 (65-100) mg/dL Calcium 8.8 (8.4-10.2) mg/dL Total Bilirubin (0.1-1.2) mg/dL Direct Bilirubin (0-0.2) mg/dL Indirect Bilirubin mg/dL AST (5-40) units/L ALT (7-56) units/L Alkaline Phosphatase (35-129) units/L Total Protein (6.3-8.2) g/dL Albumin (3.9-5) g/dL Albumin/Globulin Ratio % HCG, Qual Negative (Negative) Urine Color (Yellow) Urine Turbidity (Clear) Urine pH (5.0-7.0) Ur Specific [place] (1.003-1.030) Urine Protein (Negative) mg/dL Urine Glucose (UA) (Negative) mg/dL Urine Ketones (Negative) mg/dL Urine Blood (Negative) Urine Nitrite (Negative) Urine Bilirubin (Negative) Urine Urobilinogen (<2.0) mg/dL Ur Leukocyte Esterase (Negative) Urine WBC (Auto) (0.0-6.0) /HPF Urine RBC (Auto) (0.0-6.0) /HPF U Epithel Cells (Auto) (0-13.0) /HPF Urine Bacteria (Auto) (Negative) /HPF Hyaline Casts /LPF Urine Mucus /HPF Salicylates (2.8-20.0) mg/dL Urine Opiates Screen Urine Methadone Screen Acetaminophen (10.0-30.0) ug/mL Ur Barbiturates Screen Ur Phencyclidine Scrn Ur Amphetamines Screen U Benzodiazepines Scrn Urine Cocaine Screen U Marijuana (THC) Screen Drugs of Abuse Note Plasma/Serum Alcohol (0-0.07) % 07/21/20 07/21/20 07/21/20 Range/Units 09:21 09:21 09:21 WBC (4.5-11.0) K/mm3 RBC (3.65-5.03) M/mm3 Hgb (10.1-14.3) gm/dl Hct (30.3-42.9) % MCV (79-97) fl MCH (28-32) pg MCHC (30-34) % RDW (13.2-15.2) % Plt Count (140-440) K/mm3 Lymph % (Auto) Add Manual Diff Total Counted Seg Neutrophils % Seg Neuts % (Manual) (40.0-70.0) % Band Neutrophils % % Lymphocytes % (Manual) (13.4-35.0) % Reactive Lymphs % (Man) % Monocytes % (Manual) (0.0-7.3) % Eosinophils % (Manual) (0.0-4.3) % Basophils % (Manual) (0.0-1.8) % Metamyelocytes % % Myelocytes % % Promyelocytes % % Blast Cells % % Nucleated RBC % Seg Neutrophils # Man (1.8-7.7) K/mm3 Band Neutrophils # K/mm3 Lymphocytes # (Manual) (1.2-5.4) K/mm3 Abs React Lymphs (Man) K/mm3 Monocytes # (Manual) (0.0-0.8) K/mm3 Eosinophils # (Manual) (0.0-0.4) K/mm3 Basophils # (Manual) (0.0-0.1) K/mm3 Metamyelocytes # K/mm3 Myelocytes # K/mm3 Promyelocytes # K/mm3 Blast Cells # K/mm3 WBC Morphology Hypersegmented Neuts Hyposegmented Neuts Hypogranular Neuts Smudge Cells Toxic Granulation Toxic Vacuolation Dohle Bodies Pelger-Huet Anomaly Flor Rods Platelet Estimate Clumped Platelets Plt Clumps, EDTA Large Platelets Giant Platelets Platelet Satelliting Plt Morphology Comment RBC Morphology Dimorphic RBCs Polychromasia Hypochromasia Poikilocytosis Anisocytosis Microcytosis Macrocytosis Spherocytes Pappenheimer Bodies Sickle Cells Target Cells Tear Drop Cells Ovalocytes Helmet Cells Huerta-Gotham Bodies [place] Rings Marvin Cells Bite Cells Crenated Cell Elliptocytes Acanthocytes (Spur) Rouleaux Hemoglobin C Crystals Schistocytes Malaria parasites Homero Bodies Hem Pathologist Commnt Sodium (137-145) mmol/L Potassium (3.6-5.0) mmol/L Chloride (98-107) mmol/L Carbon Dioxide (22-30) mmol/L Anion Gap mmol/L BUN (7-17) mg/dL Creatinine (0.6-1.2) mg/dL Estimated GFR ml/min BUN/Creatinine Ratio % Glucose (65-100) mg/dL Calcium (8.4-10.2) mg/dL Total Bilirubin (0.1-1.2) mg/dL Direct Bilirubin (0-0.2) mg/dL Indirect Bilirubin mg/dL AST (5-40) units/L ALT (7-56) units/L Alkaline Phosphatase (35-129) units/L Total Protein (6.3-8.2) g/dL Albumin (3.9-5) g/dL Albumin/Globulin Ratio % HCG, Qual (Negative) Urine Color (Yellow) Urine Turbidity (Clear) Urine pH (5.0-7.0) Ur Specific [place] (1.003-1.030) Urine Protein (Negative) mg/dL Urine Glucose (UA) (Negative) mg/dL Urine Ketones (Negative) mg/dL Urine Blood (Negative) Urine Nitrite (Negative) Urine Bilirubin (Negative) Urine Urobilinogen (<2.0) mg/dL Ur Leukocyte Esterase (Negative) Urine WBC (Auto) (0.0-6.0) /HPF Urine RBC (Auto) (0.0-6.0) /HPF U Epithel Cells (Auto) (0-13.0) /HPF Urine Bacteria (Auto) (Negative) /HPF Hyaline Casts /LPF Urine Mucus /HPF Salicylates < 0.3 L (2.8-20.0) mg/dL Urine Opiates Screen Urine Methadone Screen Acetaminophen 5.0 L (10.0-30.0) ug/mL Ur Barbiturates Screen Ur Phencyclidine Scrn Ur Amphetamines Screen U Benzodiazepines Scrn Urine Cocaine Screen U Marijuana (THC) Screen Drugs of Abuse Note Plasma/Serum Alcohol 0.40 H (0-0.07) % 07/21/20 07/21/20 07/21/20 Range/Units 17:21 17:21 Unknown WBC (4.5-11.0) K/mm3 RBC (3.65-5.03) M/mm3 Hgb (10.1-14.3) gm/dl Hct (30.3-42.9) % MCV (79-97) fl MCH (28-32) pg MCHC (30-34) % RDW (13.2-15.2) % Plt Count (140-440) K/mm3 Lymph % (Auto) Add Manual Diff Total Counted Seg Neutrophils % Seg Neuts % (Manual) (40.0-70.0) % Band Neutrophils % % Lymphocytes % (Manual) (13.4-35.0) % Reactive Lymphs % (Man) % Monocytes % (Manual) (0.0-7.3) % Eosinophils % (Manual) (0.0-4.3) % Basophils % (Manual) (0.0-1.8) % Metamyelocytes % % Myelocytes % % Promyelocytes % % Blast Cells % % Nucleated RBC % Seg Neutrophils # Man (1.8-7.7) K/mm3 Band Neutrophils # K/mm3 Lymphocytes # (Manual) (1.2-5.4) K/mm3 Abs React Lymphs (Man) K/mm3 Monocytes # (Manual) (0.0-0.8) K/mm3 Eosinophils # (Manual) (0.0-0.4) K/mm3 Basophils # (Manual) (0.0-0.1) K/mm3 Metamyelocytes # K/mm3 Myelocytes # K/mm3 Promyelocytes # K/mm3 Blast Cells # K/mm3 WBC Morphology Hypersegmented Neuts Hyposegmented Neuts Hypogranular Neuts Smudge Cells Toxic Granulation Toxic Vacuolation Dohle Bodies Pelger-Huet Anomaly Flor Rods Platelet Estimate Clumped Platelets Plt Clumps, EDTA Large Platelets Giant Platelets Platelet Satelliting Plt Morphology Comment RBC Morphology Dimorphic RBCs Polychromasia Hypochromasia Poikilocytosis Anisocytosis Microcytosis Macrocytosis Spherocytes Pappenheimer Bodies Sickle Cells Target Cells Tear Drop Cells Ovalocytes Helmet Cells Huerta-Gotham Bodies [place] Rings Marvin Cells Bite Cells Crenated Cell Elliptocytes Acanthocytes (Spur) Rouleaux Hemoglobin C Crystals Schistocytes Malaria parasites Homero Bodies Hem Pathologist Commnt Sodium (137-145) mmol/L Potassium (3.6-5.0) mmol/L Chloride (98-107) mmol/L Carbon Dioxide (22-30) mmol/L Anion Gap mmol/L BUN (7-17) mg/dL Creatinine (0.6-1.2) mg/dL Estimated GFR ml/min BUN/Creatinine Ratio % Glucose (65-100) mg/dL Calcium (8.4-10.2) mg/dL Total Bilirubin 0.50 (0.1-1.2) mg/dL Direct Bilirubin < 0.2 (0-0.2) mg/dL Indirect Bilirubin 0.3 mg/dL AST 49 H (5-40) units/L ALT 26 (7-56) units/L Alkaline Phosphatase 48 (35-129) units/L Total Protein 6.8 (6.3-8.2) g/dL Albumin 3.9 (3.9-5) g/dL Albumin/Globulin Ratio 1.3 % HCG, Qual (Negative) Urine Color Yellow (Yellow) Urine Turbidity Slightly-cloudy (Clear) Urine pH 5.0 (5.0-7.0) Ur Specific [place] 1.018 (1.003-1.030) Urine Protein <15 mg/dl (Negative) mg/dL Urine Glucose (UA) Neg (Negative) mg/dL Urine Ketones Tr (Negative) mg/dL Urine Blood Sm (Negative) Urine Nitrite Neg (Negative) Urine Bilirubin Neg (Negative) Urine Urobilinogen < 2.0 (<2.0) mg/dL Ur Leukocyte Esterase Neg (Negative) Urine WBC (Auto) 3.0 (0.0-6.0) /HPF Urine RBC (Auto) 3.0 (0.0-6.0) /HPF U Epithel Cells (Auto) 1.0 (0-13.0) /HPF Urine Bacteria (Auto) 2+ (Negative) /HPF Hyaline Casts 2 /LPF Urine Mucus 3+ /HPF Salicylates (2.8-20.0) mg/dL Urine Opiates Screen Urine Methadone Screen Acetaminophen (10.0-30.0) ug/mL Ur Barbiturates Screen Ur Phencyclidine Scrn Ur Amphetamines Screen U Benzodiazepines Scrn Urine Cocaine Screen U Marijuana (THC) Screen Drugs of Abuse Note Plasma/Serum Alcohol 0.16 H (0-0.07) % 07/21/20 Range/Units Unknown WBC (4.5-11.0) K/mm3 RBC (3.65-5.03) M/mm3 Hgb (10.1-14.3) gm/dl Hct (30.3-42.9) % MCV (79-97) fl MCH (28-32) pg MCHC (30-34) % RDW (13.2-15.2) % Plt Count (140-440) K/mm3 Lymph % (Auto) Add Manual Diff Total Counted Seg Neutrophils % Seg Neuts % (Manual) (40.0-70.0) % Band Neutrophils % % Lymphocytes % (Manual) (13.4-35.0) % Reactive Lymphs % (Man) % Monocytes % (Manual) (0.0-7.3) % Eosinophils % (Manual) (0.0-4.3) % Basophils % (Manual) (0.0-1.8) % Metamyelocytes % % Myelocytes % % Promyelocytes % % Blast Cells % % Nucleated RBC % Seg Neutrophils # Man (1.8-7.7) K/mm3 Band Neutrophils # K/mm3 Lymphocytes # (Manual) (1.2-5.4) K/mm3 Abs React Lymphs (Man) K/mm3 Monocytes # (Manual) (0.0-0.8) K/mm3 Eosinophils # (Manual) (0.0-0.4) K/mm3 Basophils # (Manual) (0.0-0.1) K/mm3 Metamyelocytes # K/mm3 Myelocytes # K/mm3 Promyelocytes # K/mm3 Blast Cells # K/mm3 WBC Morphology Hypersegmented Neuts Hyposegmented Neuts Hypogranular Neuts Smudge Cells Toxic Granulation Toxic Vacuolation Dohle Bodies Pelger-Huet Anomaly Flor Rods Platelet Estimate Clumped Platelets Plt Clumps, EDTA Large Platelets Giant Platelets Platelet Satelliting Plt Morphology Comment RBC Morphology Dimorphic RBCs Polychromasia Hypochromasia Poikilocytosis Anisocytosis Microcytosis Macrocytosis Spherocytes Pappenheimer Bodies Sickle Cells Target Cells Tear Drop Cells Ovalocytes Helmet Cells Huerta-Gotham Bodies [place] Rings Marvin Cells Bite Cells Crenated Cell Elliptocytes Acanthocytes (Spur) Rouleaux Hemoglobin C Crystals Schistocytes Malaria parasites Homero Bodies Hem Pathologist Commnt Sodium (137-145) mmol/L Potassium (3.6-5.0) mmol/L Chloride (98-107) mmol/L Carbon Dioxide (22-30) mmol/L Anion Gap mmol/L BUN (7-17) mg/dL Creatinine (0.6-1.2) mg/dL Estimated GFR ml/min BUN/Creatinine Ratio % Glucose (65-100) mg/dL Calcium (8.4-10.2) mg/dL Total Bilirubin (0.1-1.2) mg/dL Direct Bilirubin (0-0.2) mg/dL Indirect Bilirubin mg/dL AST (5-40) units/L ALT (7-56) units/L Alkaline Phosphatase (35-129) units/L Total Protein (6.3-8.2) g/dL Albumin (3.9-5) g/dL Albumin/Globulin Ratio % HCG, Qual (Negative) Urine Color (Yellow) Urine Turbidity (Clear) Urine pH (5.0-7.0) Ur Specific [place] (1.003-1.030) Urine Protein (Negative) mg/dL Urine Glucose (UA) (Negative) mg/dL Urine Ketones (Negative) mg/dL Urine Blood (Negative) Urine Nitrite (Negative) Urine Bilirubin (Negative) Urine Urobilinogen (<2.0) mg/dL Ur Leukocyte Esterase (Negative) Urine WBC (Auto) (0.0-6.0) /HPF Urine RBC (Auto) (0.0-6.0) /HPF U Epithel Cells (Auto) (0-13.0) /HPF Urine Bacteria (Auto) (Negative) /HPF Hyaline Casts /LPF Urine Mucus /HPF Salicylates (2.8-20.0) mg/dL Urine Opiates Screen Presumptive negative Urine Methadone Screen Presumptive negative Acetaminophen (10.0-30.0) ug/mL Ur Barbiturates Screen Presumptive negative Ur Phencyclidine Scrn Presumptive negative Ur Amphetamines Screen Presumptive negative U Benzodiazepines Scrn Presumptive negative Urine Cocaine Screen Presumptive positive U Marijuana (THC) Screen Presumptive positive Drugs of Abuse Note Disclamer Plasma/Serum Alcohol (0-0.07) % Vital Signs 07/21/20 07/21/20 04:37 17:59 Temperature 97.9 F 98.2 F Pulse Rate 67 78 Respiratory 12 18 Rate Blood Pressure 142/104 Blood Pressure 140/90 [Left] O2 Sat by Pulse 94 98 Oximetry - Medical Decision Making Patient is a 24-year-old female presents emergency room with complaints of a seizure that occurred this morning. She states that she had multiple seizures this morning. She states that it was witnessed by family members. She states that she has a history of seizures but has never been on a seizure medication. She denies any fever, nausea, vomiting, diarrhea, cough, shortness of breath, chest pain, abdominal pain. She has no physical complaints at this time. She denies biting her tongue. She denies any past medical history. No allergies to medications. She is currently on her menstrual cycle. She endorses daily alcohol use and states that she last drank last night. She endorses marijuana use. Patient was last seen for a seizure last month but states that she did not follow-up with a neurologist or primary care doctor. She states that she has never seen a neurologist for seizures. She reports that she had the seizures prior to her daily alcohol habit. She denies any SI, HI, hallucinations. VSS. no abnormality on physical exam as documented in chart. labs significant for blood alcohol level of 0.40, otherwise labs are stable. UA is WNL. hcg is negative. UDS is positive for marijuana and cocaine. pt given 1L IVF, banana bag, 1 gram of keppra, and 1 mg of ativan. pt was observed in the emergency room for multiple hours. she had no seizure like activity in the ED. she states she is feeling well and ready to go home. she has no physical complaints. pt given prescription for keppra. advised pt Please take medication as prescribed. P lease increase your water intake. Please avoid alcohol use and drug use. You cannot operate a motor vehicle until you have been cleared by your neurologist. Follow-up with a primary care doctor. Follow-up with a neurologist. Return to emergency room for any new or worsening symptoms. Patient's alcohol has decreased 0.16, she is clinically sober at this time and is released into her significant others care Critical care attestation.: If time is entered above; I have spent that time in minutes in the direct care of this critically ill patient, excluding procedure time. ED Disposition Clinical Impression: Seizure, Alcohol abuse, Cocaine abuse, Marijuana use Alcohol intoxication Qualifiers: Complication of substance-induced condition: uncomplicated Qualified Code(s): F10.920 - Alcohol use, unspecified with intoxication, uncomplicated Disposition: DC-01 TO HOME OR SELFCARE Is pt being admited?: No Does the pt Need Aspirin: No Condition: Stable Instructions: Alcohol Intoxication (ED), Abuse of Alcohol (ED), Polysubstance Abuse (ED), Recurrent Seizures Adult (ED) Additional Instructions: Please take medication as prescribed. Please increase your water intake. Please avoid alcohol use and drug use. You cannot operate a motor vehicle until you have been cleared by your neurologist. Follow-up with a primary care doctor. Follow-up with a neurologist. Return to emergency room for any new or worsening symptoms. Prescriptions: levETIRAcetam [Keppra TAB] 1,000 mg PO BID 30 Days #60 tab Referrals: DEYANIRA DUFFY MD [Staff Physician] - 2-3 Days [facility] [Provider Group] - 2-3 Days JACK LAMB MD [Referring] - 2-3 Days EMBER HERNANDEZ MD [Staff Physician] - 2-3 Days Time of Disposition: 18:26 Print Language: MALAWIAN
[2020-07-21] MEDS ORDERED: THIAMINE 100 MG, FOLIC ACID 1 MG, MULTIPLE VITAMIN INJ, ADULT 10 ML in SODIUM CHLORIDE ... IV ONE (10:30)
[2020-07-21 16:59] LABS: Bacteria,Urine 2+ /HPF (Negative); Bilirubin,Urine NEG (Negative); Blood,Urine SM (Negative); Color,Urine Yellow (Yellow); Hyaline Casts,Urine 2 /LPF; Mucus,Urine 3+ /HPF; Protein,Urine <15 mg/dL mg/dL (Negative); Urobilinogen,Urine < 2.0 mg/dL (<2.0)
[2020-07-21 17:02] LABS: Amphetamine Screen,Urine PRESUMPTIVE NEGATIVE; Benzodiazepines Screen,Urine PRESUMPTIVE NEGATIVE; Cannabinoid Screen,Urine PRESUMPTIVE POSITIVE; Cocaine Screen,Urine PRESUMPTIVE POSITIVE; Methadone Screen,Urine PRESUMPTIVE NEGATIVE; Opiate Screen,Urine PRESUMPTIVE NEGATIVE
[2020-07-21 18:00] VITALS: BP 140/90
[2020-07-21 18:01] LABS: Alanine Aminotransferase 26 units/L (7-56); Albumin 3.9 g/dL (3.9-5)
[2020-07-21 18:06] LABS: Bilirubin,Direct < 0.2 mg/dL (0-0.2)
== END 2020-07-21 19:04 | disposition home or self-care (01) ==
LOC: ED 04:30
DX: G40.909 Epilepsy, unspecified, not intractable, without status epilepticus (principal); F10.129 Alcohol abuse with intoxication, unspecified; F12.10 Cannabis abuse, uncomplicated; F14.10 Cocaine abuse, uncomplicated; F32.9 Major depressive disorder, single episode, unspecified; F20.9 Schizophrenia, unspecified; J45.909 Unspecified asthma, uncomplicated; Z79.899 Other long term (current) drug therapy; Z91.013 Allergy to seafood; Z88.6 Allergy status to analgesic agent; Z91.018 Allergy to other foods
CPT/HCPCS: 36415; 80048; 80076; 80307; 81001; 84703; 85007; 85025; 96365; 96366; 96368; 96375; 99284; J1953; J2060; J3411; J7030; 80320; G0480

== ENCOUNTER 2020-09-07 23:29 | Emergency (ER) | payer SELFPAY ==
--- NOTE | 2020-09-08 00:12 | Emergency Department Report ---
ED Abdominal Pain HPI - General Chief Complaint: Rectal Pain Stated Complaint: RECTAL BLEEDING/ABD PAIN PUI?: No Time Seen by Provider: 09/08/20 00:07 Source: patient Mode of arrival: Ambulatory Limitations: No Limitations - History of Present Illness Initial Comments: She is a 24-year-old female that presents emergency room with complaints abdominal pain and bright red blood per rectum. Patient states her symptoms started yesterday. Patient states that her rectal bleeding is worsening. Patient states that the symptoms are worsening. Patient denies fever and chills. Patient denies nausea and vomiting. Patient states the abdominal pain is in her bilateral lower quadrant. Patient states the abdominal pain is better with rest and worse with movement. Patient states her period was 2 weeks ago. Patient denies vomiting. Patient denies cough. Patient denies recent travel. Patient denies recent international travel. Patient denies exposure to the novel coronavirus. Patient denies sick contacts. Patient denies fever and chills. Patient denies cough. Patient denies diarrhea. Patient denies coming in contact with anybody with symptoms of the novel coronavirus. MD Complaint: abdominal pain -: Sudden Location: RLQ Radiation: none Migration to: no migration Severity: severe Severity scale (0 -10): 6 Quality: stabbing Consistency: constant Improves With: rest Worsens With: movement Associated Symptoms: hematochezia. denies: nausea, vomiting, diarrhea, fever, chills, constipation, dysuria, hematemesis, melena, hematuria, anorexia, syncope - Related Data Previous Rx's Medication Instructions Recorded Last Taken Type Nicotine [Habitrol] 21 mg TD QDAY #15 patch 04/25/19 Unknown Rx Oxycodone HCl/Acetaminophen 1 each PO Q6HR PRN #15 tablet 04/25/19 Unknown Rx [Percocet 10/325 mg] Thiamine [Vitamin B-1] 100 mg PO QDAY #30 tablet 04/25/19 Unknown Rx levoFLOXacin [Levaquin TAB] 500 mg PO QDAY #5 tablet 04/25/19 Unknown Rx Ondansetron [Zofran Odt] 4 mg PO Q8HR PRN #20 tab.rapdis 04/30/19 Unknown Rx Promethazine [Phenergan] 25 mg PO Q6HR PRN #30 tab 04/30/19 Unknown Rx Dicyclomine [Bentyl] 10 mg PO QID PRN #40 capsule 05/02/19 Unknown Rx Sucralfate [Carafate] 1 gm PO ACHS 7 Days #28 tablet 05/02/19 Unknown Rx FLUoxetine [PROzac] 20 mg PO QDAY #30 capsule 11/28/19 Unknown Rx risperiDONE [RisperDAL] 0.5 mg PO BID #60 tablet 11/28/19 Unknown Rx Ondansetron [Zofran Odt] 4 mg PO Q8HR PRN #15 tab.rapdis 01/17/20 Unknown Rx Omeprazole 40 mg PO DAILY #20 capsule. 02/05/20 Unknown Rx Hyoscyamine Subl [Levsin Sl 0.125 0.125 mg PO Q6HR #14 tablet 05/12/20 Unknown Rx TAB] Ondansetron (Nf) [Zofran TAB] 8 mg PO Q8HR #14 tablet 05/12/20 Unknown Rx levETIRAcetam [Keppra TAB] 1,000 mg PO BID 30 Days #60 tab 07/21/20 Unknown Rx Docusate Sodium [Colace] 100 mg PO BID PRN #30 capsule 09/08/20 Unknown Rx Hydrocort/Pramoxine [Proctofoam-Hc] 10 gm [place] BID PRN #1 can 09/08/20 Unknown Rx Sulfamethoxazole/Trimethoprim 1 each PO BID 10 Days #20 tablet 09/08/20 Unknown Rx [Bactrim DS TAB] Allergies Allergy/AdvReac Type Severity Reaction Status Date / Time apple Allergy Itching Verified 04/30/19 09:22 Fish Containing Products Allergy Itching Verified 04/30/19 09:22 hydromorphone [From Dilaudid] Allergy Itching Verified 11/27/19 04:33 ED Review of Systems ROS: Stated complaint: RECTAL BLEEDING/ABD PAIN Other details as noted in HPI Constitutional: denies: chills, fever Eyes: denies: eye pain, eye discharge, vision change ENT: denies: ear pain, throat pain Respiratory: denies: cough, shortness of breath, wheezing Cardiovascular: denies: chest pain, palpitations Endocrine: no symptoms reported Gastrointestinal: abdominal pain, hematochezia. denies: nausea, diarrhea Genitourinary: denies: urgency, dysuria, discharge Musculoskeletal: denies: back pain, joint swelling, arthralgia Skin: denies: rash, lesions Neurological: denies: headache, weakness, paresthesias Psychiatric: denies: anxiety, depression Hematological/Lymphatic: denies: easy bleeding, easy bruising ED Past Medical Hx - Past Medical History Previous Medical History?: Yes Hx Congestive Heart Failure: No Hx Diabetes: No Hx Seizures: Yes Hx Psychiatric Treatment: Yes (Depression, SI, Cutter, Schizophrenia) Hx Asthma: Yes Hx COPD: No Additional medical history: Alcoholic pancreatitis - Surgical History Past Surgical History?: Yes Additional Surgical History: foot - Family History Family history: no significant - Social History Smoking Status: Current Every Day Smoker Substance Use Type: Alcohol - Medications Home Medications: Home Medications Medication Instructions Recorded Confirmed Last Taken Type Nicotine [Habitrol] 21 mg TD QDAY #15 patch 04/25/19 04/30/19 Unknown Rx Oxycodone HCl/Acetaminophen 1 each PO Q6HR PRN #15 tablet 04/25/19 04/30/19 Un known Rx [Percocet 10/325 mg] Thiamine [Vitamin B-1] 100 mg PO QDAY #30 tablet 04/25/19 04/30/19 Unknown Rx levoFLOXacin [Levaquin TAB] 500 mg PO QDAY #5 tablet 04/25/19 04/30/19 Unknown Rx Ondansetron [Zofran Odt] 4 mg PO Q8HR PRN #20 tab.rapdis 04/30/19 Unknown Rx Promethazine [Phenergan] 25 mg PO Q6HR PRN #30 tab 04/30/19 Unknown Rx Dicyclomine [Bentyl] 10 mg PO QID PRN #40 capsule 05/02/19 Unknown Rx Sucralfate [Carafate] 1 gm PO ACHS 7 Days #28 tablet 05/02/19 Unknown Rx FLUoxetine [PROzac] 20 mg PO QDAY #30 capsule 11/28/19 Unknown Rx risperiDONE [RisperDAL] 0.5 mg PO BID #60 tablet 11/28/19 Unknown Rx Ondansetron [Zofran Odt] 4 mg PO Q8HR PRN #15 tab.rapdis 01/17/20 Unknown Rx Omeprazole 40 mg PO DAILY #20 capsule. 02/05/20 Unknown Rx Hyoscyamine Subl [Levsin Sl 0.125 0.125 mg PO Q6HR #14 tablet 05/12/20 Unknown Rx TAB] Ondansetron (Nf) [Zofran TAB] 8 mg PO Q8HR #14 tablet 05/12/20 Unknown Rx levETIRAcetam [Keppra TAB] 1,000 mg PO BID 30 Days #60 tab 07/21/20 Unknown Rx Docusate Sodium [Colace] 100 mg PO BID PRN #30 capsule 09/08/20 Unknown Rx Hydrocort/Pramoxine [Proctofoam-Hc] 10 gm [place] BID PRN #1 can 09/08/20 Unknown Rx Sulfamethoxazole/Trimethoprim 1 each PO BID 10 Days #20 tablet 09/08/20 Unknown Rx [Bactrim DS TAB] ED Physical Exam - General Limitations: No Limitations General appearance: alert, in no apparent distress - Head Head exam: Present: atraumatic, normocephalic - Eye Eye exam: Present: normal appearance - ENT ENT exam: Present: mucous membranes moist - Neck Neck exam: Present: normal inspection - Respiratory Respiratory exam: Present: normal lung sounds bilaterally. Absent: respiratory distress, wheezes, rales - Cardiovascular Cardiovascular Exam: Present: regular rate, normal rhythm. Absent: systolic murmur, diastolic murmur, rubs, gallop - GI/Abdominal GI/Abdominal exam: Present: soft, tenderness (Bilateral lower quadrant tenderness), normal bowel sounds. Absent: distended - Rectal Rectal exam: Present: normal inspection, normal rectal tone, heme (-) stool, hemorrhoids. Absent: heme (+) stool, black stool, bloody stool, mass, tenderness - Extremities Exam Extremities exam: Present: normal inspection - Back Exam Back exam: Present: normal inspection - Neurological Exam Neurological exam: Present: alert, oriented X3 - Psychiatric Psychiatric exam: Present: normal affect, normal mood - Skin Skin exam: Present: warm, dry, intact, normal color. Absent: rash ED Course - Reevaluation(s) Reevaluation #1: Rectal exam done. Patient agrees to exam. Nurse ramo in the room at all times. Patient's guaiac is negative. 09/08/20 00:35 Reevaluation #2: I discussed all results and clinical findings with patient. I discussed plan of care with patient. Patient agrees with plan of care. Patient is stable for discharge. Patient will be discharged home. Patient given discharge instructions. Patient voiced understanding of discharge instructions. 09/08/20 05:18 ED Medical Decision Making - Lab Data Result diagrams: 09/08/20 00:54 09/08/20 00:54 - Radiology Data Radiology results: report reviewed Transvaginal and transpelvic ultrasound with Doppler INDICATION: Pelvic pain with positive test. FINDINGS: Uterus measures about 8 x 3 x 4 cm. Endometrial thickness is normal measuring 10 mm. No intrauterine gestational sac is identified. Cystlike lesions are present within both ovaries the largest is located within the left ovary measuring 4.6 cm in greatest diameter containing some internal echoes. Several follicles are present within the right ovary. Demonstratable Doppler flow is present within both ovaries. No large volume free pelvic fluid. Question small nabothian cyst. IMPRESSION: No intrauterine identified. A tiny amount of nonspecific fluid is seen within the lower uterine segment,.. mildly complex 4.2 cm cyst within the left ovary could represent hemorrhagic cyst but is ultimately indeterminate. No significant flow is associated within this cystlike lesion within the left ovary. - Medical Decision Making Patient is a 44-year-old female that presents emergency room with complaints of abdominal pain and pressure blood per rectum. Patient had a rectal exam which was guaiac negative but showed a hemorrhoid. Patient found to have a positive hCG. Patient had an ultrasound which shows a empty uterus. Patient medical findings are consistent with a bleeding hemorrhoid and a miscarriage. Patient's labs are essentially unremarkable except for positive hCG, UTI. Patient stable for discharge. Patient discharged home. - Differential Diagnosis Abdominal pain, , pancreatitis, UTI, Critical care attestation.: If time is entered above; I have spent that time in minutes in the direct care of this critically ill patient, excluding procedure time. ED Disposition Clinical Impression: Miscarriage, PRB (rectal bleeding) Abdominal pain Qualifiers: Abdominal location: lower abdomen, unspecified Qualified Code(s): R10.30 - Lower abdominal pain, unspecified Hemorrhoids Qualifiers: Hemorrhoid type: unspecified Qualified Code(s): K64.9 - Unspecified hemorrhoids UTI (urinary tract infection) Qualifiers: Urinary tract infection type: acute cystitis Hematuria presence: with hematuria Qualified Code(s): N30.01 - Acute cystitis with hematuria Disposition: TO HOME OR SELFCARE Is pt being admited?: No Does the pt Need Aspirin: No Condition: Stable Instructions: Hemorrhoids, [id number], Gastrointestinal Bleeding, [id number], Abdominal Pain, Adult, Hemorrhoids, Miscarriage Additional Instructions: Patient to follow-up with primary care in 2 to 3 days. Patient to follow-up with [facility] in 2 to 3 days. Patient to follow-up with colorectal surgery for management of her hemorrhoids. Patient to rest. Patient to increase water. Patient to avoid strenuous exercise or heavy lifting until cleared by [facility]. Patient to take Tylenol or ibuprofen as needed for pain. Patient to take meds as directed. Patient to return to the ER if condition worsens, changes or new symptoms arise. Prescriptions: Sulfamethoxazole/Trimethoprim [Bactrim DS TAB] 1 each PO BID 10 Days #20 tablet Docusate Sodium [Colace] 100 mg PO BID PRN #30 capsule PRN Reason: Constipation Hydrocort/Pramoxine [Proctofoam-Hc] 10 gm [place] BID PRN #1 can PRN Reason: Hemorrhoids Referrals: PRIMARY CARE, [Primary Care Provider] - 2-3 Days CEASAR ZAVALA MD [Staff Physician] - 2-3 Days Time of Disposition: 05:22
[2020-09-08 01:11] LABS: Basophils % (Auto) 0.9 % (0.0-1.8); Eosinophils # (Auto) 0.1 K/mm3 (0.0-0.4); Eosinophils % (Auto) 1.5 % (0.0-4.3); Hematocrit 36.1 % (30.3-42.9); Hemoglobin 12.1 gm/dl (10.1-14.3); Lymphocytes # (Auto) 1.1 K/mm3 (1.2-5.4); Lymphocytes % (Auto) 28.9 % (13.4-35.0); Mean Corpuscular HGB Conc 33 % (30-34); Mean Corpuscular Volume 90 fl (79-97); Monocytes # (Auto) 0.4 K/mm3 (0.0-0.8); Monocytes % (Auto) 11.4 % (0.0-7.3); Platelet Count 104 K/mm3 (140-440); Red Blood Count 4.01 M/mm3 (3.65-5.03); Red Cell Distribution Width 15.7 % (13.2-15.2)
[2020-09-08 01:29] LABS: Alanine Aminotransferase 33 units/L (7-56); Albumin 4.2 g/dL (3.9-5); Bilirubin,Direct 0.2 mg/dL (0-0.2); Blood Urea Nitrogen 9 mg/dL (7-17); Calcium 9.1 mg/dL (8.4-10.2); Hemolysis Index 5
[2020-09-08 01:44] LABS: BUN/Creatinine Ratio 13
[2020-09-08] MEDS ORDERED: ONDANSETRON 4 MG/2 ML INJ ONE (02:01)
[2020-09-08] MEDS ORDERED: ONDANSETRON 4 MG/2 ML INJ IV ONE (02:04)
--- NOTE | 2020-09-08 03:26 | Ultrasound Report ---
Transvaginal and transpelvic ultrasound with Doppler INDICATION: Pelvic pain with positive test. FINDINGS: Uterus measures about 8 x 3 x 4 cm. Endometrial thickness is normal measuring 10 mm. No int rauterine gestational sac is identified. Cystlike lesions are present within both ovaries the largest is located within the left ovary measuring 4.6 cm in greatest diameter containing some internal echo es. Several follicles are present within the right ovary. Demonstratable Doppler flow is present with in both ovaries. No large volume free pelvic fluid. Question small nabothian cyst. IMPRESSION: No intrauterine identified. A tiny amount of nonspecific fluid is seen within t he lower uterine segment,.. mildly complex 4.2 cm cyst within the left ovary could represent hemorrha gic cyst but is ultimately indeterminate. No significant flow is associated within this cystlike lesi on within the left ovary. Signer Name: Sagar Crockett MD Signed: 09/08/2020 3:21 AM Workstation Name: [id number]
[2020-09-08 04:46] LABS: Bilirubin,Urine NEG (Negative); Blood,Urine SM (Negative); Color,Urine Yellow (Yellow); Mucus,Urine 1+ /HPF; Protein,Urine <15 mg/dL mg/dL (Negative)
== END 2020-09-08 05:40 | disposition home or self-care (01) ==
LOC: ED 23:29
DX: O20.0 Threatened abortion (principal); O23.41 Unspecified infection of urinary tract in pregnancy, first trimester; O22.41 Hemorrhoids in pregnancy, first trimester; Z3A.01 Less than 8 weeks gestation of pregnancy
CPT/HCPCS: 36415; 76801; 76817; 80048; 80076; 81001; 83690; 84702; 84703; 85025; 96374; 99284; J2405

== ENCOUNTER 2020-12-05 02:35 | Emergency (ER) | payer SELFPAY | END 2020-12-05 04:40 | disposition left against medical advice (07) | LOC: ED 02:35 | DX: R56.9 Unspecified convulsions (principal); Z53.21 Procedure and treatment not carried out due to patient leaving prior to being seen by health care provider ==

== ENCOUNTER 2021-02-11 03:09 | Emergency (ER) | payer SELFPAY ==
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
[2021-02-11 10:00] VITALS: BP 139/98
== END 2021-02-11 10:00 | disposition home or self-care (01) ==
LOC: ED 03:09
DX: S00.03XA Contusion of scalp, initial encounter (principal); S40.022A Contusion of left upper arm, initial encounter; S70.01XA Contusion of right hip, initial encounter; S70.02XA Contusion of left hip, initial encounter; S09.90XA Unspecified injury of head, initial encounter; F25.9 Schizoaffective disorder, unspecified; J45.909 Unspecified asthma, uncomplicated; F17.200 Nicotine dependence, unspecified, uncomplicated; F12.90 Cannabis use, unspecified, uncomplicated; Z79.899 Other long term (current) drug therapy; Z88.8 Allergy status to other drugs, medicaments and biological substances; Z91.018 Allergy to other foods; Z86.69 Personal history of other diseases of the nervous system and sense organs; Z98.890 Other specified postprocedural states; V09.9XXA Pedestrian injured in unspecified transport accident, initial encounter; Y92.410 Unspecified street and highway as the place of occurrence of the external cause; Y93.89 Activity, other specified; Y99.8 Other external cause status
CPT/HCPCS: 36415; 70450; 72125; 84703

== ENCOUNTER 2021-04-14 03:43 | Emergency (ER) | payer SELFPAY ==
[2021-04-14 04:12] VITALS: BP 116/78
[2021-04-14] MEDS ORDERED: SODIUM CHLORIDE 0.9% 1000 ML 1,000 ML IV ONE (04:36)
--- NOTE | 2021-04-14 04:43 | Emergency Department Report ---
ED General Adult HPI - General Chief complaint: Abdominal Pain Stated complaint: ABD PAIN Time Seen by Provider: 04/14/21 04:22 Source: patient Mode of arrival: Stretcher Limitations: No Limitations - History of Present Illness Initial comments: 25-year-old female patient with history of recurrent alcoholic pancreatitis presents to the emergency department with complaints of epigastric pain, nausea, and vomiting starting approximately 8 hours ago. Patient states she has had 3 episodes of nonbloody emesis since onset. Symptoms are reminiscent of prior episodes of pancreatitis requiring hospitalization. Unsure of last menstrual cycle. No known sick contacts. No current steroid or antibiotic use. Endorses alcohol use prior to onset of symptoms. Denies fever, chills, hematemesis, diarrhea, constipation, urinary symptoms. Denies all other complaints at this time. - Related Data Previous Rx's Medication Instructions Recorded Last Taken Type Nicotine [Habitrol] 21 mg TD QDAY #15 patch 04/25/19 Unknown Rx Oxycodone HCl/Acetaminophen 1 each PO Q6HR PRN #15 tablet 04/25/19 Unknown Rx [Percocet 10/325 mg] Thiamine [Vitamin B-1] 100 mg PO QDAY #30 tablet 04/25/19 Unknown Rx levoFLOXacin [Levaquin TAB] 500 mg PO QDAY #5 tablet 04/25/19 Unknown Rx Ondansetron [Zofran Odt] 4 mg PO Q8HR PRN #20 tab.rapdis 04/30/19 Unknown Rx Promethazine [Phenergan] 25 mg PO Q6HR PRN #30 tab 04/30/19 Unknown Rx Dicyclomine [Bentyl] 10 mg PO QID PRN #40 capsule 05/02/19 Unknown Rx Sucralfate [Carafate] 1 gm PO ACHS 7 Days #28 tablet 05/02/19 Unknown Rx FLUoxetine [PROzac] 20 mg PO QDAY #30 capsule 11/28/19 Unknown Rx risperiDONE [RisperDAL] 0.5 mg PO BID #60 tablet 11/28/19 Unknown Rx Ondansetron [Zofran Odt] 4 mg PO Q8HR PRN #15 tab.rapdis 01/17/20 Unknown Rx Omeprazole 40 mg PO DAILY #20 rosey. 02/05/20 Unknown Rx Hyoscyamine Subl [Levsin Sl 0.125 0.125 mg PO Q6HR #14 tablet 05/12/20 Unknown Rx TAB] Ondansetron (Nf) [Zofran TAB] 8 mg PO Q8HR #14 tablet 05/12/20 Unknown Rx levETIRAcetam [Keppra TAB] 1,000 mg PO BID 30 Days #60 tab 07/21/20 Unknown Rx Docusate Sodium [Colace] 100 mg PO BID PRN #30 capsule 09/08/20 Unknown Rx Hydrocort/Pramoxine [Proctofoam-Hc] 10 gm NV BID PRN #1 can 09/08/20 Unknown Rx Sulfamethoxazole/Trimethoprim 1 each PO BID 10 Days #20 tablet 09/08/20 Unknown Rx [Bactrim DS TAB] Naproxen 500 mg PO BID #20 tablet 02/11/21 Unknown Rx Ondansetron [Zofran Odt] 4 mg PO Q4H #20 tab.rapdis 04/14/21 Unknown Rx Allergies Allergy/AdvReac Type Severity Reaction Status Date / Time apple Allergy Itching Verified 04/30/19 09:22 Fish Containing Products Allergy Itching Verified 04/30/19 09:22 hydromorphone [From Dilaudid] Allergy Itching Verified 11/27/19 04:33 ED Review of Systems ROS: Stated complaint: ABD PAIN Other details as noted in HPI Other: GENERAL: Negative for fever, chills, weight change, anorexia, fatigue. ENT: Negative for ear pain, difficulty hearing, sore throat, nasal congestion, epistaxis. CARDIOVASCULAR: Negative for chest pain, palpitations, lower extremity swelling. PULMONARY: Negative for cough, dyspnea, wheezing, orthopnea, cyanosis. GASTROINTESTINAL: Positive for abdominal pain, nausea, vomiting. MUSCULOSKELETAL: Negative for joint pain, joint swelling, myalgias, back pain, neck pain. NEUROLOGICAL: Negative for headache, seizure, syncope, paresthesias, weakness. INTEGUMENTARY: Negative for erythema, rash, diaphoresis, laceration, ecchymosis. HEMATOLOGICAL: Negative for hemoptysis, hematemesis, hematochezia, hematuria. PSYCHIATRIC: Negative for hallucinations, suicidal ideation, homicidal ideation, anxiety, depression. ED Past Medical Hx - Past Medical History Previous Medical History?: Yes Hx Congestive Heart Failure: No Hx Diabetes: No Hx Seizures: Yes Hx Psychiatric Treatment: Yes (Depression, SI, Cutter, Schizophrenia) Hx Asthma: Yes Hx COPD: No Additional medical history: Alcoholic pancreatitis - Surgical History Past Surgical History?: Yes Additional Surgical History: foot - Social History Smoking Status: Current Every Day Smoker Substance Use Type: Alcohol - Medications Home Medications: Home Medications Medication Instructions Recorded Confirmed Last Taken Type Nicotine [Habitrol] 21 mg TD QDAY #15 patch 04/25/19 04/30/19 Unknown Rx Oxycodone HCl/Acetaminophen 1 each PO Q6HR PRN #15 tablet 04/25/19 04/30/19 Unknown Rx [Percocet 10/325 mg] Thiamine [Vitamin B-1] 100 mg PO QDAY #30 tablet 04/25/19 04/30/19 Unknown Rx levoFLOXacin [Levaquin TAB] 500 mg PO QDAY #5 tablet 04/25/19 04/30/19 Unknown Rx Ondansetron [Zofran Odt] 4 mg PO Q8HR PRN #20 tab.rapdis 04/30/19 Unknown Rx Promethazine [Phenergan] 25 mg PO Q6HR PRN #30 tab 04/30/19 Unknown Rx Dicyclomine [Bentyl] 10 mg PO QID PRN #40 capsule 05/02/19 Unknown Rx Sucralfate [Carafate] 1 gm PO ACHS 7 Days #28 tablet 05/02/19 Unknown Rx FLUoxetine [PROzac] 20 mg PO QDAY #30 capsule 11/28/19 Unknown Rx risperiDONE [RisperDAL] 0.5 mg PO BID #60 tablet 11/28/19 Unknown Rx Ondansetron [Zofran Odt] 4 mg PO Q8HR PRN #15 tab.rapdis 01/17/20 Unknown Rx Omeprazole 40 mg PO DAILY #20 capsule. 02/05/20 Unknown Rx Hyoscyamine Subl [Levsin Sl 0.125 0.125 mg PO Q6HR #14 tablet 05/12/20 Unknown Rx TAB] Ondansetron (Nf) [Zofran TAB] 8 mg PO Q8HR #14 tablet 05/12/20 Unknown Rx levETIRAcetam [Keppra TAB] 1,000 mg PO BID 30 Days #60 tab 07/21/20 Unknown Rx Docusate Sodium [Colace] 100 mg PO BID PRN #30 capsule 09/08/20 Unknown Rx Hydrocort/Pramoxine [Proctofoam-Hc] 10 gm NV BID PRN #1 can 09/08/20 Unknown Rx Sulfamethoxazole/Trimethoprim 1 each PO BID 10 Days #20 tablet 09/08/20 Unknown Rx [Bactrim DS TAB] Naproxen 500 mg PO BID #20 tablet 02/11/21 Unknown Rx Ondansetron [Zofran Odt] 4 mg PO Q4H #20 tab.rapdis 04/14/21 Unknown Rx ED Physical Exam - General Limitations: No Limitations - Other Other exam information: General: Awake and alert. Appears uncomfortable. Head: Atraumatic, normocephalic. Eyes: EOMI. Pupils are equal and round. Normal sclera and conjunctiva. ENT: Oral mucosa is moist. Normal pharyngeal exam. Neck: Supple. No lymphadenopathy. Pulmonary: No respiratory distress. Clear to auscultation bilaterally. Cardiac: Regular rate and rhythm. Pulses are palpable and equal bilaterally. No lower extremity cyanosis or edema. Skin: Warm and dry. No rashes. Abdomen: Soft, non-protuberant. Diffuse abdominal tenderness most pronounced along the epigastric area without rigidity or rebound. Bowel sounds are normal. No organomegaly or masses noted. Back: Normal alignment. No CVA tenderness. Extremities: Symmetrical. Full range of motion intact. Neurological: Alert and oriented, appropriately interactive, no focal deficits. Psych: Cooperative. Appropriate mood and affect. Speech is evenly metered. Thoughts are logically construed. ED Course Vital Signs 04/14/21 04:05 Temperature 98.3 F Pulse Rate 88 Respiratory 18 Rate Blood Pressure 116/78 O2 Sat by Pulse 99 Oximetry ED Medical Decision Making - Lab Data Result diagrams: 04/14/21 04:26 04/14/21 04:26 - Medical Decision Making Differential diagnosis including but not limited to: pancreatitis, cholecystitis, peptic ulcer disease, diverticulitis, appendicitis, , alcohol intoxication, viral infection On reevaluation, patient is resting comfortably. Repeat abdominal exam is benign. Pain is controlled. No further vomiting in the emergency department. Blood alcohol level is 0.25. Suspect minimal leukocytosis is attributable to stress demargination in the absence of fever, tachycardia, hypotension, peritoneal signs. Lipase is normal. test is negative. History and exam findings suggestive of acute alcohol intoxication. No clinical indication for further diagnostic work-up on an emergent basis at this time. Patient will be discharged home once she makes arrangements for safe transportation home from the emergency department. Strict return precautions provided. History, exam, diagnostic testing, and current condition do not suggest worrisome pathology to warrant further testing, continued ED treatment, admis bryce, or surgical evaluation at this point. Given the low probability of a significant medical illness, it would be more likely to result in harm than benefit to perform further testing at this stage. Discussed findings, presumptive diagnosis, need for follow-up and specific signs/symptoms that shou ld prompt immediate return to the emergency department. Instructions were explained in detail to the patient in addition to giving written discharge information. Patient expressed understanding and was given the opportunity to ask questions, all of which were satisfactorily answered prior to discharge home. Critical care attestation.: If time is entered above; I have spent that time in minutes in the direct care of this critically ill patient, excluding procedure time. ED Disposition Clinical Impression: Alcohol intoxication Qualifiers: Complication of substance-induced condition: uncomplicated Qualified Code(s): F10.920 - Alcohol use, unspecified with intoxication, uncomplicated Disposition: DC-01 TO HOME OR SELFCARE Is pt being admited?: No Does the pt Need Aspirin: No Condition: Stable Instructions: Binge-Drinking Information, Adult, Abdominal Pain (ED) Additional Instructions: Take Zofran as directed for nausea/vomiting. Please discontinue alcohol use. Rest. Drink plenty of fluids. Gradually advance diet slowly as tolerated. Follow-up with primary care provider this week. Call Friday to schedule an appointment. Return to the emergency department immediately for new or worsening symptoms. Prescriptions: Ondansetron [Zofran Odt] 4 mg PO Q4H #20 tab.rapdis Referrals: CAROLINA MONDRAGON MD [Primary Care Provider] - 3-5 Days Time of Disposition: 06:59
[2021-04-14 05:00] LABS: Basophils # (Auto) 0.1 K/mm3 (0.0-0.1); Basophils % (Auto) 0.5 % (0.0-1.8); Eosinophils % (Auto) 0.4 % (0.0-4.3); Hematocrit 35.4 % (30.3-42.9); Hemoglobin 11.7 gm/dl (10.1-14.3); Lymphocytes # (Auto) 1.8 K/mm3 (1.2-5.4); Lymphocytes % (Auto) 13.8 % (13.4-35.0); Mean Corpuscular HGB Conc 33 % (30-34); Mean Corpuscular Volume 90 fl (79-97); Monocytes # (Auto) 0.7 K/mm3 (0.0-0.8); Monocytes % (Auto) 5.3 % (0.0-7.3); Platelet Count 105 K/mm3 (140-440); Red Blood Count 3.94 M/mm3 (3.65-5.03); Red Cell Distribution Width 18.2 % (13.2-15.2)
[2021-04-14 05:22] LABS: Alanine Aminotransferase 36 units/L (7-56); Albumin 4.6 g/dL (3.9-5); BUN/Creatinine Ratio 16; Blood Urea Nitrogen 13 mg/dL (7-17); Calcium 9.1 mg/dL (8.4-10.2); Hemolysis Index 3
[2021-04-14] MEDS ORDERED: FAMOTIDINE 20 MG/2 ML INJ IV ONE (05:40)
[2021-04-14] MEDS ORDERED: HYOSCYAMINE SUBL 0.125 MG TAB SL ONE (05:40)
[2021-04-14] MEDS ORDERED: diphenhydrAMINE 50 MG/ML VIAL IV ONE (05:40)
[2021-04-14] MEDS ORDERED: PROCHLORPERAZINE EDISYLATE 10 MG/2 ML VIAL IV ONE (05:40)
== END 2021-04-14 09:15 | disposition home or self-care (01) ==
LOC: ED 03:43
DX: F10.920 Alcohol use, unspecified with intoxication, uncomplicated (principal); F25.1 Schizoaffective disorder, depressive type; J45.909 Unspecified asthma, uncomplicated; F17.200 Nicotine dependence, unspecified, uncomplicated; Z88.8 Allergy status to other drugs, medicaments and biological substances; Z79.899 Other long term (current) drug therapy; Z91.013 Allergy to seafood; Z98.890 Other specified postprocedural states
CPT/HCPCS: 36415; 80053; 83690; 83735; 84703; 85025; 96361; 96374; 96375; 99284; J0780; J1200; J7030; 80320; G0480

== ENCOUNTER 2021-10-23 18:00 | Emergency (ER) | payer SELFPAY ==
[2021-10-23] MEDS ORDERED: ONDANSETRON 4 MG/2 ML INJ IV ONE ×2 (21:03→23:50)
[2021-10-23] MEDS ORDERED: SODIUM CHLORIDE 0.9% 1000 ML 1,000 ML IV ONE (23:50)
[2021-10-23] MEDS ORDERED: MORPHINE 4 MG/1 ML INJ IV ONE (23:50)
[2021-10-23] MEDS ORDERED: diphenhydrAMINE 50 MG/ML VIAL IV ONE (23:52)
[2021-10-24 00:17] LABS: Basophils # (Auto) 0.1 K/mm3 (0.0-0.1); Basophils % (Auto) 1.6 % (0.0-1.8); Hematocrit 40.2 % (30.3-42.9); Hemoglobin 12.7 gm/dl (10.1-14.3); Lymphocytes # (Auto) 0.5 K/mm3 (1.2-5.4); Lymphocytes % (Auto) 11.6 % (13.4-35.0); Mean Corpuscular HGB Conc 32 % (30-34); Mean Corpuscular Volume 87 fl (79-97); Monocytes # (Auto) 0.3 K/mm3 (0.0-0.8); Monocytes % (Auto) 6.1 % (0.0-7.3); Red Blood Count 4.64 M/mm3 (3.65-5.03); Red Cell Distribution Width 18.6 % (13.2-15.2)
[2021-10-24 00:18] LABS: Platelet Count 79 K/mm3 (140-440)
--- NOTE | 2021-10-24 00:22 | Event Note ---
ED Screening Note Date of service: 10/24/21 Time: 00:20 ED Screening Note: Patient 25-year-old female with history of pancreatitis EtOH related presents for abdominal pain with nausea vomiting x2 days. His last drink was yesterday. Describes left upper quadrant pain as 7/10 sharp stabbing aching and constant. Pain is accompanied by nausea vomiting and unable to tolerate p.o. intake. Denies fevers or chills. No cough or shortness of breath no chest pain. This initial assessment/diagnostic orders/clinical plan/treatment(s) is/are subject to change based on patients health status, clinical progression and re- assessment by fellow clinical providers in the ED. Further treatment and workup at subsequent clinical providers discretion. Patient/guardian urged not to elope from the ED as their condition may be serious if not clinically assessed and managed. Initial orders include: CMP, CBC , Lipase, UA, Hcg, IV, NS, Zofran, Morphine, CT abd pelv wcon
[2021-10-24] MEDS ORDERED: METOCLOPRAMIDE 10 MG/2 ML INJ IV ONE ×2 (00:32→00:33)
[2021-10-24] MEDS ORDERED: METOCLOPRAMIDE 10 MG/2 ML INJ ONE (00:33)
[2021-10-24 00:43] LABS: Alanine Aminotransferase 47 units/L (7-56); Albumin 5.2 g/dL (3.9-5); Blood Urea Nitrogen 13 mg/dL (7-17); Calcium 10.1 mg/dL (8.4-10.2); Hemolysis Index 24
[2021-10-24 01:38] LABS: BUN/Creatinine Ratio 19
[2021-10-24 02:38] LABS: Bilirubin,Urine NEG (Negative); Blood,Urine NEG (Negative); Color,Urine Yellow (Yellow); Mucus,Urine 2+ /HPF; Urobilinogen,Urine < 2.0 mg/dL (<2.0)
[2021-10-24 02:41] LABS: HCG Qualitative,Urine Negative (Negative)
--- NOTE | 2021-10-24 02:57 | Cat Scan Report ---
CT ABDOMEN AND PELVIS WITH CONTRAST INDICATION / CLINICAL INFORMATION: Unspecified abdominal pain with nausea and vomiting. History of pancreatitis. TECHNIQUE: Axial CT images were obtained through the abdomen and pelvis after 100 cc Omnipaque [address] scans at this location are performed using CT dose reduction for ALARA by means of automated exposure control. COMPARISON: CT abdomen and pelvis without contrast from 04/23/2019. FINDINGS: LOWER CHEST: No significant abnormality. LIVER: The liver is enlarged with the right hepatic lobe measuring 20 cm in length. There is marked s teatosis. No other significant abnormality. BILIARY: The gallbladder is unremarkable. No biliary ductal dilatation. PANCREAS: No significant abnormality. SPLEEN: No significant abnormality. ADRENALS: No significant abnormality. KIDNEYS / URETERS: No significant abnormality. GI TRACT: There is generalized mild colonic thickening with mild surrounding inflammation. Multiple n onspecific fluid filled distal small bowel loops are noted without small bowel dilatation. No signifi cant abnormality of the stomach. The appendix is unremarkable. PERITONEUM: No free fluid. No free air. No fluid collection. LYMPH NODES: No significant adenopathy. VASCULATURE: No significant abnormality. URINARY BLADDER: No significant abnormality. REPRODUCTIVE ORGANS: No significant abnormality. ADDITIONAL FINDINGS: None. BONES: No significant abnormality. IMPRESSION: 1. Uncomplicated mild acute enterocolitis without other acute findings. 2. Hepatomegaly and steatosis. Signer Name: Kip Philippe MD Signed: 10/24/2021 2:52 AM Workstation Name: [id number]
--- NOTE | 2021-10-24 03:46 | Emergency Department Report ---
ED General Adult HPI - General Chief complaint: Nausea/Vomiting/Diarrhea Source: patient, EMS Mode of arrival: Ambulatory Limitations: No Limitations - History of Present Illness Initial comments: Patient 25-year-old female with history of pancreatitis EtOH related presents for abdominal pain with nausea vomiting x2 days. His last drink was yesterday. Describes left upper quadrant pain as 7/10 sharp stabbing aching and constant. Pain is accompanied by nausea vomiting and unable to tolerate p.o. intake. Denies fevers or chills. No cough or shortness of breath no chest pain. Severity scale (0 -10): 4 - Related Data Previous Rx's Medication Instructions Recorded Last Taken Type Nicotine [Habitrol] 21 mg TD QDAY #15 patch 04/25/19 Unknown Rx Oxycodone HCl/Acetaminophen 1 each PO Q6HR PRN #15 tablet 04/25/19 Unknown Rx [Percocet 10/325 mg] Thiamine [Vitamin B-1] 100 mg PO QDAY #30 tablet 04/25/19 Unknown Rx levoFLOXacin [Levaquin TAB] 500 mg PO QDAY #5 tablet 04/25/19 Unknown Rx Ondansetron [Zofran Odt] 4 mg PO Q8HR PRN #20 tab.rapdis 04/30/19 Unknown Rx Promethazine [Phenergan] 25 mg PO Q6HR PRN #30 tab 04/30/19 Unknown Rx Dicyclomine [Bentyl] 10 mg PO QID PRN #40 capsule 05/02/19 Unknown Rx Sucralfate [Carafate] 1 gm PO ACHS 7 Days #28 tablet 05/02/19 Unknown Rx FLUoxetine [PROzac] 20 mg PO QDAY #30 capsule 11/28/19 Unknown Rx risperiDONE [RisperDAL] 0.5 mg PO BID #60 tablet 11/28/19 Unknown Rx Ondansetron [Zofran Odt] 4 mg PO Q8HR PRN #15 tab.rapdis 01/17/20 Unknown Rx Omeprazole 40 mg PO DAILY #20 capsule. 02/05/20 Unknown Rx Hyoscyamine Subl [Levsin Sl 0.125 0.125 mg PO Q6HR #14 tablet 05/12/20 Unknown Rx TAB] Ondansetron (Nf) [Zofran TAB] 8 mg PO Q8HR #14 tablet 05/12/20 Unknown Rx levETIRAcetam [Keppra TAB] 1,000 mg PO BID 30 Days #60 tab 07/21/20 Unknown Rx Docusate Sodium [Colace] 100 mg PO BID PRN #30 capsule 09/08/20 Unknown Rx Hydrocort/Pramoxine [Proctofoam-Hc] 10 gm [place] BID PRN #1 can 09/08/20 Unknown Rx Sulfamethoxazole/Trimethoprim 1 each PO BID 10 Days #20 tablet 09/08/20 Unknown Rx [Bactrim DS TAB] Naproxen 500 mg PO BID #20 tablet 02/11/21 Unknown Rx Ondansetron [Zofran Odt] 4 mg PO Q4H #20 tab.rapdis 04/14/21 Unknown Rx Ciprofloxacin HCl 500 mg PO BID 7 Days #14 tablet 10/24/21 Unknown Rx Dicyclomine [Bentyl] 10 mg PO QID PRN #30 capsule 10/24/21 Unknown Rx Omeprazole 40 mg PO BID #60 capsule.dr 10/24/21 Unknown Rx metroNIDAZOLE [Flagyl] 500 mg PO Q8HR 7 Days #21 tablet 10/24/21 Unknown Rx traMADoL [Ultram] 50 mg PO Q6HR PRN #12 tablet 10/24/21 Unknown Rx Allergies Allergy/AdvReac Type Severity Reaction Status Date / Time apple Allergy Itching Verified 04/30/19 09:22 Fish Containing Products Allergy Itching Verified 04/30/19 09:22 hydromorphone [From Dilaudid] Allergy Itching Verified 11/27/19 04:33 ED Review of Systems ROS: Stated complaint: Other details as noted in HPI Constitutional: denies: chills, fever Eyes: denies: eye pain, eye discharge, vision change ENT: denies: ear pain, throat pain Respiratory: denies: cough, shortness of breath, wheezing Cardiovascular: denies: chest pain, palpitations Endocrine: no symptoms reported Gastrointestinal: abdominal pain, nausea, vomiting. denies: diarrhea, constipation, melena Genitourinary: denies: urgency, dysuria, discharge Musculoskeletal: denies: back pain, joint swelling, arthralgia Skin: denies: rash, lesions Neurological: denies: headache, weakness, paresthesias, vertigo Psychiatric: as per HPI Hematological/Lymphatic: denies: easy bleeding, easy bruising ED Past Medical Hx - Past Medical History Previous Medical History?: Yes Hx Congestive Heart Failure: No Hx Diabetes: No Hx Seizures: Yes Hx Psychiatric Treatment: Yes (Depression, SI, Cutter, Schizophrenia) Hx Asthma: Yes Hx COPD: No Additional medical history: Alcoholic pancreatitis - Surgical History Additional Surgical History: foot - Social History Smoking Status: Current Every Day Smoker Substance Use Type: Alcohol - Medications Home Medications: Home Medications Medication Instructions Recorded Confirmed Last Taken Type Nicotine [Habitrol] 21 mg TD QDAY #15 patch 04/25/19 04/30/19 Unknown Rx Oxycodone HCl/Acetaminophen 1 each PO Q6HR PRN #15 tablet 04/25/19 04/30/19 Unknown Rx [Percocet 10/325 mg] Thiamine [Vitamin B-1] 100 mg PO QDAY #30 tablet 04/25/19 04/30/19 Unknown Rx levoFLOXacin [Levaquin TAB] 500 mg PO QDAY #5 tablet 04/25/19 04/30/19 Unknown Rx Ondansetron [Zofran Odt] 4 mg PO Q8HR PRN #20 tab.rapdis 04/30/19 Unknown Rx Promethazine [Phenergan] 25 mg PO Q6HR PRN #30 tab 04/30/19 Unknown Rx Dicyclomine [Bentyl] 10 mg PO QID PRN #40 capsule 05/02/19 Unknown Rx Sucralfate [Carafate] 1 gm PO ACHS 7 Days #28 tablet 05/02/19 Unknown Rx FLUoxetine [PROzac] 20 mg PO QDAY #30 capsule 11/28/19 Unknown Rx risperiDONE [RisperDAL] 0.5 mg PO BID #60 tablet 11/28/19 Unknown Rx Ondansetron [Zofran Odt] 4 mg PO Q8HR PRN #15 tab.rapdis 01/17/20 Unknown Rx Omeprazole 40 mg PO DAILY #20 capsule. 02/05/20 Unknown Rx Hyoscyamine Subl [Levsin Sl 0.125 0.125 mg PO Q6HR #14 tablet 05/12/20 Unknown Rx TAB] Ondansetron (Nf) [Zofran TAB] 8 mg PO Q8HR #14 tablet 05/12/20 Unknown Rx levETIRAcetam [Keppra TAB] 1,000 mg PO BID 30 Days #60 tab 07/21/20 Unknown Rx Docusate Sodium [Colace] 100 mg PO BID PRN #30 capsule 09/08/20 Unknown Rx Hydrocort/Pramoxine [Proctofoam-Hc] 10 gm [place] BID PRN #1 can 09/08/20 Unknown Rx Sulfamethoxazole/Trimethoprim 1 each PO BID 10 Days #20 tablet 09/08/20 Unknown Rx [Bactrim DS TAB] Naproxen 500 mg PO BID #20 tablet 02/11/21 Unknown Rx Ondansetron [Zofran Odt] 4 mg PO Q4H #20 tab.rapdis 04/14/21 Unknown Rx Ciprofloxacin HCl 500 mg PO BID 7 Days #14 tablet 10/24/21 Unknown Rx Dicyclomine [Bentyl] 10 mg PO QID PRN #30 capsule 10/24/21 Unknown Rx Omeprazole 40 mg PO BID #60 capsule.dr 10/24/21 Unknown Rx metroNIDAZOLE [Flagyl] 500 mg PO Q8HR 7 Days #21 tablet 10/24/21 Unknown Rx traMADoL [Ultram] 50 mg PO Q6HR PRN #12 tablet 10/24/21 Unknown Rx ED Physical Exam - General Limitations: No Limitations General appearance: alert, in no apparent distress - Head Head exam: Present: atraumatic, normocephalic - Eye Eye exam: Present: normal appearance - ENT ENT exam: Present: mucous membranes moist - Neck Neck exam: Present: normal inspection - Respiratory Respiratory exam: Present: normal lung sounds bilaterally. Absent: respiratory distress, wheezes, stridor, chest wall tenderness - Cardiovascular Cardiovascular Exam: Present: regular rate, normal rhythm, normal heart sounds. Absent: systolic murmur, diastolic murmur, rubs, gallop - GI/Abdominal GI/Abdominal exam: Present: soft, tenderness (bilat lower abd ), normal bowel sounds. Absent: distended, guarding, rebound, rigid, bruit, hernia - Expanded GI/Abdominal Exam Expanded GI/Abdominal exam: Absent: psoas sign, obturator sign, heel tap sign, Streeter's sign, Rovsing's sign, tenderness at Mcburney's Point, ascites - Rectal Rectal exam: Present: deferred - Extremities Exam Extremities exam: Present: normal inspection, full ROM. Absent: tenderness - Back Exam Back exam: Present: normal inspection, full ROM. Absent: CVA tenderness (R), CVA tenderness (L) - Neurological Exam Neurological exam: Present: alert, oriented X3, CN II-XII intact, normal gait - Psychiatric Psychiatric exam: Present: normal affect, normal mood - Skin Skin exam: Present: warm, dry, intact, normal color. Absent: rash ED Course Vital Signs 10/23/21 18:01 Temperature 98.1 F Pulse Rate 90 Respiratory 16 Rate Blood Pressure 140/90 [Left] O2 Sat by Pulse 98 Oximetry ED Medical Decision Making - Lab Data Result diagrams: 10/23/21 23:59 10/23/21 23:59 Labs 10/23/21 10/23/21 10/24/21 23:59 23:59 01:54 WBC 4.6 RBC 4.64 Hgb 12.7 Hct 40.2 MCV 87 MCH 27 L MCHC 32 RDW 18.6 H Plt Count 79 L Lymph % (Auto) 11.6 L [place] % (Auto) 6.1 Eos % (Auto) 0.0 Baso % (Auto) 1.6 Lymph # (Auto) 0.5 L [place] # (Auto) 0.3 Eos # (Auto) 0.0 Baso # (Auto) 0.1 Seg Neutrophils % 80.7 H Seg Neutrophils # 3.7 Sodium 143 Potassium 4.3 Chloride 96.9 L Carbon Dioxide 18 L Anion Gap 32 BUN 13 Creatinine 0.7 Estimated GFR > 60 BUN/Creatinine Ratio 19 Glucose 108 H Calcium 10.1 Total Bilirubin 0.90 AST 127 H ALT 47 Alkaline Phosphatase 63 Total Protein 8.9 H Albumin 5.2 H Albumin/Globulin Ratio 1.4 Lipase 297 H Urine Color Yellow Urine Turbidity Clear Urine pH 5.0 Ur Specific [place] 1.029 Urine Protein 100 mg/dl Urine Glucose (UA) Neg Urine Ketones 80 Urine Blood Neg Urine Nitrite Neg Urine Bilirubin Neg Urine Urobilinogen < 2.0 Ur Leukocyte Esterase Neg Urine WBC (Auto) 1.0 Urine RBC (Auto) 1.0 U Epithel Cells (Auto) 5.0 Urine Mucus 2+ Urine HCG, Qual Negative - Radiology Data Radiology results: report reviewed, image reviewed CT ABDOMEN AND PELVIS WITH CONTRAST INDICATION / CLINICAL INFORMATION: Unspecified abdominal pain with nausea and vomiting. History of pancreatitis. TECHNIQUE: Axial CT images were obtained through the abdomen and pelvis after 100 cc Omnipaque [address] scans at this location are performed using CT dose reduction for ALARA by means of automated exposure control. COMPARISON: CT abdomen and pelvis without contrast from 04/23/2019. FINDINGS: LOWER CHEST: No significant abnormality. LIVER: The liver is enlarged with the right hepatic lobe measuring 20 cm in length. There is marked steatosis. No other significant abnormality. BILIARY: The gallbladder is unremarkable. No biliary ductal dilatation. PANCREAS: No significant abnormality. SPLEEN: No significant abnormality. ADRENALS: No significant abnormality. KIDNEYS / URETERS: No significant abnormality. GI TRACT: There is generalized mild colonic thickening with mild surrounding inflammation. Multiple nonspecific fluid filled distal small bowel loops are noted without small bowel dilatation. No significant abnormality of the stomach. The appendix is unremarkable. PERITONEUM: No free fluid. No free air. No fluid collection. LYMPH NODES: No significant adenopathy. VASCULATURE: No significant abnormality. URINARY BLADDER: No significant abnormality. REPRODUCTIVE ORGANS: No significant abnormality. ADDITIONAL FINDINGS: None. BONES: No significant abnormality. IMPRESSION: 1. Uncomplicated mild acute enterocolitis without other acute findings. 2. Hepatomegaly and steatosis. Signer Name: Kip Philippe MD Signed: 10/24/2021 2:52 AM Workstation Name: [id number] - Medical Decision Making CT abdomen and pelvis mild enterocolitis plan DC to home with prescriptions, follow-up with [facility] as scheduled. Return to emergency department should symptoms worsen. Stop alcohol intake. Stop smoking. Patient tolerating p.o. intake at this time there is no fevers no chills no nausea or vomiting. Critical care attestation.: If time is entered above; I have spent that time in minutes in the direct care of this critically ill patient, excluding procedure time. ED Disposition Clinical Impression: Enterocolitis Abdominal pain Qualifiers: Abdominal location: generalized Qualified Code(s): R10.84 - Generalized abdominal pain Disposition: 01 HOME / SELF CARE / HOMELESS Is pt being admited?: No Does the pt Need Aspirin: No Condition: Stable Instructions: Abdominal Pain, Adult, Colitis Additional Instructions: Take medications as prescribed, follow-up with your doctor in 2 to 3 days. Follow-up with [facility] as scheduled. Return to emergency should symptoms worsen. Prescriptions: Dicyclomine [Bentyl] 10 mg PO QID PRN #30 capsule PRN Reason: abdominal spasm Ciprofloxacin HCl 500 mg PO BID 7 Days #14 tablet metroNIDAZOLE [Flagyl] 500 mg PO Q8HR 7 Days #21 tablet Omeprazole 40 mg PO BID #60 capsule. traMADoL [Ultram] 50 mg PO Q6HR PRN #12 tablet PRN Reason: Pain Referrals: CHANCE CAMARGO MD [Staff Physician] - 3-5 Days [facility] [Provider Group] - 3-5 Days Forms: Work/School Release Form(ED) Time of Disposition: 03:51
[2021-10-24 04:37] VITALS: BP 138/80
== END 2021-10-24 04:28 | disposition home or self-care (01) ==
LOC: ED 18:00
DX: K52.9 Noninfective gastroenteritis and colitis, unspecified (principal); F20.9 Schizophrenia, unspecified; J45.909 Unspecified asthma, uncomplicated; F17.200 Nicotine dependence, unspecified, uncomplicated
CPT/HCPCS: 36415; 74177; 80053; 81001; 81025; 83690; 85025; 96361; 96374; 96375; 99284; J1200; J2270; J2405; J2765; J7030; Q9967; Q0162